=== PATIENT | female | born 1985 | race Caucasian/White ===

== ENCOUNTER 2022-09-05 11:06 | Outpatient (REF) | payer MEDICARE, MEDICAID, SELFPAY ==
--- NOTE | 2022-09-05 11:14 | ECG_ITS ---
Test Reason : R42 Blood Pressure : / mmHG Vent. Rate : 069 BPM Atrial Rate : 069 BPM P-R Int : 150 ms QRS Dur : 084 ms QT Int : 398 ms P-R-T Axes : 049 080 018 degrees QTc Int : 426 ms Normal sinus rhythm with sinus arrhythmia Normal ECG No previous ECGs available Referred By: Mayelin Carey Electronically Signed By:DENNIS TOBIAS MD
[2022-09-05 11:30] LABS: MANUAL DIFF FLAG NO
[2022-09-05 11:59] LABS: Basophils Percent Auto 0.9 % (0-2); Eosinophils Percent Auto 0.9 % (0-4); Hemoglobin 13.1 g/dl (12.0-16.0); Imm Gran Abs Auto 0.01 X10*3/uL (0.00-0.03); Imm Gran Pct Auto 0.2 % (0.0-0.4); Lymphocytes Percent Auto 43.8 % (20-40); Mean Corpuscular HGB Conc 33.6 g/dl (31.0-35.0); Mean Corpuscular Hemoglobin 29.2 pg (27.0-33.0); Mean Corpuscular Volume 87.1 fL (80.0-98.0); Mean Platelet Volume 10.3 fL (9.4-12.3); Monocytes Absolute Auto 0.4 X10*3/uL (0.1-1.2); Monocytes Percent Auto 8.2 % (2-11); Neutrophils Absolute Auto 2.1 x10*3/uL (2.0-8.3); Platelet Count 265 X10*3/uL (160-400); Red Blood Count 4.48 X10*6/uL (4.20-5.50); Red Cell Distribution Width 12.7 % (11.0-16.0); White Blood Count 4.6 X10*3/uL (4.8-10.8)
[2022-09-05 15:11] LABS: Alanine Aminotransferase 32 U/L (0-31); Albumin Level 4.4 g/dL (3.5-5.0); Alkaline Phosphatase 45 U/L (39-117); Anion Gap 14 (12-20); Aspartate Amino Transferase 26 U/L (5-31); Bilirubin Total 0.6 mg/dL (0.0-1.0); Blood Urea Nitrogen 9 mg/dL (9-16); Calcium 9.5 mg/dL (8.4-10.2); Carbon Dioxide 25 mmol/L (22-29); Chloride 106 mmol/L (96-108); Cholesterol 200 mg/dL; Estimated Glomerular Filt Rate > 60; Glucose Random 83 mg/dL (60-115); HDL Cholesterol 57 mg/dL; LDL Cholesterol Calculated 128 mg/dl; Potassium 4.9 mmol/L (3.3-5.1); Sodium 140 mmol/L (135-145); TSH reflex Free T4 1.34 uIU/mL (0.32-4.0); Total Protein 6.9 g/dL (6.5-8.0); Triglycerides 78 mg/dL; Vitamin D 25-OH Total 29.2 ng/mL (>30)
[2022-09-05 15:22] LABS: Vitamin B12 425 pg/mL (200-900)
== END 2022-09-05 11:07 | disposition home or self-care (01) ==
LOC: HO.LAB 11:06
PROVIDERS: PCP Nurse Practitioner Family; Visit Provider Nurse Practitioner Family
DX: Z13.21 Encounter for screening for nutritional disorder (principal); Z13.29 Encounter for screening for other suspected endocrine disorder; Z13.0 Encounter for screening for diseases of the blood and blood-forming organs and certain disorders involving the immune mechanism; E78.00 Pure hypercholesterolemia, unspecified
CPT/HCPCS: 36415; 80053; 80061; 82306; 82607; 84443; 85025; 93005

== ENCOUNTER 2022-10-06 09:57 | Outpatient (REF) | payer MEDICARE, MEDICAID, SELFPAY ==
[2022-10-06 11:46] LABS: Vitamin D 25-OH Total 30.4 ng/mL (>30)
== END 2022-10-06 09:58 | disposition home or self-care (01) ==
LOC: HO.LAB 09:57
PROVIDERS: PCP Nurse Practitioner Family; Visit Provider Nurse Practitioner Family
DX: E55.9 Vitamin D deficiency, unspecified (principal)
CPT/HCPCS: 36415; 82306

== ENCOUNTER 2023-05-03 08:32 | Outpatient (AMB) | payer MEDICARE, MEDICAID, SELFPAY ==
--- NOTE | 2023-05-03 08:33 | MHC.PC.OV ---
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 Accompanied by: Self / Same As Patient Allergies Latex, Natural Rubber Allergy (Mild, Verified 05/03/23 08:34) rash Tobacco use date assessed: 05/03/23 Dental Screening Dental Screen Date: 05/03/23 Did you have a dental visit in the last 12 months?: Yes Did you have a dental problem in the last 6 months where you did not have access to dental care?: No Was dental information given to patient?: Patient has dentist HPI HPI Comments History of Present Illness Details 37-year-old female history of Otero's esophagus, anxiety, bipolar and depression.Presents today for follow up appointment last seen in September. Patient states lightheaded/dizziness and palpitations daily, no syncope. Three day Holter monitor ordered to further evaluate this. Patient states she is interested in seeing a counselor will follow-up on referral that was placed in August as well as seeing a psychiatrist. Referral entered for this. Patient reports few months ago she did 1 episode of dark blood in her stool and abdominal cramping. Has not yet seen Gastroenterology for history of Otero's esophagus. Patient advised to follow-up if she has re-occurance of blood in her stool,abd pain. Patient also reports she cut her omeprazole to 10 mg daily, patient advised to continue on her omeprazole 20 mg daily and schedule appointment with gastroenterology, previously referred in August. Patient reports she took a Food sensitivity test at home which revealed a moderate allergy to oregano, patient requesting to see an cribber to further evaluate this. Referral entered. [facility]LY [facility], [facility] Medical History Intestinal polyps Surgical History H/O tubal ligation Family History Maternal Grandmother Leukemia Maternal Grandfather Emphysema lung Paternal Grandmother Alcoholism Mother No problems noted. Father Substance abuse Maternal Uncle Myocardial infarct Social History Housing: Apartment Patient Tobacco Use Status: Never used Tobacco e-Cigarette/Vaping Use: Never Used Second Hand Smoke Exposure: No service: No Current occupational status: unemployed Cognitive needs: No Hearing needs: No Vision needs: No Questionnaire Thrive Questionnaire Date Thrive assessed: 09/01/22 I am a: Patient What is your living situation today?: I have a steady place to live Within the past 12 months, did the food you bought not last and you didn't have the money to get more?: I choose not to answer this question Within the past 12 months, did you worry whether your food would run out before you got money to buy more?: Sometimes True Please select the resources that you would like help with: Education MEGAN-7 AMB Questionnaire MEGAN-7 Date MEGAN - 7 assessed: 09/01/22 Source: Developed by Drs. Steven Mason, Gabby Mahajan, Daniel German and colleagues, with an educational cecil from [employer]. Review of Systems Const Denies chills, Denies fatigue, Denies fever(s) and Denies poor appetite Eyes Denies no additional complaints ENT Reports Normal hearing present Card Denies chest pain, Denies syncope, Reports rapid heart rate, Reports lightheadedness and Denies dyspnea Resp Denies cough and Denies dyspnea GI Denies change in stool character, Denies constipation, Denies diarrhea, Denies nausea, Denies vomiting and Reports other Denies urinary frequency, Denies dysuria and Denies urinary urgency Neuro Reports Normal hearing present, Denies confusion and Denies syncope Psych Denies confusion Endo Denies fatigue Physical exam (Primary Care) Vital Signs: Last Vital Signs Pulse 86 05/03/23 08:35 BP 110/70 05/03/23 08:35 Pulse Ox 98 05/03/23 08:35 Oxygen Delivery Method Room Air 05/03/23 08:35 BMI result Body Mass Index 26.8 Tobacco/Smoking Status: Tobacco use Status Tobacco use date assessed 05/03/23 05/03/23 08:35 Patient Tobacco Use Status Never used Tobacco 05/03/23 08:35 e-Cigarette/Vaping Use Never Used 05/03/23 08:35 Thrive Assessment: Date of Thrive Assessment Date Thrive assessed 09/01/22 05/03/23 08:35 Const General: No confusion Orientation/consciousness: No confusion HENMT Head: Yes normocephalic and Yes atraumatic Eyes Conjunctivae: conjunctivae normal Chest Chest palpation & inspection: normal inspection of the chest Resp Effort & Inspection: normal respiratory effort Auscultation: clear to auscultation bilaterally, no crackles, no rhonchi and no wheezes Cardio Rate: regular rate Rhythm: regular rhythm Heart sounds: S1 normal heart sound present and S2 normal heart sound present Peripheral pulses: dorsalis pedis present GI Inspection: Yes normal to inspection General: Yes no CVA tenderness Back/Spine/Pelvis Back: no CVA tenderness Neuro General: No confusion Cranial nerves: Yes Normal hearing present Extrem General: No edema Assessment and Plan Assessment & Plan (1) Anxiety and depression: Code(s): F41.9 - Anxiety disorder, unspecified; F32.A - Depression, unspecified Plan: Referral entered to Psychiatry and will follow-up on counseling referral placed in August. (2) Vitamin D deficiency: Code(s): E55.9 - Vitamin D deficiency, unspecified Plan: Continue on vitamin-D supplements. (3) Palpitations: Code(s): R00.2 - Palpitations Plan: 3 day Holter monitor ordered to further evaluate. (4) Bipolar disorder: Code(s): F31.9 - Bipolar disorder, unspecified Plan: Referral placed to Psychiatry to establish care. (5) Otero's esophagus: Code(s): K22.70 - Otero's esophagus without dysplasia Plan: Patient previously referred to GI in August patient advised to please call central scheduling to put pace appointment. Signs and symptoms reviewed with patient when to seek emergency medical attention or follow-up with PCP. Continue on omeprazole 20 mg daily. Plan Keep scheduled physical exam in September or follow-up sooner if needed. Orders: Orders ECG 3 day holter monitor Today R00.2 - Palpitations Referrals Psychiatry Referral F31.9 - Bipolar disorder, unspecified, F32.A - Depression, unspecified, F41.9 - Anxiety disorder, unspecified Allergy & Immunology Referral T78.1XXA - Other adverse food reactions, not elsewhere classified, initial encounter Coding Level of Care Code Est Pt Level 4 (08115) Diagnoses Anxiety and depression F41.9; F32.A Vitamin D deficiency E55.9 Palpitations R00.2 Bipolar disorder F31.9 Otero's esophagus K22.70
[2023-05-03 08:35] VITALS: BP 110/70; PULSE 86; O2SAT 98; BMI 26.8
== END 2023-05-03 09:08 | disposition home or self-care (01) ==
PROVIDERS: PCP Nurse Practitioner Family; Visit Provider Nurse Practitioner Family
DX: F41.9 Anxiety disorder, unspecified (principal); E55.9 Vitamin D deficiency, unspecified; F31.9 Bipolar disorder, unspecified; K22.70 Barrett's esophagus without dysplasia; R00.2 Palpitations
CPT/HCPCS: 99214

== ENCOUNTER → 2023-05-08 11:37 | Outpatient (REF) | payer MEDICARE, MEDICAID, SELFPAY ==
--- NOTE | 2023-05-08 11:39 | HM_ITS ---
* Total monitoring time 3 days. * Underlying rhythm is sinus. Average ventricular rate 77/Min. Range 40 to 155/Min. * Very rare supraventricular and ventricular ectopy. * No sustained arrhythmias. * No significant pauses or AV blocks. * Various symptoms are described diary including fluttering, anxious, chest discomfort, panic attack, sharp pain but they all correlate with sinus rhythm and some sinus tachycardia. MTDD
== END ==
LOC: HO.CARD 11:37
PROVIDERS: PCP Nurse Practitioner Family; Visit Provider Nurse Practitioner Family
DX: R00.2 Palpitations (principal)
CPT/HCPCS: 93242

== ENCOUNTER → 2023-05-08 11:39 | Outpatient (BNV) | payer MEDICARE, MEDICAID, SELFPAY | PROVIDERS: PCP Nurse Practitioner Family; Visit Provider Internal Medicine | DX: I47.1 Supraventricular tachycardia (principal) | CPT/HCPCS: 93244 ==

== ENCOUNTER 2023-05-31 08:02 | Outpatient (AMB) | payer MEDICARE, MEDICAID, SELFPAY ==
--- NOTE | 2023-05-31 08:24 | MHC.PC.OV ---
Vital Signs 05/31/23 08:25 Height 5 ft 6 in Weight 162 lb BMI 26.1 BP 114/72 Blood Pressure Location Lt brachial Position Sitting Pulse 81 Pulse Source Pulse Oximeter Pulse Oximetry (%) 98 Oxygen Delivery Method Room Air Intake Visit Reasons: office visit Allergies Latex, Natural Rubber Allergy (Mild, Verified 05/31/23 08:25) rash Tobacco use date assessed: 05/03/23 Dental Screening Dental Screen Date: 05/31/23 Did you have a dental visit in the last 12 months?: No Did you have a dental problem in the last 6 months where you did not have access to dental care?: No Was dental information given to patient?: No HPI HPI Comments History of Present Illness Details 37-year-old female history of Otero's esophagus, anxiety, bipolar and depression.Presents today for follow up appointment last seen in September. Patient states lightheaded/dizziness and palpitations daily, no syncope.??Patient reports today for follow-up visit to review altered monitor results. Results final ran detail with patient all her questions were answered. 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 Patient also reports that she feels history of anxiety disorder bipolar could be contributing to her palpitations patient reports that she is going to psychiatric walk-in hours today to discussed starting on medications. Patient reports started speaking with a counselor Radha and is on a wait list for psychiatry. Holter Monitor: Total monitoring time 3 days. Underlying rhythm is sinus.? Average ventricular rate 77/Min.? Range 40 to 155/Min. Very rare supraventricular and ventricular ectopy. No sustained arrhythmias. No significant pauses or AV blocks. Various symptoms are described diary including fluttering, anxious, chest discomfort, panic attack, sharp pain but they all correlate with sinus rhythm and some sinus tachycardia. [facility]LY [facility], [facility] Medical History Intestinal polyps Surgical History H/O tubal ligation Family History Maternal Grandmother Leukemia Maternal Grandfather Emphysema lung Paternal Grandmother Alcoholism Mother No problems noted. Father Substance abuse Maternal Uncle Myocardial infarct Social History Housing: Apartment Patient Tobacco Use Status: Former Tobacco user Tobacco use type: Cigarette e-Cigarette/Vaping Use: Never Used Second Hand Smoke Exposure: No service: No Current occupational status: unemployed Cognitive needs: No Hearing needs: No Vision needs: Yes Questionnaire PHQ-9 Over the last 2 weeks, how often have you been bothered by any of the following problems? 1. Little interest or pleasure in doing things: more than half the days 2. Feeling down, depressed, or hopeless: more than half the days 3. Trouble falling or staying asleep, or sleeping too much: nearly every day 4. Feeling tired or having little energy: more than half the days 5. Poor appetite or overeating: nearly every day (pt states poor apeptite) 6. Feeling bad about yourself - or that you are a failure or have let yourself or your family down: nearly every day 7. Trouble concentrating on things, such as reading the newspaper or watching television: nearly every day 8. Moving or speaking so slowly that other people could have noticed. Or the opposite - being so fidgety or restless that you have been moving around a lot more than usual: nearly every day 9. Thoughts that you would be better off or of hurting yourself in some way: not at all Total score: 21 Depression Screening Interpretation: Positive Source: Developed by Drs. Steven Mason, Gabby Mahajan, Daniel German and colleagues, with an educational cecil from [employer]. Thrive Questionnaire Date Thrive assessed: 05/31/23 I am a: Patient What is your living situation today?: I have a steady place to live Within the past 12 months, did the food you bought not last and you didn't have the money to get more?: Never true Within the past 12 months, did you worry whether your food would run out before you got money to buy more?: Never true Do you have trouble paying for medicines?: No Do you have trouble getting transportation to medical appointments?: No Do you have trouble paying your heating and electricity bill?: No Do you have trouble taking care of your child, family member or friend?: No Do you have trouble with day-to-day activities such as bathing, preparing meals, shopping, managing finances, etc.?: No Are you currently unemployed and looking for a job?: No Are you interested in more education?: No Currently or been in a relationship where the following occur: no concerns reported AUDIT C Alcohol Use Questionnaire (AUDIT-C) 1. How often do you have a drink containing alcohol?: Never (quit 10/22/21) 2. How many drinks containing alcohol do you have on a typical day when you are drinking?: 1 or 2 3. How often do you have six or more drinks on one occasion?: Never Total Score: 0 Score Reviewed/Action Taken: No MEGAN-7 AMB Questionnaire MEGAN-7 Date MEGAN - 7 assessed: 05/31/23 Feeling nervous, anxious, or on edge: 3 = Nearly every day Not being able to stop or control worryin = Nearly every day Worrying too much about different things: 3 = Nearly every day Trouble relaxin = Nearly every day Being so restless that it is hard to sit still: 3 = Nearly every day Becoming easily annoyed or irritable: 3 = Nearly every day Feeling afraid as if something awful might happen: 3 = Nearly every day Total MEGAN-7 score (0-4 normal; 5-9 mild; 10-14 moderate; 15-21 severe): 21 Source: Developed by Drs. Steven Mason, Gabby Mahajan, Daniel German and colleagues, with an educational cecil from [employer]. Review of Systems Const Denies chills, Denies fatigue, Denies fever(s) and Denies poor appetite Eyes Denies no additional complaints ENT Reports Normal hearing present Card Denies chest pain, Denies syncope, Denies rapid heart rate and Denies dyspnea Resp Denies cough and Denies dyspnea GI Denies change in stool character, Denies constipation, Denies diarrhea, Denies nausea and Denies vomiting Denies urinary frequency, Denies dysuria and Denies urinary urgency Neuro Reports Normal hearing present, Denies confusion and Denies syncope Psych Denies confusion Endo Denies fatigue Physical exam (Primary Care) Vital Signs: Last Vital Signs Pulse 81 05/31/23 08:25 BP 114/72 05/31/23 08:25 Pulse Ox 98 05/31/23 08:25 Oxygen Delivery Method Room Air 05/31/23 08:25 BMI result Body Mass Index 26.1 Tobacco/Smoking Status: Tobacco use Status Tobacco use date assessed 05/03/23 05/31/23 08:27 Patient Tobacco Use Status Former Tobacco user 05/31/23 08:30 Tobacco use type Cigarette 05/31/23 08:29 e-Cigarette/Vaping Use Never Used 05/31/23 08:27 PHQ-9: PHQ-9 Score PHQ-9: Total score 21 05/31/23 08:27 Depression Screening Interpretation: Positive Thrive Assessment: Date of Thrive Assessment Date Thrive assessed 05/31/23 05/31/23 08:27 Currently or been in a relationship where the following occur: no concerns reported Const General: No confusion Orientation/consciousness: No confusion HENMT Head: Yes normocephalic and Yes atraumatic Eyes Conjunctivae: conjunctivae normal Chest Chest palpation & inspection: normal inspection of the chest Resp Effort & Inspection: normal respiratory effort Auscultation: clear to auscultation bilaterally, no crackles, no rhonchi and no wheezes Cardio Rate: regular rate Rhythm: regular rhythm Heart sounds: S1 normal heart sound present and S2 normal heart sound present GI Inspection: Yes normal to inspection Neuro General: No confusion Cranial nerves: Yes Normal hearing present Extrem General: No edema Assessment and Plan Assessment & Plan (1) Otero's esophagus: Code(s): K22.70 - Otero's esophagus without dysplasia Plan: Continue to establish care with gastroenterology. (2) Palpitations: Code(s): R00.2 - Palpitations Plan: Keep scheduled appointment with Cardiology. (3) Anxiety and depression: Code(s): F41.9 - Anxiety disorder, unspecified; F32.A - Depression, unspecified Plan: Continue to follow with counseling. Patient reports going to psychiatry walk in hours today to dicuss starting on medications. Currently on wait list for psychiatry. (4) Bipolar disorder: Code(s): F31.9 - Bipolar disorder, unspecified Plan: Continue to follow with counseling. Patient reports going to psychiatry walk in hours today to dicuss starting on medications. Currently on wait list for psychiatry. Plan Keep scheduled appointment in September or follow up sooner if needed. Coding Level of Care Code Est Pt Level 3 (59735) Diagnoses Otero's esophagus K22.70 Palpitations R00.2 Anxiety and depression F41.9; F32.A Bipolar disorder F31.9 Additional Codes PHQ-9 - 66178 - PHQ-9 Billing: Y ([id number])
[2023-05-31 08:25] VITALS: BP 114/72; PULSE 81; O2SAT 98; BMI 26.1
== END 2023-05-31 08:47 | disposition home or self-care (01) ==
PROVIDERS: PCP Nurse Practitioner Family; Visit Provider Nurse Practitioner Family
DX: K22.70 Barrett's esophagus without dysplasia (principal); R00.2 Palpitations; F41.9 Anxiety disorder, unspecified; F31.9 Bipolar disorder, unspecified; F32.A Depression, unspecified
CPT/HCPCS: 99213

== ENCOUNTER 2023-06-20 14:09 | Outpatient (REF) | payer MEDICARE, MEDICAID, SELFPAY ==
[2023-06-20 15:43] LABS: Hematocrit 36.7 % (37.0-47.0); Mean Corpuscular HGB Conc 35.4 g/dl (31.0-35.0); Mean Corpuscular Hemoglobin 30.2 pg (27.0-33.0); Mean Corpuscular Volume 85.2 fL (80.0-98.0); Mean Platelet Volume 10.2 fL (9.4-12.3); Platelet Count 263 X10*3/uL (160-400); Red Blood Count 4.31 X10*6/uL (4.20-5.50); Red Cell Distribution Width 12.9 % (11.0-16.0); White Blood Count 5.8 X10*3/uL (4.8-10.8)
[2023-06-20 16:58] LABS: Alanine Aminotransferase 20 U/L (0-31); Albumin Level 4.4 g/dL (3.5-5.0); Alkaline Phosphatase 38 U/L (39-117); Anion Gap 12 (12-20); Aspartate Amino Transferase 21 U/L (5-31); Bilirubin Total 0.4 mg/dL (0.0-1.0); Blood Urea Nitrogen 6 mg/dL (9-16); C Reactive Protein < 0.04 mg/dL (< or = 0.50); Calcium 9.7 mg/dL (8.4-10.2); Carbon Dioxide 25 mmol/L (22-29); Chloride 108 mmol/L (96-108); Estimated Glomerular Filt Rate > 60; Glucose Random 86 mg/dL (60-115); Potassium 3.6 mmol/L (3.3-5.1); Sodium 141 mmol/L (135-145); Total Protein 7.1 g/dL (6.5-8.0)
[2023-06-20 17:04] LABS: TSH reflex Free T4 1.81 uIU/mL (0.32-4.0)
[2023-06-20 17:14] LABS: Folate 16.1 ng/mL (> or = 4.0); Vitamin B12 560 pg/mL (200-900)
[2023-06-24 15:03] LABS: Vitamin D 25-OH, D2 <4 ng/mL; Vitamin D 25-OH, D3 34 ng/mL; Vitamin D 25-OH, Total 34 ng/mL (30-100)
[2023-06-24 19:33] LABS: Transglutaminase Ab IgG <1.0 U/mL; Transglutaminase IgA <1.0 U/mL
== END 2023-06-20 14:10 | disposition home or self-care (01) ==
LOC: HO.LAB 14:09
PROVIDERS: PCP Nurse Practitioner Family; Visit Provider Nurse Practitioner Family
DX: K21.9 Gastro-esophageal reflux disease without esophagitis (principal); K22.70 Barrett's esophagus without dysplasia; K58.1 Irritable bowel syndrome with constipation; K59.01 Slow transit constipation; K58.0 Irritable bowel syndrome with diarrhea; R14.0 Abdominal distension (gaseous); E55.9 Vitamin D deficiency, unspecified; R10.9 Unspecified abdominal pain; Z87.19 Personal history of other diseases of the digestive system
CPT/HCPCS: 36415; 80053; 82306; 82607; 82746; 84443; 85027; 86140; 86364; 99202

== ENCOUNTER 2023-06-20 14:09 | Outpatient (AMB) | payer MEDICARE, MEDICAID, SELFPAY ==
--- NOTE | 2023-06-20 14:27 | MHC.OFFVIS ---
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 Patient was sent home with omeprazole which she just recently wean herself off. Patient also started eating better. She is avoiding certain dietary triggers that she noticed that are causing her symptoms. Patient stopped drinking 2 years ago. Patient also did allergen test [id number] and found out that she is allergic to multiple things that she was used to eating every single day like peppers, tomatoes, eggs, wheat. Patient however is trying to avoid dietary triggers. Reports postprandial loose stools and abdominal bloating. Patient is also burping, not passing much gas. Patient admits to being constipated. Tried smooth move tea in the past. Patient denies melena, hematochezia, unintentional weight loss or ribbon like stools. Patient denies dyspepsia, dysphagia or odynophagia. [facility] Medical History (Updated 06/20/23 @ 15:11 by Vilma Kilpatrick [facility]) Intestinal polyps Otero's esophagus Surgical History H/O tubal ligation Family History Maternal Grandmother Leukemia Maternal Grandfather Emphysema lung Paternal Grandmother Alcoholism Mother No problems noted. Father Substance abuse Maternal Uncle Myocardial infarct Social History Housing: Apartment Patient Tobacco Use Status: Former Tobacco user Tobacco use type: Cigarette e-Cigarette/Vaping Use: Never Used Second Hand Smoke Exposure: No service: No Current occupational status: unemployed Cognitive needs: No Hearing needs: No Vision needs: Yes Review of Systems Const Denies weight gain and Denies weight loss ENT Reports no additional complaints, Denies dysphagia and Denies odynophagia Card Reports no additional complaints Resp Reports no additional complaints GI Denies abdominal pain, Denies belching, Denies melena, Reports bloating, Reports hematochezia (Occasional), Reports constipation, Denies dysphagia, Denies excessive flatus, Denies dyspepsia, Denies heartburn, Denies diarrhea, Reports loose stools, Denies nausea, Denies odynophagia and Denies vomiting Reports no additional complaints Musc Reports no additional complaints Neuro Reports no additional complaints Psych Reports no additional complaints Endo Reports no additional complaints Physical Exam Vital Signs: Last Vital Signs Pulse 60 06/20/23 14:32 BP 105/60 06/20/23 14:32 BMI result Body Mass Index 27.0 Const General: healthy appearing, no acute distress and well developed Nutritional Appearance: well nourished Orientation/consciousness: patient oriented x3 HEENT Head: Yes normal to inspection, Yes normocephalic and Yes atraumatic Face and sinus: Yes normal facial exam Mouth: Normal oral and palatal mucosa present Throat: Yes posterior oropharynx normal, Yes tonsils normal and Yes uvula midline Eyes General: appearance normal, both eyes and all related structures Neck Neck: Yes normal visual inspection, Yes full ROM and Yes trachea midline Thyroid: Thyroid normal Resp Effort & Inspection: normal respiratory effort, able to speak in complete sentences, no tracheal deviation and symmetric chest movement Auscultation: clear to auscultation bilaterally Cardio Rate: regular rate Heart sounds: S1 normal heart sound present and S2 normal heart sound present GI Inspection: Yes normal to inspection and No distended Palpation (GI): Soft to palpation, not firm, nontender and No hepatosplenomegaly present Auscultation: normal bowel sounds General: Yes no CVA tenderness Back/Spine/Pelvis Back: no CVA tenderness Skin General skin exam: elasticity normal, turgor normal and dry skin Neuro General: patient oriented x3 Psych Appearance: grossly normal Mental Status: mental status grossly normal Speech and movement: Normal speech and movement present Affect: normal affect Assessment & Plan Assessment & Plan (1) History of Otero's esophagus: Code(s): Z87.19 - Personal history of other diseases of the digestive system Plan: History of Otero's esophagus. Patient will be sent for upper endoscopy to out Otero's, esophagitis, gastritis, duodenitis. Currently patient is not on any treatment. Previously treated with PPI (2) IBS (irritable bowel syndrome): Code(s): K58.9 - Irritable bowel syndrome without diarrhea Qualifiers: Irritable bowel syndrome type: with constipation Qualified Code(s): K58.1 - Irritable bowel syndrome with constipation Plan: Patient reports postprandial abdominal bloating occasional crampy. Patient states that she is constipated even though she occasionally will have loose stools. Will check for pancreatic insufficiency. Patient denies having history of pancreatitis in the past. C-reactive protein, transglutaminase, CBC, CMP, thyroid study, vitamin B12 and D levels. Discussed with patient avoiding dietary triggers. Discussed low FODMAP diet. List of food recommended as well as list of food to avoid given to patient. (3) Postprandial abdominal bloating: Code(s): R14.0 - Abdominal distension (gaseous) Plan: Occasional postprandial abdominal bloating most likely related to diet. Avoid lactose and gluten. Patient reports that when she tries to avoid gluten or lactose she feels better. Patient also reports to be constipated even though has occasional loose stools. (4) Constipation: Code(s): K59.00 - Constipation, unspecified Qualifiers: Constipation type: slow transit constipation Qualified Code(s): K59.01 - Slow transit constipation Plan: Patient can take Citrucel. Increased fluid intake and activity to promote better bowel motility. I will see her after upper endoscopy, sooner as needed basis. Patient is agreeable to this plan and verbalizes understanding of instructions. She was given the opportunity to ask questions and all questions answered. Thank you for allowing me participate in her care Orders: Orders Pancreatic Elastase-1 06/27/23 R10.9 - Unspecified abdominal pain C Reactive Protein 06/20/23 K58.9 - Irritable bowel syndrome without diarrhea Transglutaminase Ab IgG 06/20/23 R10.9 - Unspecified abdominal pain Transglutaminase IgA 06/20/23 R10.9 - Unspecified abdominal pain Complete Blood Count no Diff 06/20/23 K21.9 - Gastro-esophageal reflux disease without esophagitis Comprehensive Met. Panel 06/20/23 K21.9 - Gastro-esophageal reflux disease without esophagitis TSH reflex Free T4 06/20/23 K59.00 - Constipation, unspecified Vitamin B12 and Folate 06/20/23 R19.7 - Diarrhea, unspecified Vitamin D 25-OH (D2 and D3) 06/20/23 E55.9 - Vitamin D deficiency, unspecified Medications: New methylcellulose (laxative) (Citrucel) take it with full glass of water 500 mg PO DAILY 30 tabs 2RF K59.00 - Constipation, unspecified methylcellulose (laxative) (Citrucel) take it with full glass of water 500 mg PO DAILY 30 tabs 2RF K59.00 - Constipation, unspecified Coding Level of Care Code New Pt Level 4 (33126) Diagnoses History of Otero's esophagus Z87.19 Irritable bowel syndrome with constipation K58.1 Irritable bowel syndrome type: with constipation Postprandial abdominal bloating R14.0 Slow transit constipation K59.01 Constipation type: slow transit constipation Time Spent (min) 45 Comment 30 minutes spent with patient and additional 15 minutes spent reviewing her records
[2023-06-20 14:32] VITALS: BP 105/60; PULSE 60; BMI 27.0
== END 2023-06-20 15:12 | disposition home or self-care (01) ==
PROVIDERS: PCP Nurse Practitioner Family; Visit Provider Nurse Practitioner Family
DX: Z87.19 Personal history of other diseases of the digestive system (principal); K58.1 Irritable bowel syndrome with constipation; R14.0 Abdominal distension (gaseous); K59.01 Slow transit constipation
CPT/HCPCS: 99204

== ENCOUNTER 2023-06-27 10:36 | Outpatient (REF) | payer MEDICARE, MEDICAID, SELFPAY ==
[2023-07-04 23:24] LABS: Pancreatic Elastase-1 >500 mcg/g
== END 2023-06-27 10:37 | disposition home or self-care (01) ==
LOC: HO.LNP 10:36
PROVIDERS: Visit Provider Nurse Practitioner Family
DX: R10.9 Unspecified abdominal pain (principal)
CPT/HCPCS: 82656

== ENCOUNTER 2023-07-25 10:58 | Outpatient (AMB) | payer MEDICARE, MEDICAID, SELFPAY ==
--- NOTE | 2023-07-25 11:02 | A.OFFVIS_ITS ---
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 She is a 38-year-old woman with longstanding history of symptoms, multiple different kinds of symptoms. She initially attributed to as growing up and then alcohol use. However she says she has been sober for about 2 years and continues to experience disease symptoms. She does have underlying history of anxiety and bipolar disorder although she thinks the symptoms are probably on related to the same. She has multiple different times of palpitation including gassy feeling in the chest with bubble as well as occasional fluttering in her chest. She recently had a Holter monitor which did not show any significant arrhythmias and her symptoms correlated with mostly sinus rhythm was sinus tachycardia. She also intermittently feels sudden at renal in [place] where she feels heart is rapidly beating along with diffuse muscle weakness and discomfort followed by weakness. This symptoms happen about twice a week and are not related to any clear triggers. She denies excessive caffeine use or any use of frtp-qxm-klhgfya medications or herbal extracts. She says recently she has not been exercising much because of the symptoms and she is concerned. She also complains of constant dizziness. She has not had any syncopal episodes. However as a teenager she would get tunnel vision and she is started to modify her life when she gets these symptoms. She denies any other cardiac symptoms exertional chest pain, shortness of breath. She drinks plenty of water, says about a gal a day. She has recently has incorporated salt intake in her diet. [facility] Medical History Intestinal polyps Otero's esophagus Surgical History H/O tubal ligation Family History Maternal Grandmother Leukemia Maternal Grandfather Emphysema lung Paternal Grandmother Alcoholism Mother No problems noted. Father Substance abuse Maternal Uncle Myocardial infarct Social History Housing: Apartment Patient Tobacco Use Status: Former Tobacco user Tobacco use type: Cigarette e-Cigarette/Vaping Use: Never Used Second Hand Smoke Exposure: No service: No Current occupational status: unemployed Cognitive needs: No Hearing needs: No Vision needs: Yes Review of Systems Const Denies chills, Denies daytime sleepiness, Denies fatigue, Denies fever(s), Denies frequent falls, Denies poor appetite, Denies snoring, Denies stops breathing during sleep, Denies weakness, Denies weight gain and Denies weight loss Eyes Denies loss of vision ENT Denies dizziness and Denies hearing loss Card Denies chest pain, Denies claudication, Denies leg edema, Denies lightheadedness, Denies palpitations, Denies dyspnea, Denies dyspnea on exertion and Denies orthopnea Resp Denies cough, Denies excessive phlegm production, Denies dyspnea, Denies dyspnea on exertion, Denies snoring and Denies wheezing GI Denies abdominal pain, Denies hematochezia, Denies change in bowel habits, Denies nausea and Denies vomiting Denies urinary frequency and Denies dysuria Musc Denies arthralgias, Denies muscle weakness, Denies numbness and Denies other (frequent falls) Skin/Breast Denies nail changes and Denies rash Neuro Denies Abnormal speech present, Denies dizziness, Denies frequent falls, Denies loss of vision, Denies memory loss, Denies numbness and Denies weakness Psych Denies depression and Denies memory loss Endo Denies fatigue and Denies palpitations Ankit/Lymph Reports easy bruising and Reports other (anemia) Aller/Immun Denies wheezing Physical Exam Vital Signs: Last Vital Signs Pulse 77 07/25/23 11:21 BP 113/75 07/25/23 11:21 BMI result Body Mass Index 26.3 Const General: cooperative, healthy appearing, comfortable, no acute distress, well developed, alert, awake, Physically active and anxious Nutritional Appearance: average body habitus and well nourished Orientation/consciousness: patient oriented x3 Limitations: no limitations HEENT Head: Yes normocephalic and Yes atraumatic Neck Neck: Yes trachea midline, Yes supple and Yes no JVD Resp Effort & Inspection: normal respiratory effort Auscultation: clear to auscultation bilaterally Cardio Jugular venous distension: no JVD Palpation: normal PMI Rate: regular rate Rhythm: regular rhythm Heart sounds: S1 normal heart sound present, S2 normal heart sound present, no click, no gallops, no murmurs and no rubs GI Auscultation: normal bowel sounds Skin General skin exam: no rashes or lesions noted Neuro General: patient oriented x3 and no focal motor deficits Speech: No Abnormal speech present Extrem General: Yes no clubbing, cyanosis or edema Office Procedures EKG Details: EKG shows normal sinus rhythm with rightward axis otherwise normal EKG [id number], Complete Assessment & Plan Assessment & Plan (1) Dizziness: Code(s): R42 - Dizziness and giddiness Plan: Patient with multiple different kind of symptoms associated with constant dizziness and occasionally tunnel vision along with rapid heart rate and symptoms suggestive of catecholamine [place]. Will suggest plasma metanephrine levels, less likelihood of pheochromocytoma or need to rule out. Symptoms could represent underlying dysautonomia. Will suggest head-up tilt-table test to further assess hemodynamic response to the same. Also suggest an echocardiogram to evaluate for any structural abnormalities of the heart. Holter monitor with the symptoms was benign and had no significant arrhythmias. There is no target for treatment at this point time. Symptoms could be related to anxiety/panic disorder. I have advised to participate in stress mitigation strategies to avoid stimulants such as caffeine and alcohol and avoid any josc-ogn-ygoecjo herbal medications that may contain stimulants. Advised to maintain adequate hydration as well as salt intake. Will follow up in the clinic in 6 weeks time after above-mentioned test. Thank you for allowing me to partake in her care Orders: Orders ECG Tilt Table Test Today R42 - Dizziness and giddiness CA echo transthoracic complete Today R42 - Dizziness and giddiness Metanephrines, Plasma Today R00.2 - Palpitations Coding Level of Care Code New Pt Level 3 (84239) Diagnoses Dizziness R42 CPT Codes EKG - CPT: 72329-[id number], Complete ([id number])
[2023-07-25 11:03] VITALS: BP 112/65; PULSE 80; BMI 26.3
[2023-07-25 11:18] VITALS: BP 117/75; PULSE 77
[2023-07-25 11:21] VITALS: BP 113/75; PULSE 77
== END 2023-07-25 11:54 | disposition home or self-care (01) ==
PROVIDERS: PCP Nurse Practitioner Family; Visit Provider Internal Medicine Cardiovascular Disease
DX: R42 Dizziness and giddiness (principal)
CPT/HCPCS: 93010; 99203

== ENCOUNTER 2023-07-25 10:58 | Outpatient (REF) | payer MEDICARE, MEDICAID, SELFPAY ==
[2023-07-29 16:22] LABS: Metanephrine, Free 71 pg/mL (<=57); Normetanephrines, Free 110 pg/mL (<=148); Total Metanephrine, Free 181 pg/mL (<=205)
== END 2023-07-25 10:59 | disposition home or self-care (01) ==
LOC: HO.LAB 10:58
PROVIDERS: PCP Nurse Practitioner Family; Visit Provider Internal Medicine Cardiovascular Disease
DX: R00.2 Palpitations (principal); R42 Dizziness and giddiness
CPT/HCPCS: 36415; 83835; 93005; 99202

== ENCOUNTER → 2023-08-21 15:01 | Outpatient (REF) | payer MEDICARE, MEDICAID, SELFPAY ==
--- NOTE | 2023-08-21 15:04 | CA_ITS ---
Transthoracic Echocardiogram Patient (Last, First, Middle): Shy Saeed, Gender: Female Date of : 1985 Age: 38 Procedure Date: 08/21/2023 Procedure Type: Transthoracic Echocardiogram Location: OP Height: 167.64 cm Weight: 70.31 kg BSA: 1.79 m2 Heart Rate: bpm BP: 120 / 80 mmHg Contractor Broomcorn Threshing: CHAPARRO/PATRICIA Referring MD: Isidro Hunt MD Symptoms: R42 - Dizziness and giddiness Study Quality: Adequate ECG Rhythm: Sinus Conclusions: - The left ventricular systolic function is normal. The calculated ejection fraction is 60% by biplane method. - No obvious valvular pathology seen on this study. Findings Left Ventricle Normal left ventricular cavity size. There is normal left ventricular wall thickness. The left ventricular systolic function is normal. The calculated ejection fraction is 60% by biplane method. There is no evidence of regional wall motion abnormalities. Diastolic function is normal for age. LV peak GLS -19.2%. Right Ventricle Normal right ventricular cavity size and systolic function. Aortic Valve There is a normal trileaflet aortic valve. There is no aortic valve stenosis. There is no aortic valve regurgitation. Mitral Valve The mitral valve appears normal. There is no mitral valve regurgitation. There is no mitral valve stenosis. Pulmonic Valve The pulmonic valve is likely normal. Tricuspid Valve There is trace tricuspid valve regurgitation. There is no evidence of pulmonary hypertension. Great Vessels The asc aorta is normal in size. Venous The inferior vena cava is normal in size and collapses greater than 50% with inspiration. Pericardium/Pleural There is no evidence of pericardial effusion. Prior Study Comparison No prior study available for comparison. Recommendations, Care & Conclusions No obvious valvular pathology seen on this study. Measurements 2D Linear Measurements IVSd: 0.75 0.6-0.9/0.6-1.0 cm LVIDd: 4.54 3.9-5.3/4.2-5.9 cm LVIDd Index: 2.54 2.4-3.2/2.2-3.1 cm/m2 LVIDs: 3.30 2.0-3.6 cm LVPWd: 0.90 0.7-1.1 cm LA Diam: 2.80 2.7-3.8/3.0-4.0 cm LAIDs Index: 1.56 1.5-2.3 cm/m2 LV Mass: 148.63 67-162/88-224 g LV Mass Index: 83.03 43-95/49-115 g/m2 LVOT Diam: 1.90 3.0+(-)1.3 cm 2D Systolic Function EF 4C: 57.00 >55% EF 2C: 63.90 >55% EF BiP: 60.20 >55% Mitral Valve MV Pk E: 0.97 MV PK A: 0.66 MV Decel Time: 153.00 E/A: 1.50 E'Lateral: 14.70 E'Medial: 11.00 E/E' Med: 8.80 E/E' Lat: 6.60 PHT: 45.00 MVA PHT: 4.89 Decel [place]: 6.32 Aortic Valve AoV Pk Jona: 1.25 AoV Mn Jona: 0.95 AoV VTI: 0.31 AoV Pk Grad: 6.00 Aov Mn Grad: 4.00 CORINE Cont.VTI: 1.90 LVOT LVOT Pk Jona: 0.95 LVOT Mn Jona: 0.66 LVOT VTI: 0.20 LVOT Pk Grad: 4.00 LVOT Mn Grad: 2.00 LVOT Diam: 1.90 LVOT Area: 2.84 Diastolic Function MV Pk E: 0.97 MV Pk A: 0.66 E/A: 1.50 E'Medial: 11.00 E/E' Med: 8.80 E' Laterial: 14.70 E/E' Lat: 6.60 Right Ventricle TAPSE (mm): 23.00 TVS' Jona: 12.40 Tricuspid Valve RA Press: 3.00 Great Vessels Aorta Sinus of Valsalva: 2.57 2.0-3.5 cm Ao Asc: 2.70 2.1-3.4 cm Updated in Other Vendor System with Status of Final Jose Cool MD electronically signed on 08/22/2023 10:47:22 AM with status of Final
== END ==
LOC: HO.CARD 15:01
PROVIDERS: PCP Nurse Practitioner Family; Visit Provider Internal Medicine Cardiovascular Disease
DX: R42 Dizziness and giddiness (principal)
CPT/HCPCS: 93306; 93356

== ENCOUNTER → 2023-08-21 15:04 | Outpatient (BNV) | payer MEDICARE, MEDICAID, SELFPAY | PROVIDERS: PCP Nurse Practitioner Family; Visit Provider Internal Medicine | DX: R42 Dizziness and giddiness (principal) | CPT/HCPCS: 93306 ==

== ENCOUNTER → 2023-09-20 15:41 | Outpatient (BNVA) | payer MEDICARE, MEDICAID, SELFPAY | PROVIDERS: PCP Nurse Practitioner Family; Visit Provider Nurse Practitioner Family ==

== ENCOUNTER 2023-09-27 18:10 | Emergency (ER) | payer MEDICARE, MEDICAID, SELFPAY ==
[2023-09-27 18:24] VITALS: BP 144/76; PULSE 74; RESP 14; TEMP 37; O2SAT 98; BMI 25.9
--- NOTE | 2023-09-27 18:25 | ED_ITS ---
HPI - General Adult General Chief complaint: General Medical Stated complaint: Rectum prolapse/pain Time Seen by Provider: 09/28/23 00:27 Source: patient Mode of arrival: ambulatory History of Present Illness HPI narrative: 38-year-old female presents with concerns regarding possible rectal prolapse, she states she has been using Citrucel and not bearing down felt some pressure while having a bowel movement. Related Data Home Medications Medication Instructions Recorded Confirmed cholecalciferol (vitamin D3) 25 25 mcg PO DAILY 10/06/22 07/25/23 mcg (1,000 unit) capsule Previous Rx's Medication Instructions Recorded methylcellulose (laxative) 500 mg 500 mg PO DAILY #30 tabs 06/20/23 tablet (Citrucel) bisacodyl 5 mg tablet,delayed 10 mg (2 x 5 mg) PO ONCE 1 day #2 08/02/23 release (Dulcolax (bisacodyl)) tabs polyethylene glycol 3350 17 238 g PO ONCE #238 grams 08/02/23 gram/dose oral powder (Miralax) Allergies Allergy/AdvReac Type Severity Reaction Status Date / Time Latex, Natural Rubber Allergy Mild rash Verified 09/20/23 15:56 Review of Systems Review of Systems: Pertinent positives and negatives as stated in HPI [facility] Past Medical History Source: nursing notes reviewed Medical History Intestinal polyps Otero's esophagus Surgical History H/O tubal ligation Family History Family History Maternal Grandmother Leukemia Maternal Grandfather Emphysema lung Paternal Grandmother Alcoholism Mother No problems noted. Father Substance abuse Maternal Uncle Myocardial infarct Social History Social History Housing: Apartment Patient Tobacco Use Status: Former Tobacco user Tobacco use type: Cigarette e-Cigarette/Vaping Use: Never Used Second Hand Smoke Exposure: No Advance Directives: No Advance Directives Information Provided: No service: No Current occupational status: unemployed Cognitive needs: No Hearing needs: No Vision needs: Yes Physical Exam ED Vital Signs: Vital Signs - 24 hr 09/27/23 18:24 09/27/23 23:27 Temperature 98.6 F 97.9 F Pulse Rate 74 68 Respiratory Rate 14 20 Blood Pressure 144/76 H 135/79 Pulse Oximetry 98 100 Oxygen Delivery Method Room Air Room Air BMI result Body Mass Index 25.9 VITAL SIGNS: Reviewed. GENERAL: Well developed, well nourished, in no acute distress. HEAD: Normocephalic/atraumatic EYES: PERRLA, EOMI LUNGS: Normal breath sounds. No adventitious sounds or accessory muscle use. SpO2<100> CARDIOVASCULAR: Regular rate and rhythm without noted murmurs ABDOMEN: Soft, non-tender, non-distended with bowel sounds. YEIMI: [Securities Sales Associate-Janeth] there are no fissures/tags, and no prolapsed internal hemorrhoids at the time of my examination. MUSCULOSKELETAL: No tenderness, deformities, or effusions noted on gross inspection. EXTREMITIES: No cyanosis, clubbing or edema. SKIN: Inspection of the skin reveals no rashes NEUROLOGIC: Alert and oriented x 4. Strength and sensation to light touch were grossly intact x 4. Course Course Course Narrative: This is an RME: Additional HPI, ROS, PE not included below will be deferred to primary provider. This is a 60-gfan-lup-female, with a hx of fissures, hemorrhoids, presenting to the emergency department with ?rectal prolapse. She states that she has been taking citrucel over the last several months but stopped over the last several days and has noticed protrusion from her rectum with constipation. Plan: further ER evaluation needed. Medical Decision Making Medical Decision Making MDM Narrative: 38-year-old female with history and clinical presentation most consistent with grade 2 internal hemorrhoid prolapse. They have completely reduced at this time and patient was cautioned that this could happen again. 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 He was reassured and discharged P Differential Diagnosis Differential Diagnoses: The differential diagnosis associated with the presentation includes Please see the discussion above Admission/Observation Consideration of admission/observation: Escalation of care including admission/observation considered Please see the discussion above External Record Review External record reviewed: Outpatient record and Prior outpatient labs Discharge Plan Discharge Clinical Impression: Prolapsed internal hemorrhoids, grade 2 Patient Disposition: Home, Self-Care Instructions: Hemorrhoids (ED) Additional Instructions: 1. Please continue your workup that is arranged for by your primary care doctor and includes Gastroenterology. 2. The prolapsing may occur again but will reduce on its own. If it does not please feel free to return to the emergency room. Return to the ER for any worsening of your symptoms as mentioned above. Prescriptions: No Action bisacodyl [Dulcolax (bisacodyl)] 5 mg tablet,delayed release (DR/EC) 10 mg PO ONCE 1 Days Qty: 2 0RF Rx Instructions: take 2 tabs at noon the day before your colonoscopy polyethylene glycol 3350 [Miralax] 17 gram/dose powder 238 g PO ONCE Qty: 238 0RF Rx Instructions: As directed by gastroenterology department at [facility] cholecalciferol (vitamin D3) 25 mcg (1,000 unit) capsule 25 mcg PO DAILY Citrucel 500 mg tablet 500 mg PO DAILY Qty: 30 2RF Rx Instructions: take it with full glass of water Referrals: Mayelin Carey FNP [Primary Care Provider] -
[2023-09-27 23:27] VITALS: BP 135/79; PULSE 68; RESP 20; TEMP 36.6; O2SAT 100
[2023-09-28 01:28] VITALS: BP 136/82; PULSE 76; RESP 18; O2SAT 99
== END 2023-09-28 01:40 | disposition home or self-care (01) ==
PROVIDERS: Emergency Provider Student in an Organized Health Care Education/Training Program; PCP Nurse Practitioner Family
DX: K64.1 Second degree hemorrhoids (principal); Z87.891 Personal history of nicotine dependence
CPT/HCPCS: 99283; 99284

== ENCOUNTER 2024-01-29 09:56 | Day surgery (SDC) | payer MEDICARE, MEDICAID, SELFPAY ==
[2023-08-03 15:11] VITALS: BMI 26.3
--- NOTE | 2024-01-28 12:57 | HO.ANESPROP2 ---
Documented by User: Akiko Randhawa NP 01/28/24 13:13 HPI - Anesthesia Eval Consult details Narrative: 38yo F for Upper Endoscopy and Colonoscopy Palps, dizzy. W/U with [facility] [place] cardiology - nml echo, holter, tilt table. [facility] Active Problems Active Problems: All Active Problems Dizziness (Acute) Bipolar disorder (Acute) Vitamin D deficiency (Acute) Dizziness (Acute) Palpitations (Acute) Anxiety and depression (Acute) Past Medical History Medical History Intestinal polyps Otero's esophagus Family History Family History Maternal Grandmother Leukemia Maternal Grandfather Emphysema lung Paternal Grandmother Alcoholism Mother No problems noted. Father Substance abuse Maternal Uncle Myocardial infarct Surgical History Surgical History H/O tubal ligation Social History Social History Housing: Apartment Patient Tobacco Use Status: Former Tobacco user Tobacco use type: Cigarette e-Cigarette/Vaping Use: Never Used Second Hand Smoke Exposure: No Use of substances other than those prescribed or required for medical reasons: Yes Substance Use Type Other:: 1 hit today Are you DNR?: No Advance Directives: No Advance Directives Information Provided: Yes service: No Current occupational status: unemployed Cognitive needs: No Hearing needs: No Vision needs: Yes Meds Allergies Allergy/AdvReac Type Severity Reaction Status Date / Time Latex, Natural Rubber Allergy Mild rash Verified 09/20/23 15:56 Home Medications ?Medication ?Instructions ?Recorded ?Confirmed ?Last Taken ?Type cholecalciferol (vitamin D3) 25 25 mcg PO DAILY 10/06/22 07/25/23 Unknown History mcg (1,000 unit) capsule Exam Height,Weight and Vital Signs: Height 5 ft 6 in Weight 73.936 kg Narrative Narrative: ECHO 2022 Conclusions: - The left ventricular systolic function is normal. The calculated ejection fraction is 60% by biplane method. - No obvious valvular pathology seen on this study. Holter 2022 Total monitoring time 3 days. Underlying rhythm is sinus. Average ventricular rate 77/Min. Range 40 to 155/Min. Very rare supraventricular and ventricular ectopy. No sustained arrhythmias. No significant pauses or AV blocks. Various symptoms are described diary including fluttering, anxious, chest discomfort, panic attack, sharp pain but they all correlate with sinus rhythm and some sinus tachycardia. Tilt table report from [place] scanned into chart. No abnormalities in BP/HR with 70 degree tilt. Assessment and Plan Assessment Anesthesia Assessment: Chart Reviewed Documented by User: Prashanth Zafar MD 01/29/24 10:38 [facility] Past Medical History Medical History Intestinal polyps Otero's esophagus Family History Family History Maternal Grandmother Leukemia Maternal Grandfather Emphysema lung Paternal Grandmother Alcoholism Mother No problems noted. Father Substance abuse Maternal Uncle Myocardial infarct Family history of problems with anesthesia: No Surgical History Surgical History H/O tubal ligation History of Problems with Anesthesia: No Social History Social History Housing: Apartment Patient Tobacco Use Status: Former Tobacco user Tobacco use type: Cigarette e-Cigarette/Vaping Use: Never Used Second Hand Smoke Exposure: No Use of substances other than those prescribed or required for medical reasons: Yes Substance Use Type Other:: 1 hit today Are you DNR?: No Advance Directives: No Advance Directives Information Provided: Yes service: No Current occupational status: unemployed Cognitive needs: No Hearing needs: No Vision needs: Yes Meds Allergies Allergy/AdvReac Type Severity Reaction Status Date / Time Latex, Natural Rubber Allergy Mild rash Verified 09/20/23 15:56 Home Medications ?Medication ?Instructions ?Recorded ?Confirmed ?Last Taken ?Type cholecalciferol (vitamin D3) 25 25 mcg PO DAILY 10/06/22 07/25/23 Unknown History mcg (1,000 unit) capsule Exam Airway Mallampati Class: I TM Dist: >3cm Neck ROM: Full Loose/Missing/Broken Teeth: No Heart: rrr Lungs: cta b/l Assessment and Plan Assessment Anesthesia Assessment: Anesthesia Plan Discussed and Smoking Cess. Discussed Final Anesthetic Review Family History of Problems with Anesthesia: No History of Problems with Anesthesia: No NPO: Yes ASA Class: II Final Preanesthetic Review: No Changes in Pt Med Stat, Meds/Allgs Chart Reviewed, Consent Obtained/Reviewed and Anes Risks/Benef Reviewed Patient Risk: Intermediate Procedure Risk: Intermediate Anesthetic Plan Anesthetic Plan: MAC: Disposition: Standard PACU
[2024-01-29 10:13] VITALS: BP 120/71; PULSE 90; RESP 18; TEMP 36.9; O2SAT 97; BMI 25.0
--- NOTE | 2024-01-29 10:17 | MHC.SHP ---
Pre-Procedural Eval Section A - 24 Hr Update-Section A only Date of Service: 01/29/24 Section B - Complete if H&P > 30 days Chief Complaint: hx of barretts and colon polyps Details of Present Illness: hx of colon poylps Relevant Family History (Specify if Yes): No Relevant Social History: None Present Medications: see Short Stay Collaborative assessment Medical History: Significant History (Intestinal polyps Otero's esophagus) History of Previous Operations: Relevant previous surgery/procedure and date(s) (tubal ligation, colonoscopy, EGD ) Allergies: Allergies Allergy/AdvReac Type Severity Reaction Status Date / Time Latex, Natural Rubber Allergy Mild rash Verified 09/20/23 15:56 Review of Systems Sugical H&P ROS: Negative: Constitution, Cardiovascular, Respiratory, Neurological, Psychiatric, Hem-Onc, Allergic/Immunologic, Gastrointestinal, Genitourinary, Musculoskeletal, Integumentary, Endocrine and Eyes/Ears/Nose/Throat Exam Surgical H&P Exam: Normal: HEENT, Normal: Heart, Normal: Lungs, Normal: Extremities, Normal: Abdomen, Normal: Skin and Normal: Neurological Plan Diagnosis/Plan: Unchanged I have reviewed the history and physical and performed a pertinent physical examination on my patient. No changes have occurred unless specified. EGD and colonoscopy due to hx of barretts and colon polyps Time Spent With Patient Time: Total time managing care of this patient today ____ minutes.
[2024-01-29 10:25] VITALS: BMI 25.0
[2024-01-29] MEDS: Lactated Ringers 1,000 ML 100 ML IVCONT (10:32)
--- NOTE | 2024-01-29 11:16 | P.OP_ITS ---
Operative Note Operative Note Date of Service: 01/29/24 Narrative: Operative Information Procedure Description: EGD, Colonoscopy Indication: hx of barretts and colon polyps, chronic diarrhea Anesthesia: MAC FLEXIBLE TRANSORAL UPPER GASTROINTESTINAL ENDOSCOPY AND COLONOSCOPY PROCEDURE NOTE UPPER ENDOSCOPY Consent: Indications for the procedure and potential complications of bleeding, perforation, reaction to medications and missed diagnosis were discussed with the patient and informed consent was obtained. Instrument: Olympus GIF H 190 J mid size upper endoscope Monitoring: Vital signs and clinical assessment, continuous EKG monitoring, Pulse oximetry, Carbon Dioxide monitoring and blood pressure monitoring were done throughout the procedure. Procedure: The patient was placed in the left lateral decubitis position and pre-procedure medications were administered and a bite block was placed. The endoscope was inserted into the mouth and advanced under direct vision to the third part of duodenum. A careful inspection was made as the upper endoscope was withdrawn including a retroflexed examination of the proximal stomach; Findings and interventions are described below. Findings: Larynx:normal Esophagus: GE junction at 40 cm, diaphragm hiatus at 40 cm, bogginess and erythema GEJ with possible short segment Barretts, bx taken from GEJ, distal and proximal esophagus Stomach: Normal mucosa. Biopsies were obtained. Grade 2 flap valve on retroflexed examination of the cardia. Duodenum: Normal bulb and descending duodenum, bx taken Intervention: Biopsies as noted above, COLONOSCOPY Instrument: Olympus variable stiffness pediatric scope 190L Colonoscopy Monitoring: Vital signs and clinical assessment, continuous EKG monitoring, Pulse oximetry, Carbon Dioxide monitoring and blood pressure monitoring were done throughout the procedure. Colon withdrawal time was 11 minutes. Procedure: The patient was placed in the left lateral decubitis position and pre-procedure medications were administered. After a digital rectal examination of the ano-rectum, the video colonoscope was inserted into the rectum and advanced through the colon to the cecum/TI. The colonoscope was slowly withdrawn in a retrograde panoramic fashion and the colon mucosa was carefully examined including a retroflexed view of the rectum. Findings and interventions are described below. Procedure Difficulty:moderate Findings: Terminal Ileum-normal, bx taken Random colon bx taken Cecum:2-3 mm sessile polyp removed with cold forceps Ascending Colon: normal Transverse Colon -normal Descending Colon:normal Sigmoid Colon: normal Rectum: Retroflexion with small internal hemorrhoids, grade I Anorectum - normal Colon preparation: Freeman Bowel Preparation Scale Right colon; 2 Transverse colon: 2 Left colon; 2 (0 = Unprepared colon segment with mucosa not seen due to solid stool that cannot be cleared. 1 = Portion of mucosa of the colon segment seen, but other areas of the colon segment not well seen due to staining, residual stool and/or opaque liquid. 2 = Minor amount of residual staining, small fragments of stool and/or opaque liquid, but mucosa of colon segment seen well. 3 = Entire mucosa of colon segment seen well with no residual staining, small fragments of stool or opaque liquid) Impression and Post Procedure Diagnosis: Endoscopy Findings: mild esophagitis possible barretts Colonoscopy Findings: colon polyp internal hemorrhoids Plan: Await Pathology results Repeat Colonoscopy in 5-7 years due to prior hx of colon polyps or earlier if clinically indicated High fiber diet leaflet avoid straining at stool, epsom salts and sitz bath, anusol supps or cream if Barretts pos then repeat EGD 3-5 yrs, consider resuming PPI Above findings were reviewed with the patient and relevant handouts were provided if indicated.
[2024-01-29 12:17] VITALS: BP 115/67; PULSE 98; RESP 16; TEMP 36.6; O2SAT 100
[2024-01-29 12:32] VITALS: BP 111/68; PULSE 80; RESP 20; TEMP 36.7; O2SAT 100
== END 2024-01-29 13:10 | disposition home or self-care (01) ==
PROVIDERS: PCP Nurse Practitioner Family; Visit Provider Internal Medicine Gastroenterology
PROC: (CPT 45380; principal; 2024-01-29 12:40)
DX: K52.9 Noninfective gastroenteritis and colitis, unspecified (principal); Z86.010 Personal history of colon polyps; K63.5 Polyp of colon; K64.0 First degree hemorrhoids; Z87.19 Personal history of other diseases of the digestive system; K20.80 Other esophagitis without bleeding; Q39.8 Other congenital malformations of esophagus; K44.9 Diaphragmatic hernia without obstruction or gangrene; Z91.040 Latex allergy status; Z98.51 Tubal ligation status
CPT/HCPCS: 45380; 43239; 88305; 88313; 88342; J1596; J2704

== ENCOUNTER → 2024-01-29 09:56 | Outpatient (BNV) | payer MEDICARE, MEDICAID, SELFPAY | PROVIDERS: PCP Nurse Practitioner Family; Visit Provider Internal Medicine Gastroenterology | DX: K20.90 Esophagitis, unspecified without bleeding (principal); K63.5 Polyp of colon; K64.8 Other hemorrhoids | CPT/HCPCS: 43239; 45380 ==

== ENCOUNTER 2024-01-30 07:41 | Outpatient (REF) | payer MEDICARE, MEDICAID, SELFPAY ==
--- NOTE | ~2024-01-30 | US_ITS ---
EXAMINATION: US ABDOMEN COMPLETE CLINICAL INFORMATION: Unspecified abdominal pain. Flank pain. Rule out kidney stones or other lesions. COMPARISON: None available. TECHNIQUE: Real-time imaging of the abdominal viscera. FINDINGS: PANCREAS: Normal. ABDOMINAL AORTA: The proximal, mid, and distal segments are normal in caliber. INFERIOR VENA CAVA: Visualized portions are normal. LIVER: The liver is normal in size. The liver contour is normal. Liver echotexture is normal. No focal hepatic lesion. There is no intrahepatic biliary duct dilatation seen. GALLBLADDER: Normal. The gallbladder is physiologically distended without evidence of stones, sludge, polyps, wall thickening or pericholecystic fluid. COMMON BILE DUCT: Normal in caliber measuring 0.33 cm in diameter. RIGHT KIDNEY: Normal. No hydronephrosis. No renal calculi or focal parenchymal lesions. The kidney measures 11.7 cm in maximum dimension. LEFT KIDNEY: Normal. No hydronephrosis. No renal calculi or focal parenchymal lesions. The kidney measures 10.8 cm in maximum dimension. SPLEEN: Normal. The spleen measures 9.6 cm in maximum dimension. FREE FLUID: None. US/US abdomen complete IMPRESSION: Unremarkable exam.
[2024-01-30 09:43] LABS: Appearance Urine Turbid; Color Urine Dark Yellow; Glucose Urine UA Negative (Negative); Leukocyte Esterase Urine Trace (Negative); Nitrite Urine Negative (Negative); PH 5.5 (5.0-9.0); Specific Gravity - Urine 1.025 (1.005-1.025); UMIC TRIGGER UACC YES; Urine Blood Negative (Negative); Urine Ketones Negative (Negative); Urine Protein Negative (Neg-Trace)
[2024-01-30 10:02] LABS: Bacteria Urine 4+ (None Seen); Hyaline Casts Urine 0-2 /LPF (0-2); RBC Urine 0-2 /HPF (0-2); Squamous Epithelial Cell Urine >20 /HPF (0-2); WBC Urine 0-5 /HPF (0-5)
== END 2024-01-30 07:42 | disposition home or self-care (01) ==
LOC: HO.US 07:41
PROVIDERS: PCP Internal Medicine; Visit Provider Internal Medicine Gastroenterology
DX: R10.9 Unspecified abdominal pain (principal)
CPT/HCPCS: 76700; 81001

== ENCOUNTER 2024-02-12 07:44 | Outpatient (AMB) | payer MEDICARE, MEDICAID, SELFPAY ==
--- NOTE | 2024-02-12 07:59 | MHC.OFFVIS ---
Vital Signs 02/12/24 08:01 Height 5 ft 6 in Weight 158 lb BMI 25.5 BP 93/57 L Blood Pressure Location Lt brachial Position Sitting Pulse 85 Intake Visit Reasons: s/p double; Dr. Garcia Intake Note: Patient follow up for EGD/Colonoscopy and Kidney US results Patient cc: RLQ pain, acid reflex, between diarrhea and constipation. Denies any othr GI issues for today. 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 Garcia: Details: LAST VISIT History of Otero's esophagus History of Otero's esophagus. Patient will be sent for upper endoscopy to out Otero's, esophagitis, gastritis, duodenitis. Currently patient is not on any treatment. Previously treated with PPI IBS (irritable bowel syndrome) Patient reports postprandial abdominal bloating occasional crampy. Patient states that she is constipated even though she occasionally will have loose stools. Will check for pancreatic insufficiency. Patient denies having history of pancreatitis in the past. C-reactive protein, transglutaminase, CBC, CMP, thyroid study, vitamin B12 and D levels. Discussed with patient avoiding dietary triggers. Discussed low FODMAP diet. List of food recommended as well as list of food to avoid given to patient. Postprandial abdominal bloating Occasional postprandial abdominal bloating most likely related to diet. Avoid lactose and gluten. Patient reports that when she tries to avoid gluten or lactose she feels better. Patient also reports to be constipated even though has occasional loose stools. Constipation Patient can take Citrucel. Increased fluid intake and activity to promote better bowel motility. I will see her after upper endoscopy, sooner as needed basis. Patient is agreeable to this plan and verbalizes understanding of instructions. She was given the opportunity to ask questions and all questions answered. ? Thank you for allowing me participate in her care Plan Orders Orders Pancreatic Elastase-1 06/27/23 R10.9 C Reactive Protein 06/20/23 K58.9 Transglutaminase Ab IgG 06/20/23 R10.9 Transglutaminase IgA 06/20/23 R10.9 Complete Blood Count no Diff 06/20/23 K21.9 Comprehensive Met. Panel 06/20/23 K21.9 TSH reflex Free T4 06/20/23 K59.00 Vitamin B12 and Folate 06/20/23 R19.7 Vitamin D 25-OH (D2 and D3) 06/20/23 E55.9 Medications New methylcellulose (laxative) (Citrucel) take it with full glass of water 500 mg PO DAILY 30 tabs 2RF K59.00 methylcellulose (laxative) (Citrucel) take it with full glass of water 500 mg PO DAILY 30 tabs 2RF K59.00 UPPER ENDOSCOPY AND COLONOSCOPY Findings: Larynx:normal Esophagus: GE junction at 40 cm, diaphragm hiatus at 40 cm, bogginess and erythema GEJ with possible short segment Barretts, bx taken from GEJ, distal and proximal esophagus Stomach: Normal mucosa. Biopsies were obtained. Grade 2 flap valve on retroflexed examination of the cardia. Duodenum: Normal bulb and descending duodenum, bx taken Intervention: Biopsies as noted above, Findings: Terminal Ileum-normal, bx taken Random colon bx taken Cecum:2-3 mm sessile polyp removed with cold forceps Ascending Colon: normal Transverse Colon -normal Descending Colon:normal Sigmoid Colon: normal Rectum: Retroflexion with small internal hemorrhoids, grade I Anorectum - normal Colon preparation: [place] Bowel Preparation Scale Right colon; 2 Transverse colon: 2 Left colon; 2 (0 = Unprepared colon segment with mucosa not seen due to solid stool that cannot be cleared. 1 = Portion of mucosa of the colon segment seen, but other areas of the colon segment not well seen due to staining, residual stool and/or opaque liquid. 2 = Minor amount of residual staining, small fragments of stool and/or opaque liquid, but mucosa of colon segment seen well. 3 = Entire mucosa of colon segment seen well with no residual staining, small fragments of stool or opaque liquid) Impression and Post Procedure Diagnosis: Endoscopy Findings: mild esophagitis possible barretts Colonoscopy Findings: colon polyp internal hemorrhoids Plan: Await Pathology results Repeat Colonoscopy in 5-7 years due to prior hx of colon polyps or earlier if clinically indicated High fiber diet leaflet avoid straining at stool, epsom salts and sitz bath, anusol supps or cream if Barretts pos then repeat EGD 3-5 yrs, consider resuming PPI PATHOLOGY RESULTS Diagnosis A. Cecum, polypectomy: Colonic mucosa with mild surface hyperplastic changes; multiple additional levels examined. B. Terminal ileum, biopsy: Terminal ileal mucosa within normal limits. C. Colon, random, biopsy: Colonic mucosa within normal limits. D. Duodenum, biopsy: Small intestinal mucosa within normal limits. E. Stomach, biopsy: Oxyntic mucosa with mild chronic inactive inflammation; no Helicobacter organisms seen. F. EG junction, biopsy: - Cardiofundic-type mucosa with moderate chronic inactive inflammation; no intestinal metaplasia seen. - Squamous mucosa within normal limits. G. Esophagus, distal, biopsy: Squamous epithelium within normal limits; no inflammation seen. H. Esophagus, proximal, biopsy: Squamous epithelium within normal limits; no inflammation seen TODAY'S VISIT Patient is here today for follow-up and to discuss upper endoscopy colonoscopy results. Patient also had blood work done. Show moderate chronic inactive inflammation at the EG junction. Cecal polyps was hyperplastic. Random biopsies from colon showed colonic mucosa within normal limits. Duodenal biopsy showed small intestinal mucosa within normal limits. Patient denies any ill effects from the prep, anesthesia or procedure itself. Patient reports to be feeling well except for right lower quadrant pain that radiates to her flank. Patient has scheduled CT scan to rule out kidney stone. Patient reports occasional acid reflux depending on what she eats. Patient is trying low FODMAP diet as much as she can. Reports occasional postprandial abdominal bloating. Reports occasional dyspepsia without dysphagia or odynophagia. Denies melena, hematochezia, unintentional weight loss or ribbon like stools. Patient does admit that she gets anxious and she is very stressed out. Recently was just placed on escitalopram and hopefully she will start feeling better. She realizes that lot of her stress and anxiety could be causing her GI symptoms. [facility] Medical History Intestinal polyps Otero's esophagus Surgical History H/O tubal ligation Family History Maternal Grandmother Leukemia Maternal Grandfather Emphysema lung Paternal Grandmother Alcoholism Mother No problems noted. Father Substance abuse Maternal Uncle Myocardial infarct Social History Housing: Apartment Patient Tobacco Use Status: Former Tobacco user Tobacco use type: Cigarette e-Cigarette/Vaping Use: Never Used Second Hand Smoke Exposure: No service: No Current occupational status: unemployed Cognitive needs: No Hearing needs: No Vision needs: Yes Review of Systems Const Denies weight gain and Denies weight loss ENT Reports no additional complaints, Denies dysphagia and Denies odynophagia Card Reports no additional complaints Resp Reports no additional complaints GI Reports abdominal pain (RLQ), Denies belching, Denies melena, Reports bloating, Reports constipation, Denies dysphagia, Denies excessive flatus, Denies dyspepsia, Denies heartburn, Denies diarrhea, Reports loose stools, Denies nausea, Denies odynophagia and Denies vomiting Reports no additional complaints Musc Reports no additional complaints Neuro Reports no additional complaints Psych Reports no additional complaints Endo Reports no additional complaints Physical Exam Vital Signs: Last Vital Signs Pulse 85 02/12/24 08:01 BP 93/57 L 02/12/24 08:01 BMI result Body Mass Index 25.5 Const General: healthy appearing, no acute distress and well developed Nutritional Appearance: well nourished Orientation/consciousness: patient oriented x3 Resp Effort & Inspection: normal respiratory effort, able to speak in complete sentences, no tracheal deviation and symmetric chest movement Auscultation: clear to auscultation bilaterally Cardio Rate: regular rate GI Inspection: Yes normal to inspection and No distended Palpation (GI): Soft to palpation, not firm, nontender and No hepatosplenomegaly present Auscultation: normal bowel sounds General: Yes no CVA tenderness Back/Spine/Pelvis Back: no CVA tenderness Skin General skin exam: elasticity normal, turgor normal and dry skin Neuro General: patient oriented x3 Psych Appearance: grossly normal Mental Status: mental status grossly normal Assessment & Plan Assessment & Plan (1) History of Otero's esophagus: Code(s): Z87.19 - Personal history of other diseases of the digestive system (2) IBS (irritable bowel syndrome): Code(s): K58.9 - Irritable bowel syndrome without diarrhea Qualifiers: Irritable bowel syndrome type: with both diarrhea and constipation Qualified Code(s): K58.2 - Mixed irritable bowel syndrome (3) Postprandial abdominal bloating: Code(s): R14.0 - Abdominal distension (gaseous) (4) Constipation: Code(s): K59.00 - Constipation, unspecified Qualifiers: Constipation type: slow transit constipation Qualified Code(s): K59.01 - Slow transit constipation (5) RLQ abdominal pain: Code(s): R10.31 - Right lower quadrant pain Plan Continue low FODMAP diet. Patient will be started on PPI for her reflux. Moderate chronic inflammation seen at the GE junction. Barretts not identified on biopsy. Discussed with patient avoiding dietary triggers and late night snacking. Staying upright for minimum 3 hours after meals discussed with patient. High-fiber diet. Patient can also use fiber supplement to help her with her bowels. I will see patient in 3 months, sooner on as needed basis. Patient is agreeable to this plan and verbalizes understanding of instructions. She was given the opportunity to ask questions and all questions answered. Thank you for allowing me to participate in her care Medications: New pantoprazole 20 mg PO DAILY 90 tabs 1RF Coding Level of Care Code Est Pt Level 4 (63763) Diagnoses History of Otero's esophagus Z87.19 Irritable bowel syndrome with both constipation and diarrhea K58.2 Irritable bowel syndrome type: with both diarrhea and constipation Postprandial abdominal bloating R14.0 Slow transit constipation K59.01 Constipation type: slow transit constipation RLQ abdominal pain R10.31 Time Spent (min) 35 Comment 20 minutes spent with patient and additional 15 minutes spent reviewing her records
[2024-02-12 08:01] VITALS: BP 93/57; PULSE 85; BMI 25.5
== END 2024-02-12 08:24 | disposition home or self-care (01) ==
PROVIDERS: PCP Nurse Practitioner Family; Visit Provider Nurse Practitioner Family
DX: Z87.19 Personal history of other diseases of the digestive system (principal); K58.2 Mixed irritable bowel syndrome; R14.0 Abdominal distension (gaseous); K59.01 Slow transit constipation; R10.31 Right lower quadrant pain
CPT/HCPCS: 99214

== ENCOUNTER → 2024-02-12 07:44 | Outpatient (BNVA) | payer MEDICARE, MEDICAID, SELFPAY | PROVIDERS: PCP Nurse Practitioner Family; Visit Provider Nurse Practitioner Family | DX: K58.2 Mixed irritable bowel syndrome (principal); K59.01 Slow transit constipation; R14.0 Abdominal distension (gaseous); R10.31 Right lower quadrant pain; Z87.19 Personal history of other diseases of the digestive system | CPT/HCPCS: 99212 ==

== ENCOUNTER 2024-04-15 10:27 | Outpatient (REF) | payer MEDICARE, MEDICAID, SELFPAY ==
[2024-04-17 16:48] LABS: Immunoglobulin E 16 kU/L (<OR=114)
[2024-04-21 00:04] LABS: C1 Esterase Inhibitor 88 % (>=68)
== END 2024-04-15 10:28 | disposition home or self-care (01) ==
LOC: HO.LAB 10:27
PROVIDERS: PCP Internal Medicine; Visit Provider Nurse Practitioner Family
DX: R14.0 Abdominal distension (gaseous) (principal); Z91.018 Allergy to other foods
CPT/HCPCS: 36415; 82785; 83520; 86003; 86160; 86161

== ENCOUNTER 2024-06-20 22:37 | Emergency (ER) | payer MEDICARE, MEDICAID, SELFPAY ==
--- NOTE | ~2024-06-20 | CT_ITS ---
EXAMINATION: CT ABDOMEN AND PELVIS WITHOUT CONTRAST CLINICAL INFORMATION: Flank pain. COMPARISON: None available. TECHNIQUE: Multidetector volumetric imaging was performed from the superior aspect of the liver through the pubic symphysis. Sagittal and coronal reformatted images were obtained on the technologist's workstation. This CT examination was performed using dose optimization techniques as appropriate, variously including the following: *Automated exposure control *Adjustment of mA and/or kV according to patient size (this includes techniques or standardized protocols for targeted exams where dose is matched to indication/reason for exam; i.e. extremities or head) *Use of iterative reconstruction technique DLP: 489 mGy-cm FINDINGS: LUNG BASES: The visualized lung bases are unremarkable. LIVER, GALLBLADDER, AND BILIARY TREE: The liver is normal in size, shape, and attenuation. No focal hepatic lesion or biliary ductal dilatation is present. The gallbladder is unremarkable with no evidence of radiopaque gallstones, gallbladder wall thickening, or obvious pericholecystic inflammatory changes. PANCREAS: Unremarkable. SPLEEN: Unremarkable. ADRENAL GLANDS: Unremarkable. KIDNEYS AND URETERS: The kidneys are normal in size, shape, and attenuation. No hydronephrosis, hydroureter, or calculi seen. No perinephric stranding. BLADDER: Unremarkable. GASTROINTESTINAL TRACT: The small and large bowel are unremarkable. The appendix is unremarkable. ABDOMINAL WALL: No significant hernia is appreciated. LYMPH NODES: Normal. VASCULAR: Unremarkable. PELVIC VISCERA: The pelvic viscera are unremarkable for a noncontrast exam. There is minimal free fluid within the pelvis. OSSEOUS STRUCTURES: Unremarkable. CT/CT abdomen pelvis wo IV con IMPRESSION: No significant abnormality. Fleischner guidelines were followed. Electronically signed by: Harvey Camarillo MD 06/21/2024 01:35 AM EDT
[2024-06-20 22:40] VITALS: BP 129/85; PULSE 100; RESP 16; TEMP 36.3; O2SAT 100; BMI 25.4
[2024-06-20 23:02] LABS: MANUAL DIFF FLAG NO
[2024-06-20 23:04] LABS: Basophils Percent Auto 0.5 % (0-2); Eosinophils Absolute Auto 0.1 X10*3/uL (0.0-0.4); Eosinophils Percent Auto 1.5 % (0-4); Hematocrit 35.3 % (37.0-47.0); Imm Gran Abs Auto 0.01 X10*3/uL (0.00-0.03); Imm Gran Pct Auto 0.1 % (0.0-0.4); Lymphocytes Absolute Auto 3.1 X10*3/uL (1.2-4.9); Lymphocytes Percent Auto 40.9 % (20-40); Mean Corpuscular Hemoglobin 29.7 pg (27.0-33.0); Mean Corpuscular Volume 87.4 fL (80.0-98.0); Mean Platelet Volume 10.1 fL (9.4-12.3); Monocytes Absolute Auto 0.6 X10*3/uL (0.1-1.2); Monocytes Percent Auto 8.3 % (2-11); Neutrophils Absolute Auto 3.6 x10*3/uL (2.0-8.3); Neutrophils Percent Auto 48.7 % (45-73); Platelet Count 246 X10*3/uL (160-400); Red Blood Count 4.04 X10*6/uL (4.20-5.50); Red Cell Distribution Width 13.5 % (11.0-16.0); White Blood Count 7.5 X10*3/uL (4.8-10.8)
[2024-06-20 23:17] LABS: Alanine Aminotransferase 28 U/L (0-31); Albumin Level 4.4 g/dL (3.5-5.0); Alkaline Phosphatase 34 U/L (39-117); Anion Gap 13 (12-20); Aspartate Amino Transferase 27 U/L (5-31); Bilirubin Total 0.3 mg/dL (0.0-1.0); Blood Urea Nitrogen 13 mg/dL (9-16); Calcium 9.6 mg/dL (8.4-10.2); Carbon Dioxide 26 mmol/L (22-29); Chloride 105 mmol/L (96-108); Creatinine Clr Calc Pharmacy 85.9; Estimated Glomerular Filt Rate > 60; Glucose Random 106 mg/dL (60-115); Lipase 26 U/L (8-78); Sodium 140 mmol/L (135-145)
[2024-06-20 23:26] VITALS: BP 117/73; PULSE 101; RESP 17; TEMP 37.2; O2SAT 99
--- NOTE | 2024-06-20 23:41 | ED_ITS ---
HPI - General Adult General Chief complaint: Abdominal Pain Stated complaint: ?appendicitis Time Seen by Provider: 06/20/24 23:34 Source: patient Mode of arrival: ambulatory Limitations: no limitations History of Present Illness ED Provider: Dr. Gisele Phillips HPI narrative: Patient comes to the emergency room complaining of right-sided flank pain that has been present for several weeks. However, over the last 2 weeks, the pain has been more frequent, intermittent, radiating from the back on the right side to the right flank down to the groin. Patient states that she does not have hematuria or dysuria, no fever or chills, denies history of kidney stones Related Data Home Medications ?Medication ?Instructions ?Recorded ?Confirmed cholecalciferol (vitamin D3) 25 25 mcg PO DAILY 10/06/22 07/25/23 mcg (1,000 unit) capsule escitalopram oxalate 5 mg tablet 5 mg PO DAILY 02/12/24 Previous Rx's ?Medication ?Instructions ?Recorded methylcellulose (laxative) 500 mg 500 mg PO DAILY #30 tabs 06/20/23 tablet (Citrucel) bisacodyl 5 mg tablet,delayed 10 mg (2 x 5 mg) PO ONCE 1 day #2 08/02/23 release (Dulcolax (bisacodyl)) tabs polyethylene glycol 3350 17 238 g PO ONCE #238 grams 08/02/23 gram/dose oral powder (Miralax) hydrocortisone 2.5 % topical cream 1 appl DE BID-QID PRN hemorrhoids 09/28/23 with perineal applicator #30 grams (Proctosol HC) bisacodyl 5 mg tablet,delayed 20 mg (4 x 5 mg) PO ONCE 1 day #4 01/21/24 release (Dulcolax (bisacodyl)) tabs pantoprazole 20 mg tablet,delayed 20 mg PO DAILY #90 tabs 02/12/24 release Allergies Allergy/AdvReac Type Severity Reaction Status Date / Time Latex, Natural Rubber Allergy Mild rash Verified 06/20/24 22:41 Review of Systems 2 Review of Systems: Constitutional : No Weight loss, No Fever, No Chills, No Night Sweats, No Fatigue, No Malaise ENT/Mouth : No Hearing loss, No Ear Pain, No Nasal Congestion, No Sinus Pain, No Hoarseness, No sore throat, No Rhinorrhea, No Swallowing Difficulty Eyes: No Eye Pain, No Swelling, No Redness, No Foreign Body, No Discharge, No Vision Changes Cardiovascular : No Chest Pain, No SOB, No Dyspnea on Exertion, No Orthopnea, No Edema, No Palpitations Respiratory : No Cough, No Sputum, No Wheezing, No Smoke Exposure, No Dyspnea Gastrointestinal : No Nausea, No Vomiting, No Diarrhea, No Constipation, No abdominal Pain, No Hematochezia, No Melena Genitourinary : no irregular bleeding, No Dysuria, No Urinary Frequency, No Hematuria, No Urinary Incontinence, No Urgency, complaining of right-sided Flank Pain, No Urinary Flow Changes, No Hesitancy Musculoskeletal : No joint pain, No Myalgias, No Joint Swelling Skin : No Skin Lesions, No rash Neuro : No Weakness, No Numbness, No Paresthesias, No Loss of Consciousness, No Dizziness, No Headache Psych : No Anxiety/Panic, No Depression, No SI/HI/AH/VH, No Social Issues, Heme/Lymph: No Bruising, No Bleeding,No Lymphadenopathy Endocrine : No Polyuria, No Polydipsia, No Temperature Intolerance [facility] Past Medical History Medical History Bipolar disorder Anxiety and depression Intestinal polyps Otero's esophagus Surgical History H/O tubal ligation Family History Family History Maternal Grandmother Leukemia Maternal Grandfather Emphysema lung Paternal Grandmother Alcoholism Mother No problems noted. Father Substance abuse Maternal Uncle Myocardial infarct Social History Social History Housing: Apartment Patient Tobacco Use Status: Former Tobacco user Tobacco use type: Cigarette Smoked in Last 30 Days: No e-Cigarette/Vaping Use: Never Used Second Hand Smoke Exposure: No Substance Use Type: Marijuana Advance Directives: No Advance Directives Information Provided: No Do you have a plan to hurt others: No Plan Patient : No service: No Current occupational status: unemployed Cognitive needs: No Hearing needs: No Vision needs: Yes Physical Exam ED Vital Signs: Vital Signs - 24 hr 06/20/24 22:40 06/20/24 23:26 Temperature 97.3 F 99.0 F Pulse Rate 100 101 H Respiratory Rate 16 17 Blood Pressure 129/85 117/73 Pulse Oximetry 100 99 Oxygen Delivery Method Room Air Room Air BMI result Body Mass Index 25.4 Const Other: Appearance: Alert. Oriented X3. No acute distress. Eyes: Pupils equal, round and reactive to light. ENT: Pharynx normal. Neck: Normal inspection. Neck supple. No lymph nodes noted. No crepitus CVS: Normal heart rate and rhythm. Pulses normal. Normal S1 and S2 Respiratory: No respiratory distress. Breath sounds normal. No Wheezing. No rales Abdomen: Soft and nontender. No rigidity. No distention. No CVA tenderness Skin: Skin warm and dry. Normal skin color. Normal skin turgor. Extremities: No lower extremity edema. No Lacerations. No Rash Neuro: Oriented X 3. No motor deficit. No sensory deficit. Moving all extremities. No slurred speech. CN 2 through 12 grossly intact Psych: calm, cooperative, normal affect Medical Decision Making Medical Decision Making [facility] Narrative: My interpretation of labs, normal hematology, normal chemistry, normal LFTs -my interpretation of CT scan, no obvious abnormality. Differential Diagnosis Differential Diagnoses: The differential diagnosis associated with the presentation includes (Kidney stones, renal colic, pyelonephritis, musculoskeletal pain) Admission/Observation Consideration of admission/observation: Escalation of care including admission/observation considered (Given patient's length of symptoms, observation was considered) Lab Data [facility] Lab Attestation statement: I reviewed the patient's lab results. 06/20/24 22:57 06/20/24 22:57 Labs: Lab Results 06/20/24 06/21/24 Range/Units 22:57 00:17 WBC 7.5 (4.8-10.8) X10*3/uL RBC 4.04 L (4.20-5.50) X10*6/uL Hgb 12.0 (12.0-16.0) g/dl Hct 35.3 L (37.0-47.0) % MCV 87.4 (80.0-98.0) fL MCH 29.7 (27.0-33.0) pg MCHC 34.0 (31.0-35.0) g/dl RDW 13.5 (11.0-16.0) % Plt Count 246 (160-400) X10*3/uL MPV 10.1 (9.4-12.3) fL Immature Gran % (Auto) 0.1 (0.0-0.4) % Neut % (Auto) 48.7 (45-73) % Lymph % (Auto) 40.9 H (20-40) % [place] % (Auto) 8.3 (2-11) % Eos % (Auto) 1.5 (0-4) % Baso % (Auto) 0.5 (0-2) % Lymph # (Auto) 3.1 (1.2-4.9) X10*3/uL [place] # (Auto) 0.6 (0.1-1.2) X10*3/uL Eos # (Auto) 0.1 (0.0-0.4) X10*3/uL Baso # (Auto) 0.0 (0.0-0.2) X10*3/uL Abs Immat Gran (auto) 0.01 (0.00-0.03) X10*3/uL Absolute Neuts (auto) 3.6 (2.0-8.3) x10*3/uL Absolute Nucleated RBC 0.000 (0.0-0.012) X10*3/uL Nucleated RBC % (auto) 0.0 (0.0-0.2) /100WBC Sodium 140 (135-145) mmol/L Potassium 4.0 (3.3-5.1) mmol/L Chloride 105 (96-108) mmol/L Carbon Dioxide 26 (22-29) mmol/L Anion Gap 13 (12-20) BUN 13 (9-16) mg/dL Creatinine 0.88 (0.5-1.4) mg/dL Estim Creat Clear Calc 85.9 Estimated GFR > 60 Random Glucose 106 (60-115) mg/dL Calcium 9.6 (8.4-10.2) mg/dL Total Bilirubin 0.3 (0.0-1.0) mg/dL AST 27 (5-31) U/L ALT 28 (0-31) U/L Alkaline Phosphatase 34 L (39-117) U/L Total Protein 7.0 (6.5-8.0) g/dL Albumin 4.4 (3.5-5.0) g/dL Lipase 26 (8-78) U/L Beta HCG, Quant < 2 mIU/mL Urine Color Yellow Urine Appearance Clear Urine pH 6.5 (5.0-9.0) Ur Specific [place] <= 1.005 (1.005-1.025) Urine Protein Negative (Neg-Trace) mg/dL Urine Glucose (UA) Negative (Negative) mg/dL Urine Ketones Negative (Negative) mg/dL Urine Blood Negative (Negative) Urine Nitrite Negative (Negative) Ur Leukocyte Esterase Negative (Negative) Urine Opiates Screen Not Detected (Not Detect) Ur Buprenorphine Scrn Not Detected (Not Detect) ng/mL Ur Oxycodone Screen Not Detected (Not Detect) ng/mL Urine Methadone Screen Not Detected (Not Detect) ng/mL Urine Fentanyl Screen Not Detected (Not Detect) Ur Barbiturates Screen Not Detected (Not Detect) Ur Phencyclidine Scrn Not Detected (Not Detect) Ur Amphetamines Screen Not Detected (Not Detect) U Benzodiazepines Scrn Not Detected (Not Detect) Urine Cocaine Screen Not Detected (Not Detect) U Marijuana (THC) Screen POSITIVE H (Not Detect) Independent Interpretation I performed an independent interpretation of an: CT Scan Interpretation: FINDINGS: LUNG BASES: The visualized lung bases are unremarkable. LIVER, GALLBLADDER, AND BILIARY TREE: The liver is normal in size, shape, and attenuation. No focal hepatic lesion or biliary ductal dilatation is present. The gallbladder is unremarkable with no evidence of radiopaque gallstones, gallbladder wall thickening, or obvious pericholecystic inflammatory changes. PANCREAS: Unremarkable. SPLEEN: Unremarkable. ADRENAL GLANDS: Unremarkable. KIDNEYS AND URETERS: The kidneys are normal in size, shape, and attenuation. No hydronephrosis, hydroureter, or calculi seen. No perinephric stranding. BLADDER: Unremarkable. GASTROINTESTINAL TRACT: The small and large bowel are unremarkable. The appendix is unremarkable. ABDOMINAL WALL: No significant hernia is appreciated. LYMPH NODES: Normal. VASCULAR: Unremarkable. PELVIC VISCERA: The pelvic viscera are unremarkable for a noncontrast exam. There is minimal free fluid within the pelvis. OSSEOUS STRUCTURES: Unremarkable. CT/CT abdomen pelvis wo IV con IMPRESSION: No significant abnormality. Fleischner guidelines were followed. Critical Care Time Critical Care Time Critical Care Time: Yes Total Critical Care Time: 45 Attestation: I have personally provided critical care time. Time includes review of lab data, radiology results, discussion with consultants, and monitoring for potential decompensation. Intervention performed as documented. Discharge Plan Discharge Clinical Impression: Chronic flank pain Patient Disposition: Home, Self-Care Instructions: Flank Pain (ED) Additional Instructions: Please follow-up with your primary care physician tomorrow. If you have any worsening or new symptoms, please return to the emergency room or call 911 Prescriptions: No Action bisacodyl [Dulcolax (bisacodyl)] 5 mg tablet,delayed release (DR/EC) 10 mg PO ONCE 1 Days Qty: 2 0RF Rx Instructions: take 2 tabs at noon the day before your colonoscopy polyethylene glycol 3350 [Miralax] 17 gram/dose powder 238 g PO ONCE Qty: 238 0RF Rx Instructions: As directed by gastroenterology department at [facility] hydrocortisone [Proctosol HC] 2.5 % cream with perineal applicator 1 appl DE BID-QID PRN (Reason: hemorrhoids) Qty: 30 2RF bisacodyl [Dulcolax (bisacodyl)] 5 mg tablet,delayed release (DR/EC) 20 mg PO ONCE 1 Days Qty: 4 0RF Rx Instructions: take at noon the day before colonoscopy cholecalciferol (vitamin D3) 25 mcg (1,000 unit) capsule 25 mcg PO DAILY Citrucel 500 mg tablet 500 mg PO DAILY Qty: 30 2RF Rx Instructions: take it with full glass of water escitalopram oxalate 5 mg tablet 5 mg PO DAILY pantoprazole 20 mg tablet,delayed release (DR/EC) 20 mg PO DAILY Qty: 90 1RF Print Language: Tanzanian
[2024-06-20 23:56] LABS: HCG Quantitative < 2 mIU/mL
[2024-06-21 00:24] LABS: Appearance Urine Clear; Color Urine Yellow; Glucose Urine UA Negative (Negative); Leukocyte Esterase Urine Negative (Negative); Nitrite Urine Negative (Negative); PH 6.5 (5.0-9.0); Specific Gravity - Urine <= 1.005 (1.005-1.025); Urine Blood Negative (Negative); Urine Ketones Negative (Negative); Urine Protein Negative (Neg-Trace)
[2024-06-21 00:45] LABS: Amphetamine Screen Urine Not Detected (Not Detect); Barbiturates, Urine Not Detected (Not Detect); Benzodiazepines Screen Urine Not Detected (Not Detect); Buprenorphine Scr Not Detected (Not Detect); Cannabinoid Screen Urine POSITIVE (Not Detect); Cocaine Screen Urine Not Detected (Not Detect); Fentanyl, urine Not Detected (Not Detect); Methadone Screen, Urine Not Detected (Not Detect); Opiate Screen Urine Not Detected (Not Detect); Oxycodone Screen Urine Not Detected (Not Detect); Phencyclidine Screen Urine Not Detected (Not Detect)
[2024-06-21 02:07] VITALS: BP 100/63; PULSE 80; RESP 17; TEMP 37.2; O2SAT 97
== END 2024-06-21 02:08 | disposition home or self-care (01) ==
PROVIDERS: Emergency Provider Emergency Medicine; PCP Internal Medicine
DX: G89.29 Other chronic pain (principal); R10.9 Unspecified abdominal pain; F12.90 Cannabis use, unspecified, uncomplicated; Z87.891 Personal history of nicotine dependence; Z79.899 Other long term (current) drug therapy
CPT/HCPCS: 36415; 74176; 80053; 80307; 81003; 83690; 84702; 85025; 99284

== ENCOUNTER 2024-08-21 22:05 | Emergency (ER) | payer MEDICARE, MEDICAID, SELFPAY ==
[2024-08-21 22:07] VITALS: BP 123/82; PULSE 85; RESP 18; TEMP 36.8; O2SAT 98; BMI 23.9
== END 2024-08-22 00:58 | disposition left against medical advice (07) ==
PROVIDERS: Emergency Provider Emergency Medicine; PCP Internal Medicine
DX: R06.02 Shortness of breath (principal); R21 Rash and other nonspecific skin eruption
CPT/HCPCS: 99281

== ENCOUNTER 2024-12-01 09:26 | Outpatient (AMB) | payer MEDICARE, MEDICAID, SELFPAY ==
[2024-12-01 09:47] VITALS: BP 100/60; PULSE 84; O2SAT 99; BMI 24.7
--- NOTE | 2024-12-01 09:47 | A.OFFPC_ITS ---
Vital Signs 12/01/24 09:47 Height 5 ft 6 in Weight 153 lb 2 oz BMI 24.7 BP 100/60 Blood Pressure Location Lt brachial Position Sitting Pulse 84 Pulse Source Pulse Oximeter Pulse Oximetry (%) 99 Oxygen Delivery Method Room Air Intake Visit Reasons: establish care/finger numb Clinical Trial Specialist Required: No Accompanied by: Self / Same As Patient Allergies amoxicillin Allergy (Intermediate, Verified 12/01/24 09:53) Rash Latex, Natural Rubber Allergy (Mild, Verified 12/01/24 09:48) rash Medication List - Last Reconciled 12/01/24 by BENNETT Zapata escitalopram oxalate 5 mg PO DAILY Tobacco use date assessed: 12/01/24 Dental Screening Dental Screen Date: 12/01/24 Did you have a dental visit in the last 12 months?: Yes Did you have a dental problem in the last 6 months where you did not have access to dental care?: No Was dental information given to patient?: Patient has dentist HPI establish care/finger numb HPI Details Previous PCP: Dr. 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 She reports that it resolved in half an hour, returned in both hands in her fingers has been pins and needles and an off will order some labs to evaluate Vertigo: Reports that she had vertigo 3 weeks ago that lasted for 1 week. Reports that she learned some exercised move Crystal's from the ear with positive results Reports that she is still feel lightheaded intermittently but has been hydrating poorly recently and this might be the reason Epigastric/left border chest: Reports that she gets the sharp pain with deep breathing, she also feels a pain in the left shoulder blade with deep breathing Reports that she thinks that it might be correlating with the stuff that she eats Patient reports that she has stopped taking her pantoprazole daily because the medication was causing her to be constipated Reports continuous eating of spicy foods and caffeine in the morning Discussed with patient the long-term effects on her esophagus The patient is willing to try famotidine. We will start her on famotidine 20 mg b.i.d. Reports that she gets the heartburn and epigastric pain intermittently but she decided that she rather to have diarrhea instead of constipation Right lower back: Patient reports right lower back pain that radiates into her buttocks down her right leg posteriorly just above her knee Reports that it was worked up before to make sure it was not a kidney issues which all came back negative We will send the patient to PT to evaluate and treat possible sciatica The patient requesting referral to optometry reports that her vision is not great and she is supposed to wear eyeglasses [facility] Medical History (Updated 12/01/24 @ 11:10 by BENNETT Zapata) Otero's esophagus Bipolar disorder Anxiety and depression Intestinal polyps Surgical History H/O tubal ligation Family History Maternal Grandmother Leukemia Maternal Grandfather Emphysema lung Paternal Grandmother Alcoholism Mother No problems noted. Father Substance abuse Maternal Uncle Myocardial infarct Social History Housing: Apartment Patient Tobacco Use Status: Former Tobacco user Tobacco use type: Cigarette e-Cigarette/Vaping Use: Never Used Second Hand Smoke Exposure: No Substance Use Type: Marijuana service: No Current occupational status: unemployed Cognitive needs: No Hearing needs: No Vision needs: Yes Questionnaire PHQ-9 Over the last 2 weeks, how often have you been bothered by any of the following problems? 1. Little interest or pleasure in doing things: more than half the days 2. Feeling down, depressed, or hopeless: more than half the days 3. Trouble falling or staying asleep, or sleeping too much: nearly every day 4. Feeling tired or having little energy: more than half the days 5. Poor appetite or overeating: nearly every day (pt states poor apeptite) 6. Feeling bad about yourself - or that you are a failure or have let yourself or your family down: nearly every day 7. Trouble concentrating on things, such as reading the newspaper or watching television: nearly every day 8. Moving or speaking so slowly that other people could have noticed. Or the opposite - being so fidgety or restless that you have been moving around a lot more than usual: nearly every day 9. Thoughts that you would be better off or of hurting yourself in some way: not at all Total score: 21 Depression Screening Interpretation: Positive Depression Screening Done: Yes 13927 - PHQ-9 Billing: Yes Source: Developed by Drs. Steven Mason, Gabby Mahajan, Daniel German and colleagues, with an educational cecil from [employer]. Thrive Questionnaire Date Thrive assessed: 12/01/24 I am a: Patient What is your living situation today?: I have a steady place to live Within the past 12 months, did the food you bought not last and you didn't have the money to get more?: Never true Within the past 12 months, did you worry whether your food would run out before you got money to buy more?: Never true Do you have trouble paying for medicines?: No Do you have trouble getting transportation to medical appointments?: No Do you have trouble paying your heating and electricity bill?: No Do you have trouble taking care of your child, family member or friend?: No Do you have trouble with day-to-day activities such as bathing, preparing meals, shopping, managing finances, etc.?: No Are you currently unemployed and looking for a job?: No Are you interested in more education?: No Please select the resources that you would like help with: None Currently or been in a relationship where the following occur: No concerns reported THRIVE Score: 0 AUDIT C Alcohol Use Questionnaire (AUDIT-C) 1. How often do you have a drink containing alcohol?: Never (quit 10/22/21) 2. How many drinks containing alcohol do you have on a typical day when you are drinking?: 1 or 2 3. How often do you have six or more drinks on one occasion?: Never Total Score: 0 Score Reviewed/Action Taken: No MEGAN-7 AMB Questionnaire MEGAN-7 Date MEGAN - 7 assessed: 12/01/24 Feeling nervous, anxious, or on edge: 3 = Nearly every day Not being able to stop or control worryin = Nearly every day Worrying too much about different things: 3 = Nearly every day Trouble relaxin = Nearly every day Being so restless that it is hard to sit still: 3 = Nearly every day Becoming easily annoyed or irritable: 3 = Nearly every day Feeling afraid as if something awful might happen: 3 = Nearly every day Total MEGAN-7 score (0-4 normal; 5-9 mild; 10-14 moderate; 15-21 severe): 21 Source: Developed by Drs. Steven Mason, Gabby Mahajan, Daniel German and colleagues, with an educational cecil from [employer]. MEGAN-7 Assessment Billing MEGAN-7 Assessment Tool: MEGAN-7 Assessment 94768 Review of Systems Const Details: Denies chills, Denies fatigue, Denies fever(s), Denies headache(s) and Denies weakness HEENT Denies change in vision, Denies dizziness, Denies headache(s), Denies hearing loss, Denies nasal congestion, Denies sinus pain, Denies sinus pressure and Denies sore throat Card + chest pain with deep breathing, Denies lightheadedness, Denies dyspnea and Denies other (palpitations) Resp Denies cough, Denies dyspnea and Denies wheezing GI + abdominal pain (epigatric region), Denies melena, Denies hematochezia, Denies change in bowel habits reports ongoing diarrhea and constipation intermittently, +dyspepsia and Denies nausea Denies hematuria and Denies dysuria Musc Denies abnormal gait, + myalgias right lower back radiates down right buttocks and right posterior thigh, right shoulder blader pain, + numbness and tingling in fingers intermittently Skin/Breast Denies rash, Denies unusual bruising and Denies wounds Neuro Denies abnormal gait, Denies dizziness, Denies headache(s), Denies memory loss, +numbness, Denies Sensory deficit (Neuro), + tingling and Denies weakness other: reports vertigo that resolved with exercise Psych Denies anxiety, Denies depression and Denies memory loss Endo Denies cold intolerance, Denies fatigue, Denies heat intolerance, Denies polydipsia and Denies polyuria Ankit/Lymph Denies easy bleeding and Denies easy bruising Aller/Immun Denies wheezing Physical exam (Primary Care) Vital Signs: Last Vital Signs Pulse 84 12/01/24 09:47 BP 100/60 12/01/24 09:47 Pulse Ox 99 12/01/24 09:47 Oxygen Delivery Method Room Air 12/01/24 09:47 BMI result Body Mass Index 24.7 Tobacco/Smoking Status: Tobacco use Status Tobacco use date assessed 12/01/24 12/01/24 09:52 Patient Tobacco Use Status Former Tobacco user 12/01/24 09:52 Tobacco use type Cigarette 12/01/24 09:52 e-Cigarette/Vaping Use Never Used 12/01/24 09:52 PHQ-9: PHQ-9 Score PHQ-9: Total score 21 12/01/24 11:03 Depression Screening Interpretation: Positive Thrive Assessment: Date of Thrive Assessment Date Thrive assessed 12/01/24 12/01/24 09:52 Currently or been in a relationship where the following occur: No concerns reported Const Other: General: no acute distress, well developed, alert and awake Nutritional Appearance: well nourished Orientation/consciousness: patient oriented x3 HENMT Head: Yes normocephalic and Yes atraumatic Ears: hearing grossly normal bilaterally and TM's normal bilaterally General nose exam: Normal external nose present and Normal nares present Mouth: Normal oral and palatal mucosa present and moist mucous membranes Eyes Pupils: Equal, round and reactive pupils present and Pupil accommodation reflex normal EOM: EOMs intact bilaterally Neck Neck: Yes normal visual inspection, Yes no lymphadenopathy and Yes trachea midline Thyroid: Thyroid normal Carotids: no bruits Lymphatic: no lymphadenopathy noted Chest Chest palpation & inspection: normal inspection of the chest Resp Effort & Inspection: normal respiratory effort Auscultation: clear to auscultation bilaterally Cardio Rate: regular rate Rhythm: regular rhythm Heart sounds: S1 normal heart sound present, S2 normal heart sound present, no gallops, no murmurs and no rubs Bruits: no abdominal aortic bruits and no carotid bruits GI Palpation (GI): Pain in epigastric region with palpation Auscultation: normal bowel sounds General: Yes no CVA tenderness Back/Spine/Pelvis Back: no CVA tenderness Cervical Spine: cervical ROM normal and No Cervical spine tenderness Thoracic/Lumbar Spine: thoraco-lumbar ROM normal, No pain with thoraco-lumbar ROM, No thoracic spinal tenderness and No lumbar spinal tenderness Skin General: warm and dry. Normal skin color. Normal skin turgor Lesions: no lesions Nails: normal Neuro General: patient oriented x3, gait normal Cranial nerves: Yes Equal, round and reactive pupils present Cognition (Neuro): normal cognition Gait exam (Neuro): Normal gait present Deep tendon reflexes (DTR's): Right patellar reflex intensity grade: 2+ and Left patellar reflex intensity grade: 2+ Extrem General: Yes normal to inspection, No edema and No calf tenderness Psych Appearance: grossly normal Affect: normal affect Attitude: cooperative Thought process: Normal thought process present Coding Level of Care Code New Pt Level 4 (61302) Diagnoses Finger numbness R20.0 Pain of back and right lower extremity M54.9; M79.604 Bipolar affective disorder, remission status unspecified F31.9 Active/Remission status: remission status unspecified Vitamin D deficiency E55.9 Anxiety and depression F41.9; F32.A Otero's esophagus with dysplasia K22.719 Otero's esophagus type: with dysplasia of unspecified degree Intercostal pain R07.82 Chest pain type: intercostal pain Additional Codes MEGAN-7 Assessment Billing - MEGAN-7 Assessment Tool: MEGAN-7 Assessment 67924 ([id number]) PHQ-9 - 83441 - PHQ-9 Billing: Yes ([id number]) Time Spent (min) 33 Assessment & Plan Assessment & Plan (1) Finger numbness: Code(s): R20.0 - Anesthesia of skin Category: Medical Plan: Negative Tinel and Phalen's test will order labs to further evaluate (2) Pain of back and right lower extremity: Code(s): M54.9 - Dorsalgia, unspecified; M79.604 - Pain in right leg Category: Medical Plan: PT referral placed (3) Bipolar disorder: Code(s): F31.9 - Bipolar disorder, unspecified Category: Medical Qualifiers: Active/Remission status: remission status unspecified Qualified Code(s): F31.9 - Bipolar disorder, unspecified Plan: Patient reports that she sees her therapist every week She is currently on escitalopram oxalate 5 mg daily Follow up with Psychiatry as scheduled (4) Vitamin D deficiency: Code(s): E55.9 - Vitamin D deficiency, unspecified Category: Medical Plan: Patient reports that she has not taken vitamin-D supplements that is ordered Reports that she is taking supplement that has vitamin-D in it OTC will recheck labs and advise (5) Anxiety and depression: Code(s): F41.9 - Anxiety disorder, unspecified; F32.A - Depression, unspecified Category: Medical Plan: Patient reports that she sees her therapist every week She is currently on escitalopram oxalate 5 mg daily Follow up with Psychiatry as scheduled (6) Otero's esophagus: Code(s): K22.70 - Otero's esophagus without dysplasia Category: Medical Qualifiers: Otero's esophagus type: with dysplasia of unspecified degree Qualified Code(s): K22.719 - Otero's esophagus with dysplasia, unspecified Plan: Patient has a history of Otero's esophagus Heartburn continues along with the epigastric pain intermittently Patient continues to have spicy food reports coffee in the mornings Patient reports stop taking pantoprazole due to constipation Discussed with patient about the long-term effects on her esophagus, she is willing to try famotidine. will start her on famotidine 20 mg b.i.d. Discussed with patient to follow up with GI (7) Chest pain: Code(s): R07.9 - Chest pain, unspecified Category: Medical Qualifiers: Chest pain type: intercostal pain Qualified Code(s): R07.82 - Intercostal pain Plan: Patient points to epigastric region. Reports pain with deep breathing, no red flags observed Suspected to be GERD related her costochondritis related. May use NSAIDs as needed Plan Patient to return in 2 weeks of physical labs ordered, will get labs completed before appointment Orders: Orders Vitamin D 25-OH Total Today E55.9 - Vitamin D deficiency, unspecified, F31.9 - Bipolar disorder, unspecified, F32.A - Depression, unspecified, F41.9 - Anxiety disorder, unspecified, R10.9 - Unspecified abdominal pain, R20.0 - Anesthesia of skin, R42 - Dizziness and giddiness Vitamin B12 and Folate Today E55.9 - Vitamin D deficiency, unspecified, F31.9 - Bipolar disorder, unspecified, F32.A - Depression, unspecified, F41.9 - Anxiety disorder, unspecified, R10.9 - Unspecified abdominal pain, R20.0 - Anesthesia of skin, R42 - Dizziness and giddiness Glucose Fasting Today E55.9 - Vitamin D deficiency, unspecified, F31.9 - Bipolar disorder, unspecified, F32.A - Depression, unspecified, F41.9 - Anxiety disorder, unspecified, R10.9 - Unspecified abdominal pain, R20.0 - Anesthesia of skin, R42 - Dizziness and giddiness PT Evaluation and Treatment Today M54.9 - Dorsalgia, unspecified, M79.604 - Pain in right leg Complete Blood Count Auto Diff Today E55.9 - Vitamin D deficiency, unspecified, F31.9 - Bipolar disorder, unspecified, F32.A - Depression, unspecified, F41.9 - Anxiety disorder, unspecified, R10.9 - Unspecified abdominal pain, R20.0 - Anesthesia of skin, R42 - Dizziness and giddiness Comprehensive [place]. Panel Fast Today E55.9 - Vitamin D deficiency, unspecified, F31.9 - Bipolar disorder, unspecified, F32.A - Depression, unspecified, F41.9 - Anxiety disorder, unspecified, R10.9 - Unspecified abdominal pain, R20.0 - Anesthesia of skin, R42 - Dizziness and giddiness Lipid Panel Today E55.9 - Vitamin D deficiency, unspecified, F31.9 - Bipolar disorder, unspecified, F32.A - Depression, unspecified, F41.9 - Anxiety disorder, unspecified, R10.9 - Unspecified abdominal pain, R20.0 - Anesthesia of skin, R42 - Dizziness and giddiness TSH reflex Free T4 Today E55.9 - Vitamin D deficiency, unspecified, F31.9 - Bipolar disorder, unspecified, F32.A - Depression, unspecified, F41.9 - Anxiety disorder, unspecified, R10.9 - Unspecified abdominal pain, R20.0 - Anesthesia of skin, R42 - Dizziness and giddiness Magnesium Today E55.9 - Vitamin D deficiency, unspecified, F31.9 - Bipolar disorder, unspecified, F32.A - Depression, unspecified, F41.9 - Anxiety disorder, unspecified, R10.9 - Unspecified abdominal pain, R20.0 - Anesthesia of skin, R42 - Dizziness and giddiness UA CC w/rflx Micro + Cult Today E55.9 - Vitamin D deficiency, unspecified, F31.9 - Bipolar disorder, unspecified, F32.A - Depression, unspecified, F41.9 - Anxiety disorder, unspecified, R10.9 - Unspecified abdominal pain, R20.0 - Anesthesia of skin, R42 - Dizziness and giddiness Referrals Optometry Referral H54.3 - Unqualified visual loss, both eyes [employer]ER Referral Z12.4 - Encounter for screening for malignant neoplasm of cervix Medications: New famotidine 20 mg PO BID 60 tabs 1RF
== END 2024-12-01 10:35 | disposition home or self-care (01) ==
PROVIDERS: PCP Internal Medicine
DX: R20.0 Anesthesia of skin (principal); M54.9 Dorsalgia, unspecified; M79.604 Pain in right leg; F31.9 Bipolar disorder, unspecified; E55.9 Vitamin D deficiency, unspecified; F41.9 Anxiety disorder, unspecified; K22.719 Barrett's esophagus with dysplasia, unspecified; R07.82 Intercostal pain

== ENCOUNTER → 2024-12-01 09:26 | Outpatient (BNVA) | payer MEDICARE, MEDICAID, SELFPAY | PROVIDERS: PCP Internal Medicine | DX: R20.0 Anesthesia of skin (principal); M54.9 Dorsalgia, unspecified; M79.604 Pain in right leg; E55.9 Vitamin D deficiency, unspecified; F41.9 Anxiety disorder, unspecified; F32.A Depression, unspecified; K22.719 Barrett's esophagus with dysplasia, unspecified; R07.82 Intercostal pain | CPT/HCPCS: 96127; 99202 ==

== ENCOUNTER 2024-12-02 08:17 | Outpatient (REF) | payer MEDICARE, MEDICAID, SELFPAY ==
[2024-12-02 08:33] LABS: MANUAL DIFF FLAG NO
[2024-12-02 08:43] LABS: Basophils Percent Auto 0.9 % (0-2); Eosinophils Absolute Auto 0.1 X10*3/uL (0.0-0.4); Eosinophils Percent Auto 1.7 % (0-4); Hematocrit 37.4 % (37.0-47.0); Hemoglobin 12.6 g/dl (12.0-16.0); Imm Gran Abs Auto 0.01 X10*3/uL (0.00-0.03); Imm Gran Pct Auto 0.2 % (0.0-0.4); Lymphocytes Absolute Auto 1.9 X10*3/uL (1.2-4.9); Lymphocytes Percent Auto 41.1 % (20-40); Mean Corpuscular HGB Conc 33.7 g/dl (31.0-35.0); Mean Corpuscular Hemoglobin 29.4 pg (27.0-33.0); Mean Corpuscular Volume 87.4 fL (80.0-98.0); Mean Platelet Volume 9.9 fL (9.4-12.3); Monocytes Absolute Auto 0.4 X10*3/uL (0.1-1.2); Monocytes Percent Auto 9.2 % (2-11); Neutrophils Absolute Auto 2.2 x10*3/uL (2.0-8.3); Neutrophils Percent Auto 46.9 % (45-73); Platelet Count 257 X10*3/uL (160-400); Red Blood Count 4.28 X10*6/uL (4.20-5.50); Red Cell Distribution Width 13.5 % (11.0-16.0); White Blood Count 4.7 X10*3/uL (4.8-10.8)
[2024-12-02 09:12] LABS: Anion Gap 10 (12-20)
[2024-12-02 09:19] LABS: Alanine Aminotransferase 28 U/L (0-31); Albumin Level 4.1 g/dL (3.5-5.0); Aspartate Amino Transferase 29 U/L (5-31); Bilirubin Total 0.5 mg/dL (0.0-1.0); Blood Urea Nitrogen 12 mg/dL (9-16); Calcium 9.1 mg/dL (8.4-10.2); Carbon Dioxide 25 mmol/L (22-29); Chloride 110 mmol/L (96-108); Cholesterol 180 mg/dL (<200); Estimated Glomerular Filt Rate > 60; Glucose Fasting 99 mg/dL (60-99); HDL Cholesterol 62 mg/dL (>40); LDL Cholesterol Calculated 109 mg/dL (<100); Magnesium 1.8 mg/dL (1.6-2.6); Potassium 4.1 mmol/L (3.3-5.1); Sodium 141 mmol/L (135-145); Triglycerides 45 mg/dL (<150)
[2024-12-02 09:37] LABS: Alkaline Phosphatase 36 U/L (39-117)
[2024-12-02 09:46] LABS: TSH reflex Free T4 2.13 uIU/mL (0.32-4.0); Vitamin D 25-OH Total 40.6 ng/mL (>30)
[2024-12-02 10:05] LABS: Folate 17.3 ng/mL (> or = 4.0); Vitamin B12 438 pg/mL (200-900)
[2024-12-02 12:02] LABS: Appearance Urine Clear; Color Urine Yellow; Glucose Urine UA Negative (Negative); Leukocyte Esterase Urine Negative (Negative); Nitrite Urine Negative (Negative); PH 6.5 (5.0-9.0); Specific Gravity - Urine <= 1.005 (1.005-1.025); Urine Blood Negative (Negative); Urine Ketones Negative (Negative); Urine Protein Negative (Neg-Trace)
== END 2024-12-02 08:18 | disposition home or self-care (01) ==
LOC: HO.LAB 08:17
PROVIDERS: PCP Internal Medicine
DX: R20.0 Anesthesia of skin (principal); E55.9 Vitamin D deficiency, unspecified; R42 Dizziness and giddiness; F41.9 Anxiety disorder, unspecified; F31.9 Bipolar disorder, unspecified; R10.9 Unspecified abdominal pain; Z13.6 Encounter for screening for cardiovascular disorders
CPT/HCPCS: 36415; 80053; 80061; 81003; 82306; 82607; 82746; 83735; 84443; 85025

== ENCOUNTER 2024-12-15 08:22 | Outpatient (AMB) | payer MEDICARE, MEDICAID, SELFPAY ==
--- NOTE | 2024-12-15 08:24 | MHC.PC.OV ---
Vital Signs 12/15/24 08:26 Height 5 ft 6 in Weight 154 lb 8 oz BMI 24.9 BP 110/60 Blood Pressure Location Lt brachial Position Sitting Pulse 100 Pulse Source Pulse Oximeter Temp 96.2 F L Temp Source Temporal Artery Scan Pulse Oximetry (%) 98 Oxygen Delivery Method Room Air Intake Visit Reasons: pe Intake Note: Patient is here today for a physical. Rn Residential Required: No Uniform Force Captain: Not Required per policy Accompanied by: Self / Same As Patient Allergies amoxicillin Allergy (Intermediate, Verified 12/15/24 08:36) Rash famotidine Allergy (Intermediate, Verified 12/15/24 08:36) Chest Pain Latex, Natural Rubber Allergy (Mild, Verified 12/15/24 08:36) rash Medication List - Last Reconciled 12/15/24 by BENNETT Zapata escitalopram oxalate 5 mg PO DAILY Tobacco use date assessed: 12/15/24 Dental Screening Dental Screen Date: 12/01/24 HPI pe HPI Details Dentist: up to date Eye: appt will be seeing the optometry in january 09 Snellen: Right: Left: Corrected vision: Reports that she is supposed to wear glasses STI screening: Colonoscopy: 01/29/2024 Pap Smer: january 14, reports that she has not been seen for 4 years PHQ-9: Flu: declines COVID: x2 only Tdap: Given in office today Diet: regular diet, but she has been cutting out things that aggravating her stomach. Patient reports that she is eating to much sugar, diary and gluten Exercise: Not at the moment Patient is a 39-year-old female who is presenting for physical Reviewed preventative guidelines and recent labs with patient On the patient recent appointment famotidine 20 mg b.i.d. was ordered for ongoing heartburn Patient reports that she was unable to tolerate the medication and felt like the medication with causing her more stomach pain Reports that she has stopped taking the medication couple days after starting it The patient reports that she think that she is approaching early menopause She reports that she has not missed her but they has been shorter (lasting 3 days instead of 5) The patient reports that she continues to see her therapist every On previous visit, couple referrals were placed: Reports that she has an appointment with PT on December 26, 2024 Appointment with optometry January 09, 2025 Appointment with OBGYN January 14, 2025 [facility] Medical History (Updated 12/15/24 @ 09:30 by BENNETT Zapata) Otero's esophagus Bipolar disorder Anxiety and depression Intestinal polyps Surgical History H/O tubal ligation Family History Maternal Grandmother Leukemia Maternal Grandfather Emphysema lung Paternal Grandmother Alcoholism Mother No problems noted. Father Substance abuse Maternal Uncle Myocardial infarct Social History Housing: Apartment Patient Tobacco Use Status: Former Tobacco user Tobacco use type: Cigarette e-Cigarette/Vaping Use: Never Used Second Hand Smoke Exposure: Yes Substance Use Type: Marijuana service: No Current occupational status: unemployed Cognitive needs: No Hearing needs: No Vision needs: Yes Questionnaire PHQ-9 Over the last 2 weeks, how often have you been bothered by any of the following problems? 1. Little interest or pleasure in doing things: nearly every day 2. Feeling down, depressed, or hopeless: nearly every day 3. Trouble falling or staying asleep, or sleeping too much: nearly every day 4. Feeling tired or having little energy: nearly every day 5. Poor appetite or overeating: nearly every day 6. Feeling bad about yourself - or that you are a failure or have let yourself or your family down: more than half the days 7. Trouble concentrating on things, such as reading the newspaper or watching television: nearly every day 8. Moving or speaking so slowly that other people could have noticed. Or the opposite - being so fidgety or restless that you have been moving around a lot more than usual: nearly every day 9. Thoughts that you would be better off or of hurting yourself in some way: more than half the days Total score: 25 Depression Screening Interpretation: Positive Depression Screening Done: Yes Source: Developed by Drs. Steven Mason, Gabby Mahajan, Daniel German and colleagues, with an educational cecil from [employer]. Thrive Questionnaire Date Thrive assessed: 12/08/24 I am a: Patient What is your living situation today?: I choose not to answer this question Within the past 12 months, did the food you bought not last and you didn't have the money to get more?: I choose not to answer this question Within the past 12 months, did you worry whether your food would run out before you got money to buy more?: Sometimes True Do you have trouble paying for medicines?: Yes Do you have trouble getting transportation to medical appointments?: Yes Do you have trouble paying your heating and electricity bill?: I choose not to answer this question Do you have trouble taking care of your child, family member or friend?: No Do you have trouble with day-to-day activities such as bathing, preparing meals, shopping, managing finances, etc.?: Yes Are you currently unemployed and looking for a job?: No Are you interested in more education?: Yes Please select the resources that you would like help with: None Currently or been in a relationship where the following occur: No concerns reported THRIVE Score: 2 AUDIT C Alcohol Use Questionnaire (AUDIT-C) 1. How often do you have a drink containing alcohol?: Never 3. How often do you have six or more drinks on one occasion?: Never Total Score: 0 MEGAN-7 AMB Questionnaire MEGAN-7 Date MEGAN - 7 assessed: 12/01/24 Feeling nervous, anxious, or on edge: 3 = Nearly every day Not being able to stop or control worryin = More than half the days Worrying too much about different things: 3 = Nearly every day Trouble relaxin = More than half the days Being so restless that it is hard to sit still: 1 = Several days Becoming easily annoyed or irritable: 2 = More than half the days Feeling afraid as if something awful might happen: 2 = More than half the days Total MEGAN-7 score (0-4 normal; 5-9 mild; 10-14 moderate; 15-21 severe): 15 Source: Developed by Drs. Steven Mason, Gabby Mahajan, Daniel German and colleagues, with an educational cecil from [employer]. Review of Systems Const Details: Denies chills, Denies fatigue, Denies fever(s), Denies headache(s) and Denies weakness HEENT Denies change in vision, +dizziness, Denies headache(s), Denies hearing loss, Denies nasal congestion, Denies sinus pain, Denies sinus pressure and Denies sore throat Card +chest pain on and off (consistent with ongoing GERD), Denies lightheadedness, Denies dyspnea and Denies other (palpitations) Resp Denies cough, Denies dyspnea and Denies wheezing GI Denies abdominal pain, Denies melena, Denies hematochezia, + dyspepsia and + nausea, no vomiting, denies blood in the stool, fluctuates brown diarrhea or constipation Denies hematuria and Denies dysuria Musc Denies abnormal gait, reports ongoing lower back pain, Denies numbness and Denies tingling Skin/Breast Denies rash, Denies unusual bruising and Denies wounds Neuro Denies abnormal gait, Denies dizziness, Denies headache(s), Denies memory loss, Denies numbness, Denies Sensory deficit (Neuro), Denies tingling and Denies weakness Psych + anxiety, +depression and Denies memory loss Endo Denies cold intolerance, Denies fatigue, Denies heat intolerance, Denies polydipsia and Denies polyuria Ankit/Lymph Denies easy bleeding and Denies easy bruising Aller/Immun Denies wheezing Physical exam (Primary Care) Vital Signs: Last Vital Signs Temp 96.2 F L 12/15/24 08:26 Pulse 100 12/15/24 08:26 BP 110/60 12/15/24 08:26 Pulse Ox 98 12/15/24 08:26 Oxygen Delivery Method Room Air 12/15/24 08:26 BMI result Body Mass Index 24.9 Tobacco/Smoking Status: Tobacco use Status Tobacco use date assessed 12/15/24 12/15/24 08:34 Patient Tobacco Use Status Former Tobacco user 12/15/24 08:34 Tobacco use type Cigarette 12/15/24 08:34 e-Cigarette/Vaping Use Never Used 12/15/24 08:34 PHQ-9: PHQ-9 Score PHQ-9: Total score 12/15/24 10:13 Depression Screening Interpretation: Positive Thrive Assessment: Date of Thrive Assessment Date Thrive assessed 12/08/24 12/15/24 08:34 Currently or been in a relationship where the following occur: No concerns reported Const Other: General: no acute distress, well developed, alert and awake Nutritional Appearance: well nourished Orientation/consciousness: patient oriented x3 HENMT Head: Yes normocephalic and Yes atraumatic Ears: hearing grossly normal bilaterally and TM's normal bilaterally General nose exam: Normal external nose present and Normal nares present Mouth: Normal oral and palatal mucosa present and moist mucous membranes Teeth and gingiva: dentition normal Throat: Yes oropharynx normal Eyes Pupils: Equal, round and reactive pupils present and Pupil accommodation reflex normal EOM: EOMs intact bilaterally Neck Neck: Yes normal visual inspection, Yes no lymphadenopathy and Yes trachea midline Thyroid: Thyroid normal Carotids: no bruits Lymphatic: no lymphadenopathy noted Chest Chest palpation & inspection: normal inspection of the chest Resp Effort & Inspection: normal respiratory effort Auscultation: clear to auscultation bilaterally Cardio Rate: regular rate Rhythm: regular rhythm Heart sounds: S1 normal heart sound present, S2 normal heart sound present, no gallops, no murmurs and no rubs Bruits: no abdominal aortic bruits and no carotid bruits GI Palpation (GI): No Abdominal aortic bruit present, Soft to palpation, nontender, No hepatosplenomegaly present and No Rebound tenderness present Auscultation: normal bowel sounds General: Yes no CVA tenderness Back/Spine/Pelvis Back: no CVA tenderness Cervical Spine: cervical ROM normal and No Cervical spine tenderness Thoracic/Lumbar Spine: thoraco-lumbar ROM normal, No pain with thoraco-lumbar ROM, No thoracic spinal tenderness and No lumbar spinal tenderness SLR to 90 degrees on both sides -right lower back with some stiffness with right leg raise Skin General: warm and dry. Normal skin color. Normal skin turgor Lesions: no lesions Rashes: no rashes Trauma: no lacerations or abrasions Wounds: no wounds Nails: normal Neuro General: patient oriented x3, gait normal and CN's II-XI intact bilaterally Cranial nerves: Yes Equal, round and reactive pupils present Cognition (Neuro): normal cognition Gait exam (Neuro): Normal gait present Motor exam (neuro): 5/5 motor strength present throughout Sensory Exam: No Sensory deficit (Neuro) Deep tendon reflexes (DTR's): Right patellar reflex intensity grade: 2+ and Left patellar reflex intensity grade: 2+ Extrem General: Yes normal to inspection, No edema and No calf tenderness Psych Appearance: grossly normal Affect: normal affect Attitude: cooperative Thought process: Normal thought process present Immunizations Boostrix Tdap 2.5 Lf unit-8 mcg-5 Lf/0.5 mL intramuscular syringe Performing Provider: BENNETT Zapata [place]forming Location[place] [facility] Administered by: ALIYAH Terrell on 12/15/24 10:13 Dose Route Admin Location Dispensed Lot Number Expiration Date NDC Adjuster Leader 0.5 mL IM Right Deltoid 0.5 mL [id number] 01/10/27 [id number] [employer] VIS Given Date VIS Provided VIS Publication Date 12/15/24 Single Vaccine 21 Eligibility Eligibility Date Funding Source Not [facility] Eligible 12/15/24 Private Results Reviewed Results Reviewed: Laboratory Tests 12/02/24 12/02/24 08:32 09:45 WBC 4.7 L RBC 4.28 Hgb 12.6 Hct 37.4 Plt Count 257 Sodium 141 Potassium 4.1 Chloride 110 H Carbon Dioxide 25 BUN 12 Creatinine 0.69 Estimated GFR > 60 Fasting Glucose 99 Magnesium 1.8 AST 29 ALT 28 Alkaline Phosphatase 36 L Triglycerides 45 Cholesterol 180 LDL Cholesterol, Calc 109 H HDL Cholesterol 62 Vitamin B12 438 25-OH Vitamin D Total 40.6 Folate 17.3 TSH 2.13 Urine Color Yellow Urine Appearance Clear Urine pH 6.5 Ur Specific [place] <= 1.005 Urine Protein Negative Urine Glucose (UA) Negative Urine Ketones Negative Urine Blood Negative Urine Nitrite Negative Ur Leukocyte Esterase Negative Coding Level of Care Code Est Pt Level 4 (14740) Diagnoses Annual physical exam Z00.00 Finger numbness R20.0 Pain of back and right lower extremity M54.9; M79.604 Bipolar affective disorder, remission status unspecified F31.9 Active/Remission status: remission status unspecified Vitamin D deficiency E55.9 Anxiety and depression F41.9; F32.A Otero's esophagus with dysplasia K22.719 Otero's esophagus type: with dysplasia of unspecified degree Intercostal pain R07.82 Chest pain type: intercostal pain Elevated LDL cholesterol level E78.00 Dizziness R42 Time Spent (min) 35 Assessment & Plan Assessment & Plan (1) Annual physical exam: Code(s): Z00.00 - Encounter for general adult medical examination without abnormal findings Category: Medical Plan: Preventive guidelines and recent labs were reviewed with patient (2) Finger numbness: Code(s): R20.0 - Anesthesia of skin Category: Medical Plan: Negative Tinel and Phalen's test All blood works wnl Will continue to monitor (3) Pain of back and right lower extremity: Code(s): M54.9 - Dorsalgia, unspecified; M79.604 - Pain in right leg Category: Medical Plan: Continue modified activity as tolerated Upcoming PT appointment (4) Bipolar disorder: Code(s): F31.9 - Bipolar disorder, unspecified Category: Medical Qualifiers: Active/Remission status: remission status unspecified Qualified Code(s): F31.9 - Bipolar disorder, unspecified Plan: Patient reports that she sees her therapist every week She is currently on escitalopram oxalate 5 mg daily Denies SI/HI Follow up with Psychiatry as scheduled (5) Vitamin D deficiency: Code(s): E55.9 - Vitamin D deficiency, unspecified Category: Medical Plan: Patient reports that she has not taken vitamin-D supplements that is ordered Reports that she is taking supplement that has vitamin-D in it OTC Vitamin-D levels within normal Continue vitamin-D OTC (6) Anxiety and depression: Code(s): F41.9 - Anxiety disorder, unspecified; F32.A - Depression, unspecified Category: Medical Plan: Patient reports that she sees her therapist every week She is currently on escitalopram oxalate 5 mg daily Denies SI/HI Follow up with Psychiatry as scheduled (7) Otero's esophagus: Code(s): K22.70 - Otero's esophagus without dysplasia Category: Medical Qualifiers: Otero's esophagus type: with dysplasia of unspecified degree Qualified Code(s): K22.719 - Otero's esophagus with dysplasia, unspecified Plan: Patient has a history of Otero's esophagus Heartburn continues along with the epigastric pain intermittently Patient continues to have spicy food reports coffee in the mornings Patient reports stop taking pantoprazole due to constipation Discussed with patient about the long-term effects on her esophagus, she is willing to try famotidine. The patient was started on famotidine 20 mg b.i.d. Reports that she stopped taking the medication couple days after starting the therapy due to increase stomach pain Discussed with patient to follow up with GI (8) Chest pain: Code(s): R07.9 - Chest pain, unspecified Category: Medical Qualifiers: Chest pain type: intercostal pain Qualified Code(s): R07.82 - Intercostal pain Plan: Patient points to epigastric region. Reports pain with deep breathing, no red flags observed Suspected to be GERD related her costochondritis related. May use NSAIDs as needed (9) Elevated LDL cholesterol level: Code(s): E78.00 - Pure hypercholesterolemia, unspecified Category: Medical Plan: LDL 109-patient reports that she has has been eating a lot of pizza Reinforced low cholesterol diet We will recheck lab in 3 months (10) Dizziness: Code(s): R42 - Dizziness and giddiness Category: Medical Plan: Patient reports getting dizzy on and off. She as gotten multiple cardiac workup with a negative findings This is most likely due to patient eating habits-she reports that eating for long periods in between We will continue to monitor Plan Patient to return in 3 months for follow up for GERD and elevated LDL Orders: Orders TDaP Immunization Today Z23 - Encounter for immunization Lipid Panel 3 Months E78.00 - Pure hypercholesterolemia, unspecified, K22.719 - Otero's esophagus with dysplasia, unspecified
[2024-12-15 08:26] VITALS: BP 110/60; PULSE 100; TEMP 35.7; O2SAT 98; BMI 24.9
== END 2024-12-15 09:19 | disposition home or self-care (01) ==
DX: Z00.00 Encounter for general adult medical examination without abnormal findings (principal); R20.0 Anesthesia of skin; M54.9 Dorsalgia, unspecified; M79.604 Pain in right leg; F31.9 Bipolar disorder, unspecified; E55.9 Vitamin D deficiency, unspecified; F41.9 Anxiety disorder, unspecified; F32.A Depression, unspecified; K22.719 Barrett's esophagus with dysplasia, unspecified; R07.82 Intercostal pain; E78.00 Pure hypercholesterolemia, unspecified; R42 Dizziness and giddiness; Z23 Encounter for immunization

== ENCOUNTER → 2024-12-15 08:22 | Outpatient (BNVA) | payer MEDICARE, MEDICAID, SELFPAY | DX: Z00.00 Encounter for general adult medical examination without abnormal findings (principal); Z23 Encounter for immunization; R20.0 Anesthesia of skin; M54.9 Dorsalgia, unspecified; M79.604 Pain in right leg; E55.9 Vitamin D deficiency, unspecified; F41.9 Anxiety disorder, unspecified; F32.A Depression, unspecified; K22.719 Barrett's esophagus with dysplasia, unspecified; R07.82 Intercostal pain; E78.00 Pure hypercholesterolemia, unspecified; R42 Dizziness and giddiness | CPT/HCPCS: 90471; 90715; 99212 ==

== ENCOUNTER 2025-01-14 13:42 | Outpatient (AMB) | payer MEDICARE, MEDICAID, SELFPAY ==
--- NOTE | 2025-01-14 13:44 | MHC.OFFVIS ---
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 Land Title Examiner Required: No Land Title Examiner Services: Land Title Examiner Present Information Interpreted: clinical only Asbestos Hazard Abatement Worker: Asbestos Hazard Abatement Worker Present Allergies amoxicillin Allergy (Intermediate, Verified 01/14/25 13:50) Rash famotidine Allergy (Intermediate, Verified 01/14/25 13:50) Chest Pain Latex, Natural Rubber Allergy (Mild, Verified 01/14/25 13:50) rash Medication List - Last Reconciled 01/14/25 by Alice Bob CNM magnesium 200 mg PO DAILY Is last menstrual period known: Yes Last menstrual period: 12/24/24 HPI HPI GRIP 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 She had her tubes removed for permanent control some years ago. She gets regular cycles She is experiencing frank menopausal symptoms with hot flashes and hormonal changes and mood shifts and is trying to figure out what is frank menopausal in what is other symptoms She has never had a mammogram She is in a committed relationship they moved out here together from [place] 3 years ago. 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 Partner is a master automotive glass technician [facility] Medical History Otero's esophagus Bipolar disorder Anxiety and depression Intestinal polyps Surgical History H/O tubal ligation Family History Maternal Grandmother Leukemia Maternal Grandfather Emphysema lung Paternal Grandmother Alcoholism Mother No problems noted. Father Substance abuse Maternal Uncle Myocardial infarct Social History Housing: Apartment Patient Tobacco Use Status: Former Tobacco user Tobacco use type: Cigarette e-Cigarette/Vaping Use: Never Used Second Hand Smoke Exposure: Yes Substance Use Type: Marijuana service: No Current occupational status: unemployed Cognitive needs: No Hearing needs: No Vision needs: Yes Female Reproductive History Menstrual Age of Menarche: 10 Duration of menses: 3-5 days Date of last menstrual period: 12/24/24 Total pregnancies: 0 Full term: 0 History of abnormal pap smear: No (2020 neg.per patient) Physical Exam Vital Signs: Last Vital Signs BP 112/68 01/14/25 13:49 BMI result Body Mass Index 25.7 Const General: healthy appearing, comfortable, no acute distress, well developed and alert Nutritional Appearance: average body habitus Orientation/consciousness: patient oriented x3 Limitations: no limitations HEENT Head: Yes normocephalic Neck Neck: Yes normal visual inspection Chest Chest palpation & inspection: normal inspection of the chest Breast/axilla inspection: normal inspection of the breasts and normal inspection of the axillae Breast/axilla palpation: normal palpation of the breasts and normal palpation of the axillae Resp Effort & Inspection: normal respiratory effort GI Inspection: Yes normal to inspection, No Abdominal wall edema and No distended Palpation (GI): Soft to palpation and nontender Other: Normal external exam some thinning of the vaginal/labial mucosa/ structures consistent with premenopausal changes. Vagina pink and moist nulliparous cervix pink smooth healthy appearing with scant white discharge consistent with luteal phase cervix and uterus mobile nontender midposition deep in pelvis difficult to palpate entire uterus but nontender mobile adnexa nontender and mobile. Good tone with Kegel. General: Yes bladder normal to palpation External Female Exam: normal external appearance and normal appearance of the urethra Speculum Exam - Vagina: normal appearance of the vagina, normal palpation and normal vaginal discharge Speculum Exam - Cervix: normal appearance of the cervix, normal palpation and nontender Bimanual exam- vagina & uterus: normal bimanual exam, normal palpation, uterine size normal, bladder normal to palpation, consistency normal, normal palpation, uterine mobility normal, uterine shape normal, No Cervical tenderness present, non-tender and no cervical motion tenderness Bimanual Exam- Adnexa, other: normal adnexae, no masses, normal and No adnexal tenderness Neuro General: patient oriented x3 Assessment & Plan Assessment & Plan (1) Cervical cancer screening: Code(s): Z12.4 - Encounter for screening for malignant neoplasm of cervix Category: Medical (2) Breast cancer screening: Code(s): Z12.39 - Encounter for other screening for malignant neoplasm of breast Category: Medical (3) Well woman exam with routine gynecological exam: Code(s): Z01.419 - Encounter for gynecological examination (general) (routine) without abnormal findings Category: Medical (4) Pelvic pain: Code(s): R10.2 - Pelvic and perineal pain Category: Medical (5) Perimenopausal symptoms: Code(s): N95.1 - Menopausal and female climacteric states Category: Medical Plan -----Discussed in this visit the following: healthy balanced diet, regular and consistent exercise, getting recommended health screens, doing the best she can for her particular health concerns, kegel exercises, pap smear screening and followup recommendations, mammography screening and SBE, normal changes in cycles in her life stage--- .This note is constructed using voice recognition software. While every effort has been made to ensure accuracy, tents assembler errors may have been included. Particular some pain that feels like it goes from the front back right lower abdomen and extends to her lower back kind of comes and goes there maybe some cyclicity to it but she is not sure I asked her to track of when she experiences that being discussed discomfort that many women feel with ovulation and that can contain due until onset of the menses and changes that have gone on in the ovary to bring this on. She was wondering if it might have something to do with her bilateral salpingectomy and that is difficult to say. I am ordering a pelvic ultrasound and she should keep track of where she is in her cycle in terms of when she has the ultrasound it is possible it might show something if it is in the 2nd half her cycle the it will be whenever she is scheduled and we will have a visit after to review and think about that. She is interested. in [facility] blood work l STIs l g. She is on the portal so gain access to her results way. I told her would call her for positive results. I am ordering an screening mammogram for her and recommend that she schedule that for soon after her periods so her breasts are not so tender. Discussed normal hillary in the vagina and changes throughout the cycle and bacterial vaginosis and and they often show up on test results if there is no symptoms and do not need to be treated unless there symptomatic. She is currently going to PT for her back and working on her core. Orders: Orders MM tomosynthesis screening BI Today R10.2 - Pelvic and perineal pain, Z01.419 - Encounter for gynecological examination (general) (routine) without abnormal findings, Z12.31 - Encounter for screening mammogram for malignant neoplasm of breast, Z12.39 - Encounter for other screening for malignant neoplasm of breast, Z12.4 - Encounter for screening for malignant neoplasm of cervix Coding Level of Care Code New Pt Prev Care 40-64y(69855) Diagnoses Cervical cancer screening Z12.4 Breast cancer screening Z12.39 Well woman exam with routine gynecological exam Z01.419 Pelvic pain R10.2 Perimenopausal symptoms N95.1
[2025-01-14 13:49] VITALS: BP 112/68; BMI 25.7
== END 2025-01-14 15:28 | disposition home or self-care (01) ==
LOC: HO.HWSM 13:43
PROVIDERS: PCP Internal Medicine; Visit Provider Advanced Practice Midwife
DX: Z01.419 Encounter for gynecological examination (general) (routine) without abnormal findings (principal); N95.1 Menopausal and female climacteric states
CPT/HCPCS: G0101; Q0091

== ENCOUNTER 2025-01-14 13:42 | Outpatient (REF) | payer MEDICARE, MEDICAID, SELFPAY ==
[2025-01-14 21:33] LABS: Bacterial Vaginosis PCR POSITIVE (Negative); Candida Group PCR NOT DETECTED (Not Detect); Candida glab krusei PCR NOT DETECTED (Not Detect); Trichomonas vaginalis PCR NOT DETECTED (Not Detect)
[2025-01-14 21:54] LABS: CT PCR NOT DETECTED (Not Detect.); NG PCR NOT DETECTED (Not Detect.)
[2025-01-21 11:58] LABS: HPV Genotype 16 Negative (Negative); HPV Genotype 18 Negative (Negative); HPV High Risk Negative (Negative)
== END 2025-01-14 13:43 | disposition home or self-care (01) ==
LOC: HO.LNP 13:42
PROVIDERS: PCP Internal Medicine; Visit Provider Advanced Practice Midwife
DX: Z01.419 Encounter for gynecological examination (general) (routine) without abnormal findings (principal); N89.8 Other specified noninflammatory disorders of vagina; Z20.2 Contact with and (suspected) exposure to infections with a predominantly sexual mode of transmission
CPT/HCPCS: 81515; 87491; 87591; 87626; 88175; G0101; Q0091

== ENCOUNTER 2025-01-14 14:50 | Outpatient (REF) | payer MEDICARE, MEDICAID, SELFPAY | END 2025-01-14 14:51 | disposition home or self-care (01) | LOC: HO.LAB 14:50 | PROVIDERS: Visit Provider Advanced Practice Midwife | DX: Z13.89 Encounter for screening for other disorder (principal) ==

== ENCOUNTER 2025-01-14 14:56 | Outpatient (REF) | payer MEDICARE, MEDICAID, SELFPAY | END 2025-01-14 14:57 | disposition home or self-care (01) | LOC: HO.HHCL 14:56 | PROVIDERS: Visit Provider Advanced Practice Midwife | DX: Z13.89 Encounter for screening for other disorder (principal) ==

== ENCOUNTER 2025-01-21 10:50 | Outpatient (RCR) | payer MEDICARE, MEDICAID, SELFPAY ==
--- NOTE | 2024-12-26 11:25 | MHC.PT.EP ---
[facility] [place] Office [place] Office [place] Office [address] Hank Velasquez [address] [phone] F: [phone] F: [phone] F: [phone] F: [phone] Physical Therapy Plan of Care Date of Evaluation: 12/26/24 Date of Surgery: Diagnosis: dorsalgia Pain in R leg Assessment: 39 y/o female referred to PT with dorsalgia and R leg pain. Pt describes chronic pain R abdominal region and R lower back resulting in pain and difficulty with static positions such as standing and sitting. 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 Pt has had GI work-up and kidney all negative, sees OB in 2 weeks. At this time, she presents with hypermobility, poor ability to maintain neutral pelvis, decreased proprioception and decreased hip strength. Recommend PT 2x/week for 4 weeks to address impairments, implement HEP, and optimize functional mobility Frequency and Duration: The patient will be seen 2x/week for 4 weeks Short Term Goals: 2 weeks I with HEP Demonstrate neutral pelvis with standing arm exercises wihtout cues Assisted Goals: 4 weeks I with HEP and self management of sx Pt will be able to walk 25 min with pain < 3/10 Pt will be able to stand > 15 min with pain < 3/10 Treatment Plan: Modalities to reduce pain, spasms and effusion. Manual therapy to restore motion and function. Therapeutic exercise to improve strength and flexibility. Neuromuscular re-education for posture and balance. Therapeutic activities to return to functional activities of daily living. Electronically signed by: Alessia Umana PT Please sign and return to therapist. Thank you for your referral.
--- NOTE | 2025-03-10 12:36 | MHC.PT.DC ---
[facility] [place] Office [place] Office [place] Office [address] Hank Velasquez [address] [phone] F: [phone] F: [phone] F: [phone] F: [phone] Physical Therapy Discharge Report Diagnosis: dorsalgia Pain in R leg Date of Surgery: Date of Evaluation: 12/26/24 Date of Discharge: 03/10/25 Treatments to Date: 7 Cancellations to Date: 0 No Shows to Date: 0 Discharge Status: Improved Function Independent with HEP Discharge Summary: Pt did not f/u with final visits however she was making steady progress during this course of physical therapy. She was I with HEP and was focused on increasing body awareness/ positioning with functional tasks. Electronically signed by: Alessia Umana PT Please sign and return to therapist. Thank you for your referral.
== END 2025-03-10 12:36 | disposition home or self-care (01) ==
LOC: HO.PT 10:50
PROVIDERS: PCP Internal Medicine
DX: M54.9 Dorsalgia, unspecified (principal); M79.604 Pain in right leg
CPT/HCPCS: 97110; 97112; 97140; 97162; 97530

== ENCOUNTER 2025-02-23 15:41 | Outpatient (REF) | payer MEDICARE, MEDICAID, SELFPAY | END 2025-02-23 15:42 | disposition home or self-care (01) | LOC: HO.MAMMO 15:41 | PROVIDERS: Visit Provider Advanced Practice Midwife | DX: Z12.31 Encounter for screening mammogram for malignant neoplasm of breast (principal) | CPT/HCPCS: 77063; 77067 ==

== ENCOUNTER → 2025-02-23 16:00 | Outpatient (BNV) | payer MEDICARE, MEDICAID, SELFPAY | PROVIDERS: Visit Provider Internal Medicine | DX: Z12.31 Encounter for screening mammogram for malignant neoplasm of breast (principal) | CPT/HCPCS: 77063; 77067 ==

== ENCOUNTER 2025-02-24 09:31 | Outpatient (AMB) | payer MEDICARE, MEDICAID, SELFPAY ==
[2025-02-24 09:36] VITALS: BP 110/68; BMI 24.2
--- NOTE | 2025-02-24 09:36 | A.OFFVIS_ITS ---
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 Pt states this started about 5 months ago. Pt states she has pain after walking or being on her feet for long periods of time. Allergies amoxicillin Allergy (Intermediate, Verified 02/24/25 09:38) Rash famotidine Allergy (Intermediate, Verified 02/24/25 09:38) Chest Pain Latex, Natural Rubber Allergy (Mild, Verified 02/24/25 09:38) rash HPI HPI MANAGER ASSISTED LIVING/Self-referral for foot swelling and pain: Details: Shy, a pleasant 39yo female patient, is presenting today with concerns of left ankle discoloration/swelling. She states that in Oct she was moving a door and it slammed against the inside of her left ankle. She did not seek any treatment at the time; she states there was some swelling and pain at the site of her ankle, which went away. She states she started recently noting that the ankle was getting swelling and discoloration, especially when she stands/walks for more than an hour, over the last month or so. She has been seen at PT; she states she was compensating on her right foot/leg and not putting as much weight on the left ankle, throwing off her gait; they did not address the left ankle. Complaints include pain over varicosities and swelling of lower extremities. It has been affecting their daily activities including walking and standing for >1h at a time. It is noted more so in the left medial ankle. She is a nonsmoker and is not a diabetic. Patient denies any previous venous surgery or injections. Patient denies any history of DVT/ PE. Patient denies any history of phlebitis. Trial of compression includes - elevation They now present for vascular evaluation regarding their varicose veins. [facility] Medical History Otero's esophagus Bipolar disorder Anxiety and depression Intestinal polyps Surgical History H/O tubal ligation Family History Maternal Grandmother Leukemia Maternal Grandfather Emphysema lung Paternal Grandmother Alcoholism Mother No problems noted. Father Substance abuse Maternal Uncle Myocardial infarct Social History Housing: Apartment Patient Tobacco Use Status: Former Tobacco user Tobacco use type: Cigarette e-Cigarette/Vaping Use: Never Used Second Hand Smoke Exposure: Yes Substance Use Type: Marijuana service: No Current occupational status: unemployed Cognitive needs: No Hearing needs: No Vision needs: Yes Female Reproductive History Menstrual Age of Menarche: 10 Review of Systems Const Reports as per HPI and Denies weakness ENT Reports Normal hearing present and Denies dizziness Card Reports as per HPI, Denies chest pain, Denies chest pain at rest, Denies chest pain with activity, Denies dyspnea and Denies dyspnea on exertion Resp Reports as per HPI, Denies cough, Denies dyspnea and Denies dyspnea on exertion GI Reports as per HPI, Denies abdominal pain, Denies nausea and Denies vomiting Musc Denies numbness Skin/Breast Reports as per HPI, Denies erythema and Denies wounds Neuro Reports Normal hearing present, Denies dizziness, Denies numbness, Denies Sensory deficit (Neuro) and Denies weakness Psych Reports no additional complaints Endo Reports no additional complaints Physical Exam Vital Signs: Last Vital Signs BP 110/68 02/24/25 09:36 BMI result Body Mass Index 24.2 Const General: healthy appearing and no acute distress Orientation/consciousness: patient oriented x3 HEENT Head: Yes normal to inspection Ears: hearing grossly normal bilaterally Mouth: Normal oral and palatal mucosa present Resp Effort & Inspection: normal respiratory effort and able to speak in complete sentences Auscultation: clear to auscultation bilaterally Cardio Jugular venous distension: no JVD Rate: regular rate Rhythm: regular rhythm Heart sounds: S1 normal heart sound present and S2 normal heart sound present Bruits: no abdominal aortic bruits, no carotid bruits, no femoral bruits and no renal bruits Peripheral pulses: Peripheral pulses 2+ throughout GI Inspection: Yes normal to inspection Palpation (GI): No Abdominal aortic bruit present Skin General skin exam: no rashes or lesions noted Wounds: no wounds Hair: normal Neuro General: patient oriented x3 Cranial nerves: Yes Normal hearing present Cognition (Neuro): normal cognition Gait exam (Neuro): Normal gait present Motor exam (neuro): 5/5 motor strength present throughout Sensory Exam: No Sensory deficit (Neuro) Extrem Other: Left medial ankle: telangiectasia noted throughout the medial ankle. Palpable DP and PT pulses. CEAP: C - 4 E - primary A - superficial P - reflux General: Yes normal to inspection, Yes full ROM, Yes capillary refill normal and Yes normal gait Assessment & Plan Assessment & Plan (1) Varicose veins of left lower extremity: Code(s): I83.92 - Asymptomatic varicose veins of left lower extremity Category: Medical Qualifiers: Varicose vein complication: pain Qualified Code(s): I83.812 - Varicose veins of left lower extremity with pain Plan: Shy is presenting as a self-referral for concerns of left ankle swelling and discoloration, since Oct. I discussed that this is likely a venous insufficiency issue, but we will definitely rule it out. In short, the patient has evidence of venous insufficiency. I have discussed the pathophysiology with the patient. In addition I have provided informational material regarding venous disease to the patient. We have discussed conservative measures including compression, elevation, and exercise. I have taken the liberty of ordering venous insufficiency testing with the patient. They will follow up with me after testing. The patient had an opportunity to ask questions regarding the treatment plan. All questions were answered. Imaging studies, laboratory studies and physical exam results were discussed and reviewed in detail. No major barriers to understanding were identified. The patient expressed understanding and agreement with the above treatment plan. The patient is aware they should contact our office by phone for worsening of the current condition or the appearance of new symptoms. Thank you for allowing me to participate in the vascular care of this patient. If you have any questions or concerns regarding the treatment for the above condition please do not hesitate to contact me. The office telephone contact is [phone]. This note is constructed using voice recognition software. While every eff ort has been made to ensure accuracy, turret lathe tender errors may have been included. Thank you for allowing me to participate in the care of your patient. Yours sincerely, ENRIQUE Penaloza Orders: Orders US venous duplex LE BI 1 Week I83.92 - Asymptomatic varicose veins of left lower extremity Coding Level of Care Code New Pt Level 4 (47776) Diagnoses Varicose veins of left lower extremity with pain I83.812 Varicose vein complication: pain
== END 2025-02-24 09:55 | disposition home or self-care (01) ==
LOC: HO.HVS 09:32
PROVIDERS: Visit Provider Physician Assistant Surgical
DX: I83.812 Varicose veins of left lower extremity with pain (principal)
CPT/HCPCS: 99204

== ENCOUNTER → 2025-02-24 09:31 | Outpatient (BNVA) | payer MEDICARE, MEDICAID, SELFPAY | PROVIDERS: Visit Provider Physician Assistant Surgical | DX: I83.812 Varicose veins of left lower extremity with pain (principal) | CPT/HCPCS: 99202 ==

== ENCOUNTER 2025-02-25 15:56 | Outpatient (REF) | payer MEDICARE, MEDICAID, SELFPAY ==
--- NOTE | ~2025-02-25 | US_ITS ---
EXAMINATION: US PELVIS CLINICAL INFORMATION: Intracranial brain COMPARISON: None available. TECHNIQUE: Ultrasound of the pelvis is performed using both transabdominal and transvaginal transducers along with Doppler. Transvaginal imaging is performed due to inadequate visualization transabdominally. FINDINGS: Uterus: The uterus is anteverted , anteflexed and measures 9.6 x 3.8 x 5.1 cm. The double wall endometrial thickness is 0.9 cm. The uterus is smooth in contour and has normal myometrial echogenicity. No visible fibroid. There is small calcification seen in left of midline uterine body measuring 0.3 x 0.3 0.3 cm. Adnexa: Both ovaries are visualized. There is normal color flow to the adnexa. There is no ovarian torsion. There is no pelvic ascites or fluid collection. Right ovary measures 3.2 x 2.4 x 2.5 cm. 10.0 mL. A small corpus luteal cyst measuring 2.0 x 1.8 x 1.9 cm. Left ovary measures 2.4 x 2.1 x 1.5 cm. Volume 1.3 mL. There is no free fluid seen in the cul-de-sac. US/US pelvic and transvaginal IMPRESSION: Small corpus luteal cyst right ovary. Unremarkable left ovary and uterus. Electronically signed by: Richard Silva MD 02/26/2025 07:08 AM EDT
== END 2025-02-25 15:57 | disposition home or self-care (01) ==
LOC: HO.US 15:56
PROVIDERS: Visit Provider Advanced Practice Midwife
DX: R10.2 Pelvic and perineal pain (principal)
CPT/HCPCS: 76830; 76856

== ENCOUNTER → 2025-02-25 15:57 | Outpatient (BNV) | payer MEDICARE, MEDICAID, SELFPAY | PROVIDERS: Visit Provider Radiology Diagnostic Radiology | DX: N83.201 Unspecified ovarian cyst, right side (principal) | CPT/HCPCS: 76830; 76856 ==

== ENCOUNTER 2025-03-11 14:40 | Outpatient (AMB) | payer MEDICARE, MEDICAID, SELFPAY ==
--- NOTE | 2025-03-11 14:41 | MHC.OFFVIS ---
Vital Signs 03/11/25 14:46 Height 5 ft 6 in Weight 150 lb BMI 24.2 BP 112/72 Intake Visit Reasons: Ultrasound follow up Workforce Advisor: Workforce Advisor Present ([place]) Accompanied by: Self / Same As Patient Allergies amoxicillin Allergy (Intermediate, Verified 03/11/25 14:46) Rash famotidine Allergy (Intermediate, Verified 03/11/25 14:46) Chest Pain Latex, Natural Rubber Allergy (Mild, Verified 03/11/25 14:46) rash Medication List - Last Reconciled 03/11/25 by Alice Bob CNM magnesium 200 mg PO DAILY Is last menstrual period known: Yes Last menstrual period: 03/07/25 Post menopausal: No Patient : No HPI HPI Ultrasound follow up: Details: is here to review her u/s. She is having a chronic pain on the right side it is there all the time but gets worse right before her period. The ultrasound was done on February 25 she had her period on March 07 and it is just ending. She has been discussing whether not to go on hormones or antidepressants but she wants to be on as little as possible. But she has been going through emotional changes throughout her cycle and premenstrual early she finds herself very depressed and has been borderline suicidal she has been discussing this with her psychiatrist and therapist and other provider's. They had recommended she seek out the hormonal issues 1st. And while awaiting results of this this visit she ordered online a estrogen progesterone cream to use topically to see if that would be of assistance and as far she knew she was to use it on non hair-bearing parts of her skin. Additionally there were some DHEA tablets to would take after that. they have not arrived yet. This was all obtained through an online chat internal control consultant called [employer]. She is anxious about this however.. Reviewed with her the results of the ultrasound essentially discussed the certainly is possible the there is some scar tissue contributing to be discomfort she feels pre menstrually as she had it salpingectomy a couple of years ago in the pain did get worse after. I did offer her consideration of progestin only OCPs to see if that would be some benefit in leveling out her hormonal cycle and dampening the highs and lows.. Discussed some of the negative effects as well it might be something she might consider. She thinks she will probably use the creams that are arriving soon. [facility] Medical History Otero's esophagus Bipolar disorder Anxiety and depression Intestinal polyps Surgical History H/O tubal ligation Family History Maternal Grandmother Leukemia Maternal Grandfather Emphysema lung Paternal Grandmother Alcoholism Mother No problems noted. Father Substance abuse Maternal Uncle Myocardial infarct Social History Housing: Apartment Patient Tobacco Use Status: Former Tobacco user Tobacco use type: Cigarette e-Cigarette/Vaping Use: Never Used Second Hand Smoke Exposure: Yes Substance Use Type: Marijuana Patient : No service: No Current occupational status: unemployed Cognitive needs: No Hearing needs: No Vision needs: Yes Female Reproductive History Menstrual Age of Menarche: 10 Date of last menstrual period: 03/07/25 control method: permanent sterilization Total pregnancies: 0 Date of Mammogram: 02/23/25 (bi rad ) Physical Exam Vital Signs: Last Vital Signs BP 112/72 03/11/25 14:46 BMI result Body Mass Index 24.2 Results Reviewed Results Reviewed: Patient: Shy Saeed MR#: [id number] : 1985 Acct:[id number] Age/Sex: 39 / F ADM Date: 02/25/25 Loc: HO.US Attending Dr: Alice Bob CNM Ordering Physician: Alice Bob CNM Date of Service: 02/25/25 Procedure(s): US pelvic and transvaginal Accession Number(s): [id number] cc: Alice Bob CNM; León Herrmann~ EXAMINATION: US PELVIS CLINICAL INFORMATION: Intracranial brain COMPARISON: None available. TECHNIQUE: Ultrasound of the pelvis is performed using both transabdominal and transvaginal transducers along with Doppler. Transvaginal imaging is performed due to inadequate visualization transabdominally. FINDINGS: Uterus: The uterus is anteverted , anteflexed and measures 9.6 x 3.8 x 5.1 cm. The double wall endometrial thickness is 0.9 cm. The uterus is smooth in contour and has normal myometrial echogenicity. No visible fibroid. There is small calcification seen in left of midline uterine body measuring 0.3 x 0.3 0.3 cm. Adnexa: Both ovaries are visualized. There is normal color flow to the adnexa. There is no ovarian torsion. There is no pelvic ascites or fluid collection. Right ovary measures 3.2 x 2.4 x 2.5 cm. 10.0 mL. A small corpus luteal cyst measuring 2.0 x 1.8 x 1.9 cm. Left ovary measures 2.4 x 2.1 x 1.5 cm. Volume 1.3 mL. There is no free fluid seen in the cul-de-sac. US/US pelvic and transvaginal IMPRESSION: Small corpus luteal cyst right ovary. Unremarkable left ovary and uterus. Electronically signed by: Richard Silva MD 02/26/2025 07:08 AM EDT RP Dictated By: Richard Silva MD Signed By: <Electronically signed by Richard Silva MD in OV> 02/26/25 0708 DD/ 1608 TD/TT: 02/25/25 1617 Assistant To The Ceo: JASON Assessment & Plan Assessment & Plan (1) Cervical cancer screening: Comment: 01/14/2025 Pap is negative with negative HPV. Code(s): Z12.4 - Encounter for screening for malignant neoplasm of cervix Category: Medical (2) Perimenopausal symptoms: Code(s): N95.1 - Menopausal and female climacteric states Category: Medical (3) Pelvic pain: Code(s): R10.2 - Pelvic and perineal pain Category: Medical (4) Anxiety and depression: Code(s): F41.9 - Anxiety disorder, unspecified; F32.A - Depression, unspecified Category: Medical (5) Hx of bilateral salpingectomy: Code(s): Z90.79 - Acquired absence of other genital organ(s) Category: Surgical Plan is here to review her u/s. She is having a chronic pain on the right side it is there all the time but gets worse right before her period. The ultrasound was done on May 7th she had her period on March 07 and it is just ending. She has been discussing whether not to go on hormones or antidepressants but she wants to be on as little as possible. But she has been going through emotional changes throughout her cycle and premenstrual early she finds herself very depressed and has been borderline suicidal she has been discussing this with her psychiatrist and therapist and other provider's. They had recommended she seek out the hormonal issues 1st. And while awaiting results of this this visit she ordered online a estrogen progesterone cream to use topically to see if that would be of assistance and as far she knew she was to use it on non hair-bearing parts of her skin. Additionally there were some DHEA tablets to would take after that. they have not arrived yet. This was all obtained through an online chat internal control consultant called ANDRIY. She is anxious about this advice and plan however.. Reviewed with her the results of the ultrasound- essentially normal; discussed the possibility that there it certainly is possible the there is some scar tissue contributing to be discomfort she feels pre menstrually, as she had the salpingectomy a couple of years ago and the pain did get worse after. I did offer her consideration of progestin only OCPs to see if that would be some benefit in leveling out her hormonal cycle and dampening the highs and lows.. Discussed some of the negative effects as well, but it might be something she might consider. She thinks she will probably use the creams that are arriving soon. In addition however I helped her look up on her phone the website for Mattie Temple CNM at [facility] and her menopause and sexual health practice and suggested she may want to give her a call and arrange a visit and she should bring any records with her I did review her Pap smear with her as well normal. I did try to place a referral in the system to the practice in question but was unable to. Coding Level of Care Code Est Pt Level 3 (21903) Diagnoses Cervical cancer screening Z12.4 Perimenopausal symptoms N95.1 Pelvic pain R10.2 Anxiety and depression F41.9; F32.A Hx of bilateral salpingectomy Z90.79
[2025-03-11 14:46] VITALS: BP 112/72; BMI 24.2
== END 2025-03-11 15:25 ==
LOC: HO.HWSM 14:40
PROVIDERS: Visit Provider Advanced Practice Midwife
DX: Z12.4 Encounter for screening for malignant neoplasm of cervix (principal); N95.1 Menopausal and female climacteric states; R10.2 Pelvic and perineal pain; F41.9 Anxiety disorder, unspecified; F32.A Depression, unspecified; Z90.79 Acquired absence of other genital organ(s)
CPT/HCPCS: 99213

== ENCOUNTER → 2025-03-11 14:40 | Outpatient (BNVA) | payer MEDICARE, MEDICAID, SELFPAY | PROVIDERS: Visit Provider Advanced Practice Midwife | DX: N95.1 Menopausal and female climacteric states (principal); R10.2 Pelvic and perineal pain; F41.9 Anxiety disorder, unspecified; F32.A Depression, unspecified; Z90.79 Acquired absence of other genital organ(s) | CPT/HCPCS: 99212 ==

== ENCOUNTER 2025-03-23 07:33 | Outpatient (REF) | payer MEDICARE, MEDICAID, SELFPAY ==
--- NOTE | ~2025-03-23 | US_ITS ---
EXAMINATION: US LOWER EXTREMITY VENOUS (REFLUX EXAM), BILATERAL CLINICAL INFORMATION: Asymptomatic varicose veins of the left lower extremity COMPARISON: None. TECHNIQUE: Color flow triplex imaging and compression Doppler was performed to evaluate both the deep and the superficial systems bilaterally. To evaluate the superficial system, the examination was performed in the upright position. Color-flow Doppler ultrasound and compression ultrasound were utilized. In addition, maneuvers were utilized to demonstrate reflux. FINDINGS: 1. DEEP VENOUS ULTRASOUND OF THE RIGHT LOWER EXTREMITY: Common Femoral Vein: Compressible, normal respiratory variation and augmented flow. Femoral Vein: Compressible, normal color flow and augmentation. Popliteal Vein: Compressible, normal augmentation. Deep Reflux: There is no evidence of reflux in the deep system in either the common femoral vein, superficial femoral or the popliteal vein. 2. SUPERFICIAL ULTRASOUND WITH DOPPLER OF RIGHT LOWER EXTREMITY: GREAT SAPHENOUS VEIN: Saphenofemoral Junction: 0.8 cm; Reflux: 0 ms Proximal Thigh: 0.3 cm; Reflux: 0 ms Mid Thigh: 0.3 cm; Reflux: 0 ms Distal Thigh: 0.3 cm; Reflux: 0 ms At Knee: 0.3 cm; Reflux: 0 ms Proximal Calf: 0.3 cm; Reflux: 0 ms Mid Calf: 0.2 cm; Reflux: 0 ms Distal Calf: 0.2 cm; Reflux: 0 ms DUPLICATED MEDIAL GREAT SAPHENOUS VEIN: Diameter: 0.2 Reflux: 0 DUPLICATED LATERAL GREAT SAPHENOUS VEIN: Diameter: None imaged Reflux: NA SMALL SAPHENOUS VEIN: Saphenopopliteal Junction: 0.4 cm; Reflux: 0 ms Proximal: 0.2 cm; Reflux: 0 ms Distal: 0.3 cm; Reflux: 0 ms VEIN OF GIACOMINI: Size: NA Reflux: NA PERFORATORS: Location: calf Size: 0.2 Reflux: 0 VARICOSITIES: Location: None imaged. Size: NA Reflux: NA 3. DEEP VENOUS ULTRASOUND OF THE LEFT LOWER EXTREMITY: Common Femoral Vein: Compressible, normal respiratory variation and augmented flow. Femoral Vein: Compressible, normal color flow and augmentation. Popliteal Vein: Compressible, normal augmentation. Deep Reflux: There is no evidence of reflux in the deep system in either the common femoral vein, superficial femoral or the popliteal vein. There is no evidence of a Main's cyst. 4. SUPERFICIAL ULTRASOUND WITH DOPPLER OF LEFT LOWER EXTREMITY: GREAT SAPHENOUS VEIN: Saphenofemoral Junction: 0.6 cm; Reflux: 0 ms Proximal Thigh: 0.2 cm; Reflux: 0 ms Mid Thigh: 0.1 cm; Reflux: 0 ms Distal Thigh: 0.1 cm; Reflux: 0 ms At Knee: 0.2 cm; Reflux: 0 ms Proximal Calf: 0.2 cm; Reflux: 0 ms Mid Calf: 0.2 cm; Reflux: 0 ms Distal Calf: 0.2 cm; Reflux: 0 ms DUPLICATED MEDIAL GREAT SAPHENOUS VEIN: Diameter: 0.2 cm Reflux: 0 DUPLICATED LATERAL GREAT SAPHENOUS VEIN: Diameter: None imaged. Reflux: NA SMALL SAPHENOUS VEIN: Saphenopopliteal Junction: 0.5 cm; Reflux: 0 ms Proximal: 0.3 cm; Reflux: 0 ms Distal: 0.3 cm; Reflux: 0 ms VEIN OF GIACOMINI: Size: NA Reflux: NA PERFORATORS: Location: None imaged Size: NA Reflux: NA VARICOSITIES: Location: None Imaged Size: NA Reflux: NA US/US venous insuf bilat IMPRESSION: Right: No reflux was documented. 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 Left: No reflux was documented. Electronically signed by: Reuben Lutz MD 03/25/2025 11:57 AM EDT
[2025-03-23 08:40] LABS: Cholesterol 177 mg/dL (<200); Glucose Fasting 97 mg/dL (60-99); HDL Cholesterol 55 mg/dL (>40); LDL Cholesterol Calculated 103 mg/dL (<100); Triglycerides 96 mg/dL (<150)
== END 2025-03-23 07:34 | disposition home or self-care (01) ==
LOC: HO.US 07:33
PROVIDERS: Visit Provider Physician Assistant Surgical
DX: R20.0 Anesthesia of skin (principal); E55.9 Vitamin D deficiency, unspecified; R42 Dizziness and giddiness; F41.9 Anxiety disorder, unspecified; F31.9 Bipolar disorder, unspecified; R10.9 Unspecified abdominal pain; K22.719 Barrett's esophagus with dysplasia, unspecified; E78.00 Pure hypercholesterolemia, unspecified; I83.92 Asymptomatic varicose veins of left lower extremity; N95.1 Menopausal and female climacteric states
CPT/HCPCS: 36415; 80061; 82947; 93970; 99212

== ENCOUNTER → 2025-03-23 13:27 | Outpatient (BNV) | payer MEDICARE, MEDICAID, SELFPAY | PROVIDERS: Visit Provider Radiology Diagnostic Radiology | DX: I83.92 Asymptomatic varicose veins of left lower extremity (principal) | CPT/HCPCS: 93970 ==

== ENCOUNTER 2025-03-23 15:43 | Outpatient (AMB) | payer MEDICARE, MEDICAID, SELFPAY ==
[2025-03-23 15:46] VITALS: BP 100/70; PULSE 83; RESP 16; TEMP 36.8; O2SAT 99; BMI 26.0
--- NOTE | 2025-03-23 15:46 | A.OFFPC_ITS ---
Vital Signs 03/23/25 15:46 Height 5 ft 6 in Weight 161 lb 6 oz BMI 26.0 BP 100/70 Blood Pressure Location Lt brachial Position Sitting Respiration 16 Pulse 83 Pulse Source Pulse Oximeter Temp 98.2 F Temp Source Oral Pulse Oximetry (%) 99 Oxygen Delivery Method Room Air Intake Visit Reasons: gilliam's esophagus/ elevated ldl Filter Tank Operator Required: No Accompanied by: Self / Same As Patient Allergies amoxicillin Allergy (Intermediate, Verified 03/23/25 16:32) Rash famotidine Allergy (Intermediate, Verified 03/23/25 16:09) Chest Pain Latex, Natural Rubber Allergy (Mild, Verified 03/23/25 16:09) rash Medication List - Last Reconciled 03/29/25 by BENNETT Zapata [Estrogen/progesterone CRM 5/200 mg/ml, apply 2 pump topically to skin once a day] magnesium 200 mg PO DAILY prasterone (DHEA) (DHEA) 50 mg PO DAILY Tobacco use date assessed: 03/23/25 Dental Screening Dental Screen Date: 03/23/25 Did you have a dental visit in the last 12 months?: Yes Did you have a dental problem in the last 6 months where you did not have access to dental care?: No Was dental information given to patient?: Patient has dentist HPI gilliam's esophagus/ elevated ldl HPI Details The patient is a 39-year-old female presenting with multiple symptomatologies including gastroesophageal reflux disease, musculoskeletal imbalance, vascular irregularities and potential perimenopausal symptoms. She has documented improvement in GERD following dietary adjustment to include daily yogurt and reduction of gluten intake. Musculoskeletal issues revealed an imbalance, rectified via therapy and leveling shoe inserts, though leg discomfort persists due to varicose concerns under current investigation. There is confirmation of a non-problematic ovarian cyst correlating with cyclical pain. Perimenopausal symptoms with associated hormonal changes prompted exploration of hormonal interventions uncommenced pending hormone level confirmation. Prior hypercholesterolemia control shows progress but remains above acceptable criteria. She has a history of colorectal polyps with procedural evaluations conducted on schedule, dense breast parenchyma requiring continued screening, and a history of gluten sensitivity. Added, reports that she did not contact Gastroenterology because she started feeling better after she started eating yogurt regularly and cutting out the foods that she is intolerant to. PT helped her identify that her hips were uneven and that was contributing to her pinched nerve. This was causing her to favor her right leg and putting more pressure on it. Vascular surgeon center for an ultrasound of the leg to rule out DVT and to assess cause of her spider veins. Patient reports getting useful information from the OBGYN to help with her perimenopausal symptoms She was guided to an online service, where she was provided with the medications below DHEA 25 mg capsule take 1 capsule by mouth daily Estrogen/progesterone w-BIEST/PROG CRM 5/200mg/ml apply 2 pumps topically to skin and rub in once daily PFSH Medical History Gilliam's esophagus Bipolar disorder Anxiety and depression Intestinal polyps Surgical History H/O tubal ligation Family History Maternal Grandmother Leukemia Maternal Grandfather Emphysema lung Paternal Grandmother Alcoholism Mother No problems noted. Father Substance abuse Maternal Uncle Myocardial infarct Social History Housing: Apartment Patient Tobacco Use Status: Former Tobacco user Tobacco use type: Cigarette e-Cigarette/Vaping Use: Never Used Second Hand Smoke Exposure: Yes Substance Use Type: Marijuana service: No Current occupational status: unemployed Cognitive needs: No Hearing needs: No Vision needs: Yes Female Reproductive History Menstrual Age of Menarche: 10 Questionnaire PHQ-9 Over the last 2 weeks, how often have you been bothered by any of the following problems? 1. Little interest or pleasure in doing things: nearly every day 2. Feeling down, depressed, or hopeless: nearly every day 3. Trouble falling or staying asleep, or sleeping too much: nearly every day 4. Feeling tired or having little energy: nearly every day 5. Poor appetite or overeating: nearly every day 6. Feeling bad about yourself - or that you are a failure or have let yourself or your family down: more than half the days 7. Trouble concentrating on things, such as reading the newspaper or watching television: nearly every day 8. Moving or speaking so slowly that other people could have noticed. Or the opposite - being so fidgety or restless that you have been moving around a lot more than usual: nearly every day 9. Thoughts that you would be better off or of hurting yourself in some way: more than half the days Total score: 25 Depression Screening Interpretation: Positive Depression Screening Done: Yes Source: Developed by Drs. Steven Mason, Gabby Mahajan, Daniel German and colleagues, with an educational cecil from [employer]. Thrive Questionnaire Date Thrive assessed: 03/23/25 I am a: Patient What is your living situation today?: I choose not to answer this question Within the past 12 months, did the food you bought not last and you didn't have the money to get more?: I choose not to answer this question Within the past 12 months, did you worry whether your food would run out before you got money to buy more?: Sometimes True Do you have trouble paying for medicines?: Yes Do you have trouble getting transportation to medical appointments?: Yes Do you have trouble paying your heating and electricity bill?: I choose not to answer this question Do you have trouble taking care of your child, family member or friend?: No Do you have trouble with day-to-day activities such as bathing, preparing meals, shopping, managing finances, etc.?: Yes Are you currently unemployed and looking for a job?: No Are you interested in more education?: Yes Please select the resources that you would like help with: None Currently or been in a relationship where the following occur: No concerns reported THRIVE Score: 2 AUDIT C Alcohol Use Questionnaire (AUDIT-C) 1. How often do you have a drink containing alcohol?: Never 3. How often do you have six or more drinks on one occasion?: Never Total Score: 0 MEGAN-7 AMB Questionnaire MEGAN-7 Date MEGAN - 7 assessed: 03/23/25 Feeling nervous, anxious, or on edge: 3 = Nearly every day Not being able to stop or control worryin = More than half the days Worrying too much about different things: 3 = Nearly every day Trouble relaxin = More than half the days Being so restless that it is hard to sit still: 1 = Several days Becoming easily annoyed or irritable: 2 = More than half the days Feeling afraid as if something awful might happen: 2 = More than half the days Total MEGAN-7 score (0-4 normal; 5-9 mild; 10-14 moderate; 15-21 severe): 15 Source: Developed by Drs. Stveen Mason, Gabby Mahajan, Daniel German and colleagues, with an educational cecil from [employer]. Review of Systems Const Denies headache(s) Eyes Denies loss of vision ENT Denies vertigo, Denies dizziness, Denies headache(s) and Denies sore throat Card Denies chest pain, Denies leg edema and Denies lightheadedness Resp Denies cough, Denies hemoptysis and Denies wheezing GI Denies abdominal pain, Denies melena, Denies constipation, Denies diarrhea and Denies vomiting Denies urinary frequency, Denies dysuria and Denies urinary urgency Musc Denies arthralgias, Denies joint swelling, Denies numbness and Denies tingling Skin/Breast Reports other (Lower legs varicose veins) Neuro Denies Abnormal speech present, Denies behavioral changes, Denies vertigo, Denies dizziness, Denies headache(s), Denies loss of vision, Denies memory loss, Denies numbness and Denies tingling Psych Reports anxiety, Denies behavioral changes, Reports depression, Denies memory loss and Denies panic attacks Ankit/Lymph Denies easy bleeding and Denies easy bruising Aller/Immun Denies wheezing Physical exam (Primary Care) Vital Signs: Last Vital Signs Pulse 83 03/23/25 15:46 BP 100/70 03/23/25 15:46 Pulse Ox 99 03/23/25 15:46 Oxygen Delivery Method Room Air 03/23/25 15:46 BMI result Body Mass Index 26.0 Tobacco/Smoking Status: Tobacco use Status Tobacco use date assessed 03/23/25 03/23/25 15:52 Patient Tobacco Use Status Former Tobacco user 03/23/25 15:52 Tobacco use type Cigarette 03/23/25 15:52 e-Cigarette/Vaping Use Never Used 03/23/25 15:52 PHQ-9: PHQ-9 Score PHQ-9: Total score 03/23/25 17:08 Depression Screening Interpretation: Positive Thrive Assessment: Date of Thrive Assessment Date Thrive assessed 03/23/25 03/23/25 15:52 Currently or been in a relationship where the following occur: No concerns reported Const General: healthy appearing, no acute distress, alert and awake Nutritional Appearance: well nourished Orientation/consciousness: oriented to person, oriented to place and oriented to time HENMT Ears: TM's normal bilaterally General nose exam: Normal nasal mucous membranes and turbinates present Eyes Conjunctivae: conjunctivae normal Sclerae: sclerae normal Pupils: Equal, round and reactive pupils present Neck Neck: Yes no lymphadenopathy and Yes no JVD Thyroid: Thyroid normal Carotids: no bruits Resp Effort & Inspection: normal respiratory effort and not tachypneic Auscultation: no crackles, no rales, no rhonchi and no wheezes Cardio Rate: regular rate Rhythm: regular rhythm Heart sounds: no murmurs and normal S1 and S2 GI Palpation (GI): Soft to palpation, nontender, no hepatomegaly and no splenomegaly Auscultation: normal bowel sounds Skin General skin exam: no rashes or lesions noted and dry skin Neuro General: oriented to person, oriented to place and oriented to time Cranial nerves: Yes Equal, round and reactive pupils present Speech: No Abnormal speech present Gait exam (Neuro): Normal gait present Motor exam (neuro): no tremor noted Extrem Right upper extremity: full ROM Left upper extremity: full ROM Right lower extremity: full ROM; no edema Left lower extremity: full ROM; no edema Psych Mental Status: mental status grossly normal Speech and movement: Normal speech and movement present Affect: normal affect Attitude: cooperative Thought process: Normal thought process present Results Reviewed Results Reviewed: Laboratory Tests 03/23/25 07:42 Fasting Glucose 97 Triglycerides 96 Cholesterol 177 LDL Cholesterol, Calc 103 H HDL Cholesterol 55 Coding Level of Care Code Est Pt Level 3 (60602) Diagnoses Perimenopausal symptoms N95.1 Varicose veins of left lower extremity with pain I83.812 Varicose vein complication: pain Elevated LDL cholesterol level E78.00 Gilliam's esophagus with dysplasia K22.719 Gilliam's esophagus type: with dysplasia of unspecified degree Vitamin D deficiency E55.9 Anxiety and depression F41.9; F32.A Time Spent (min) 33 Assessment & Plan Assessment & Plan (1) Perimenopausal symptoms: Code(s): N95.1 - Menopausal and female climacteric states Category: Medical Plan: States that she met with OBGYN seat trimmer and she recommended an online provider who prescribed DHEA 25 mg capsule daily and a combination cream of estrogen/progesterone 5 4/200 mg/mL apply 2 pumps topically to skin and rubbing once a day. The patient has not started these therapies as yet in his requesting to have some blood work completed. We will order FSH, luteinizing, DHEA, estradiol, anti-mullerian levels to further evaluate. (2) Varicose veins of left lower extremity: Code(s): I83.92 - Asymptomatic varicose veins of left lower extremity Category: Medical Qualifiers: Varicose vein complication: pain Qualified Code(s): I83.812 - Varicose veins of left lower extremity with pain Plan: She was evaluated by vascular surgery. Ultrasound of lower leg completed to rule out DVT. She reports that there is plans to further evaluate her cause varicose veins/venous deficiency. (3) Elevated LDL cholesterol level: Code(s): E78.00 - Pure hypercholesterolemia, unspecified Category: Medical Plan: LDL 103 decreased from 109 months ago-trending in the right direction Discussed lifestyle modifications including dietary changes and physical activity We will recheck lipid panel in 3 months (4) Gilliam's esophagus: Code(s): K22.70 - Gilliam's esophagus without dysplasia Category: Medical Qualifiers: Gilliam's esophagus type: with dysplasia of unspecified degree Qualified Code(s): K22.719 - Gilliam's esophagus with dysplasia, unspecified Plan: History of intense heartburn. The patient is denying heartburn in office today. Per patient, since she has started eliminating the irritating foods from her diet and has been eating yogurt daily, her good health has improved significantly. She was supposed to follow up with GI but has not done so yet because she is feeling better. Encouraged follow up with GI as needed (5) Vitamin D deficiency: Code(s): E55.9 - Vitamin D deficiency, unspecified Category: Medical Plan: Continue vitamin D3 1000 IU OTC (6) Anxiety and depression: Code(s): F41.9 - Anxiety disorder, unspecified; F32.A - Depression, unspecified Category: Medical Plan: Encouraged CBT Denies SI/HI Plan Dietary management of GERD is successful with yogurt, further evaluated pending sinus radiograph results. Vascular intervention combines pending ultrasound results with eventual vein therapy. Musculoskeletal therapy remains integral to symptom control, pending further interpretation of vascular insufficiency. Hormonal therapy discussions hinge on baseline hormone profile acquisition. Lipid profile adjustments show positive trends but necessitate ongoing dietary vigilance. Colonoscopic stability permits biennial surveillance, with mammographic density necessitating annual screening. Discussion with respective specialists ensures coherent care protocols are maintained. Patient was informed and verbally consented to the use of an ambient scribe for clinic note documentation during this visit. Orders: Orders Estradiol Ultra Sensitive 03/24/25 N95.1 - Menopausal and female climacteric states DHEA Sulfate 03/24/25 N95.1 - Menopausal and female climacteric states Follicle Stimulating Hormone 03/24/25 N95.1 - Menopausal and female climacteric states Anti-Mullerian Hormone-Female 03/24/25 N95.1 - Menopausal and female cl imacteric states Lutenizing Hormone 03/24/25 N95.1 - Menopausal and female climacteric states Patient Instructions: Follow up in 3 months to evaluate perimenopausal symptoms and Gilliam's disease
== END 2025-03-23 17:09 | disposition home or self-care (01) ==
LOC: HO.HMCH 15:43
DX: N95.1 Menopausal and female climacteric states (principal); I83.812 Varicose veins of left lower extremity with pain; E78.00 Pure hypercholesterolemia, unspecified; K22.719 Barrett's esophagus with dysplasia, unspecified; E55.9 Vitamin D deficiency, unspecified; F41.9 Anxiety disorder, unspecified; F32.A Depression, unspecified

== ENCOUNTER 2025-03-24 12:50 | Outpatient (REF) | payer MEDICARE, MEDICAID, SELFPAY ==
[2025-03-25 07:39] LABS: DHEA Sulfate 98 mcg/dL (19-237); Follicle Stimulating Hormone 3.7 mIU/mL; Lutenizing Hormone 5.6 mIU/mL
[2025-03-27 18:39] LABS: Anti-Mullerian Hormone-Female 0.58 ng/mL (0.18-5.68)
[2025-04-05 02:53] LABS: Estradiol Ultra Sensitive 261 pg/mL
== END 2025-03-24 12:51 | disposition home or self-care (01) ==
LOC: HO.LAB 12:50
DX: N95.1 Menopausal and female climacteric states (principal)
CPT/HCPCS: 36415; 82166; 82627; 82670; 83001; 83002

== ENCOUNTER 2025-06-24 10:17 | Outpatient (AMB) | payer MEDICARE, MEDICAID, SELFPAY ==
[2025-06-24 10:20] VITALS: BP 112/68; PULSE 107; RESP 18; TEMP 34.3; O2SAT 98; BMI 27.0
--- NOTE | 2025-06-24 10:20 | MHC.PC.OV ---
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 Aircraft Required: No Accompanied by: Self / Same As Patient Allergies amoxicillin Allergy (Intermediate, Verified 06/24/25 10:20) Rash famotidine Allergy (Intermediate, Verified 06/24/25 10:20) Chest Pain Latex, Natural Rubber Allergy (Mild, Verified 06/24/25 10:20) rash Medication List - Last Reconciled 06/24/25 by BENNETT Zapata [Estrogen/progesterone CRM 5/200 mg/ml, apply 2 pump topically to skin once a day] prasterone (DHEA) (DHEA) 50 mg PO DAILY venlafaxine ER 37.5 mg PO DAILY Tobacco use date assessed: 06/24/25 Dental Screening Dental Screen Date: 06/24/25 Did you have a dental visit in the last 12 months?: No Did you have a dental problem in the last 6 months where you did not have access to dental care?: No Was dental information given to patient?: Patient has dentist HPI perimenopause/barrettes disease HPI Details The patient is a 40-year-old female presenting with concerns related to perimenopause and mental health management. The patient reports using online resources to obtain medications for perimenopause and mental health, expressing concerns about the legitimacy of these sources. She has been using an estrogen-progesterone cream and an antidepressant, which her mother recommended, and reports feeling better than she has in years. The patient has a history of being misprescribed medications, leading her mother to assist in finding a suitable antidepressant. She has been diagnosed with Autism Spectrum Disorder, which was discovered a few years ago, and believes her parents may also be undiagnosed. The patient experiences back pain, which she attributes to her habit of toe walking, and physical therapy has revealed a slight spinal curvature. She inquires about the potential benefits of healthcare liaison for her scoliosis. The patient has a history of hyperlipidemia, with previous lab results indicating slightly elevated cholesterol levels. She has been proactive in managing her cholesterol through dietary changes. The patient reports significant improvement in gastrointestinal symptoms, attributing this to dietary changes such as the inclusion of probiotics. The patient is also taking a DHEA 25 mg OTC daily. [facility] Medical History Otero's esophagus Bipolar disorder Anxiety and depression Intestinal polyps Surgical History H/O tubal ligation Family History Maternal Grandmother Leukemia Maternal Grandfather Emphysema lung Paternal Grandmother Alcoholism Mother No problems noted. Father Substance abuse Maternal Uncle Myocardial infarct Social History Housing: Apartment Patient Tobacco Use Status: Former Tobacco user Tobacco use type: Cigarette e-Cigarette/Vaping Use: Never Used Second Hand Smoke Exposure: Yes Substance Use Type: Marijuana service: No Current occupational status: unemployed Cognitive needs: No Hearing needs: No Vision needs: Yes Female Reproductive History Menstrual Age of Menarche: 10 Questionnaire PHQ-9 Over the last 2 weeks, how often have you been bothered by any of the following problems? 1. Little interest or pleasure in doing things: nearly every day 2. Feeling down, depressed, or hopeless: nearly every day 3. Trouble falling or staying asleep, or sleeping too much: nearly every day 4. Feeling tired or having little energy: nearly every day 5. Poor appetite or overeating: nearly every day 6. Feeling bad about yourself - or that you are a failure or have let yourself or your family down: more than half the days 7. Trouble concentrating on things, such as reading the newspaper or watching television: nearly every day 8. Moving or speaking so slowly that other people could have noticed. Or the opposite - being so fidgety or restless that you have been moving around a lot more than usual: nearly every day 9. Thoughts that you would be better off or of hurting yourself in some way: more than half the days Total score: 25 Depression Screening Interpretation: Positive Depression Screening Done: Yes Source: Developed by Drs. Steven Mason, Gabby B.W. Daniel Mahajan and colleagues, with an educational cecil from [employer]. Thrive Questionnaire Date Thrive assessed: 06/24/25 I am a: Patient What is your living situation today?: I choose not to answer this question Within the past 12 months, did the food you bought not last and you didn't have the money to get more?: I choose not to answer this question Within the past 12 months, did you worry whether your food would run out before you got money to buy more?: Sometimes True Do you have trouble paying for medicines?: Yes Do you have trouble getting transportation to medical appointments?: Yes Do you have trouble paying your heating and electricity bill?: I choose not to answer this question Do you have trouble taking care of your child, family member or friend?: No Do you have trouble with day-to-day activities such as bathing, preparing meals, shopping, managing finances, etc.?: Yes Are you currently unemployed and looking for a job?: No Are you interested in more education?: Yes Please select the resources that you would like help with: None Currently or been in a relationship where the following occur: No concerns reported THRIVE Score: 2 AUDIT C Alcohol Use Questionnaire (AUDIT-C) 1. How often do you have a drink containing alcohol?: Never 3. How often do you have six or more drinks on one occasion?: Never Total Score: 0 MEGAN-7 AMB Questionnaire MEGAN-7 Date MEGAN - 7 assessed: 06/24/25 Feeling nervous, anxious, or on edge: 3 = Nearly every day Not being able to stop or control worryin = More than half the days Worrying too much about different things: 3 = Nearly every day Trouble relaxin = More than half the days Being so restless that it is hard to sit still: 1 = Several days Becoming easily annoyed or irritable: 2 = More than half the days Feeling afraid as if something awful might happen: 2 = More than half the days Total MEGAN-7 score (0-4 normal; 5-9 mild; 10-14 moderate; 15-21 severe): 15 Source: Developed by Drs. Steven Mason, Daniel Dave and colleagues, with an educational cecil from [employer]. Review of Systems Const Denies body aches, Denies chills, Denies fever(s), Denies headache(s) and Denies poor appetite Eyes Reports no additional complaints ENT Denies dysphagia, Denies dizziness, Denies headache(s) and Denies odynophagia Card Denies chest pain, Denies syncope, Denies edema, Denies irregular heart rhythm, Denies lightheadedness and Denies dyspnea Resp Denies cough and Denies dyspnea GI Denies abdominal pain, Denies constipation, Denies dysphagia, Denies diarrhea, Denies nausea, Denies odynophagia and Denies vomiting Reports no additional complaints Musc Reports back pain (Ongoing lower back-mild curvature of the spine) Skin/Breast Reports system reviewed and no additional complaints, except as documented Neuro Denies dizziness, Denies syncope and Denies headache(s) Psych Reports anxiety, Reports depression, Denies homicidal ideation and Denies suicidal ideation Physical exam (Primary Care) Vital Signs: Last Vital Signs Temp 93.7 F L 06/24/25 10:20 Pulse 107 H 06/24/25 10:20 Resp 18 06/24/25 10:20 BP 112/68 06/24/25 10:20 Pulse Ox 98 06/24/25 10:20 Oxygen Delivery Method Room Air 06/24/25 10:20 BMI result Body Mass Index 27.0 Tobacco/Smoking Status: Tobacco use Status Tobacco use date assessed 06/24/25 06/24/25 10:26 Patient Tobacco Use Status Former Tobacco user 06/24/25 10:26 Tobacco use type Cigarette 06/24/25 10:26 e-Cigarette/Vaping Use Never Used 06/24/25 10:26 PHQ-9: PHQ-9 Score PHQ-9: Total score 06/24/25 11:03 Depression Screening Interpretation: Positive Thrive Assessment: Date of Thrive Assessment Date Thrive assessed 06/24/25 06/24/25 10:26 Currently or been in a relationship where the following occur: No concerns reported Const General: cooperative, healthy appearing, comfortable and no acute distress Orientation/consciousness: patient oriented x3 HENMT Head: Yes normocephalic Ears: hearing grossly normal bilaterally General nose exam: Normal external nose present Eyes General: appearance normal, both eyes and all related structures Conjunctivae: conjunctivae normal Neck Neck: Yes full ROM and Yes no lymphadenopathy Resp Effort & Inspection: normal respiratory effort Auscultation: clear to auscultation bilaterally, no crackles, no rales, no rhonchi and no wheezes Cardio Rate: regular rate Rhythm: regular rhythm Skin General skin exam: no rashes or lesions noted Neuro General: patient oriented x3 Gait exam (Neuro): Normal gait present Extrem General: Yes normal to inspection, Yes full ROM and No edema Left lower extremity: lower leg (Varicose veins) Psych Appearance: grossly normal Mental Status: mental status grossly normal Speech and movement: Normal speech and movement present Affect: normal affect Attitude: cooperative Insight: Good insight present (Psych) Judgement: Good judgement present (Psych) Coding Level of Care Code Est Pt Level 3 (85753) Diagnoses Anxiety and depression F41.9; F32.A Elevated LDL cholesterol level E78.00 Vitamin D deficiency E55.9 Perimenopausal symptoms N95.1 Chronic right-sided low back pain, unspecified whether sciatica present M54.50; G89.29 Chronicity: chronic Back pain laterality: right Sciatica presence: unspecified whether sciatica present Time Spent (min) 33 Assessment & Plan Assessment & Plan (1) Anxiety and depression: Code(s): F41.9 - Anxiety disorder, unspecified; F32.A - Depression, unspecified Category: Medical Plan: The patient is seen a therapist and is awaiting to see psychiatrist. The patient has been tried on many SSRIs in the past with no relief of her symptoms. She purchased venlafaxine ER 37.5 mg daily online after this has proven to work for her mother. The patient has been taking his medication and has been feeling much better in his requesting provider to prescribe this medication for her, so she could stop paying out of pocket. Patient denies SI/HI. The patient also has chronic low back pain and might benefit from dual effect of this medication. This medication was ordered for the patient. We will have the patient follow up in 3 months. (2) Elevated LDL cholesterol level: Code(s): E78.00 - Pure hypercholesterolemia, unspecified Category: Medical Plan: Patient last LDL was 103 and she has been making dietary changes since. Reinforced low-cholesterol diet and activity as tolerated (3) Vitamin D deficiency: Code(s): E55.9 - Vitamin D deficiency, unspecified Category: Medical Plan: Continue vitamin-D OTC daily (4) Perimenopausal symptoms: Code(s): N95.1 - Menopausal and female climacteric states Category: Medical Plan: States that she met with OBGYN sleeping room cleaner and she recommended an online provider who prescribed DHEA 25 mg capsule daily and a combination cream of estrogen/progesterone 5 4/200 mg/mL apply 2 pumps topically to skin and rubbing once a day. The patient has not started these therapies as yet in his requesting to have some blood work completed. FSH, luteinizing, DHEA, estradiol, anti-mullerian levels to further evaluate were ordered on her previous visit. Anti mullerian hormone was 0.58, estradiol 261, FSH 3.7, low denies any hormone 5.6, DHEA 98. The patient is seeking DHEA 25 mg daily OTC. We will repeat these levels in 3 months. Otherwise, the patient is feeling much better so no other intervention needed at this time. (5) Low back pain: Code(s): M54.50 - Low back pain, unspecified Category: Medical Qualifiers: Chronicity: chronic Back pain laterality: right Sciatica presence: unspecified whether sciatica present Qualified Code(s): M54.50 - Low back pain, unspecified; G89.29 - Other chronic pain Plan: Avoid bed rest (including sitting in bed) and to simply limit painful activities; improvement usually occurs within a few weeks May use cool packs; may alternate cold and hot packs Exercises a bennett (e.g., walking, swimming, cycling) as soon as possible, starting with 5-10 min and walk-in up to 20-30 minute q.day Abdominal core and back strengthening exercises may help to prevent future problems Orders: Orders DHEA Sulfate 3 Months E55.9 - Vitamin D deficiency, unspecified, E78.00 - Pure hypercholesterolemia, unspecified, F32.A - Depression, unspecified, F41.9 - Anxiety disorder, unspecified, I83.812 - Varicose veins of left lower extremity with pain, R00.2 - Palpitations, R07.82 - Intercostal pain Comprehensive [place]. Panel Fast 3 Months E55.9 - Vitamin D deficiency, unspecified, E78.00 - Pure hypercholesterolemia, unspecified, F32.A - Depression, unspecified, F41.9 - Anxiety disorder, unspecified, I83.812 - Varicose veins of left lower extremity with pain, R00.2 - Palpitations, R07.82 - Intercostal pain TSH reflex Free T4 3 Months E55.9 - Vitamin D deficiency, unspecified, E78.00 - Pure hypercholesterolemia, unspecified, F32.A - Depression, unspecified, F41.9 - Anxiety disorder, unspecified, I83.812 - Varicose veins of left lower extremity with pain, R00.2 - Palpitations, R07.82 - Intercostal pain Lipid Panel 3 Months E55.9 - Vitamin D deficiency, unspecified, E78.00 - Pure hypercholesterolemia, unspecified, F32.A - Depression, unspecified, F41.9 - Anxiety disorder, unspecified, I83.812 - Varicose veins of left lower extremity with pain, R00.2 - Palpitations, R07.82 - Intercostal pain UA CC w/rflx Micro + Cult 3 Months E55.9 - Vitamin D deficiency, unspecified, E78.00 - Pure hypercholesterolemia, unspecified, F32.A - Depression, unspecified, F41.9 - Anxiety disorder, unspecified, I83.812 - Varicose veins of left lower extremity with pain, R00.2 - Palpitations, R07.82 - Intercostal pain Medications: New venlafaxine ER 37.5 mg PO DAILY 90 caps 3RF
== END 2025-06-24 11:10 | disposition home or self-care (01) ==
LOC: HO.HMCH 10:18
DX: F41.9 Anxiety disorder, unspecified (principal); F32.A Depression, unspecified; E78.00 Pure hypercholesterolemia, unspecified; E55.9 Vitamin D deficiency, unspecified; N95.1 Menopausal and female climacteric states; M54.50 Low back pain, unspecified; G89.29 Other chronic pain

== ENCOUNTER → 2025-06-24 10:17 | Outpatient (BNVA) | payer MEDICARE, MEDICAID, SELFPAY | DX: F41.9 Anxiety disorder, unspecified (principal); F32.A Depression, unspecified; E55.9 Vitamin D deficiency, unspecified; E78.00 Pure hypercholesterolemia, unspecified; N95.1 Menopausal and female climacteric states; M54.50 Low back pain, unspecified; G89.29 Other chronic pain | CPT/HCPCS: 99212 ==

== ENCOUNTER 2025-08-17 10:30 | Emergency (ER) | payer MEDICARE, MEDICAID, SELFPAY ==
--- NOTE | ~2025-08-17 | XR_ITS ---
EXAMINATION: XR CHEST 1 VIEW HISTORY: pain COMPARISON: There are no prior studies available for comparison. FINDINGS: A single AP portable view of the chest performed at 10:53 AM is submitted. The lungs are expanded and clear. There is no pleural effusion, pneumothorax, or pulmonary vascular congestion. The heart is normal in size. The bones are intact. XR/XR chest 1V IMPRESSION: Clear lungs. Electronically signed by: Steven Clayton MD 08/17/2025 11:07 AM EDT
--- NOTE | 2025-08-17 10:32 | ECG_ITS ---
Test Reason : chest pain Blood Pressure : */* mmHG Vent. Rate : 111 BPM Atrial Rate : 111 BPM P-R Int : 130 ms QRS Dur : 76 ms QT Int : 346 ms P-R-T Axes : 62 81 -35 degrees QTcB Int : 470 ms Sinus tachycardia T wave abnormality, consider inferior ischemia Abnormal ECG When compared with ECG of 05-Sep-2022 11:31, Vent. rate has increased by 42 bpm T wave inversion now evident in Inferior leads Nonspecific T wave abnormality now evident in Lateral leads Referred By: Generic ED Physician Electronically Signed By: NOEMI CHERY
[2025-08-17 10:45] VITALS: BP 127/79; PULSE 117; RESP 16; TEMP 36.6; O2SAT 94; BMI 28.5
--- NOTE | 2025-08-17 10:51 | ED.CHESTPAIN ---
HPI - Chest Pain General Chief Complaint: Chest Pain Stated Complaint: possible heart attack Time Seen by Provider: 08/17/25 10:44 Source: patient and old records reviewed Mode of arrival: ambulatory Limitations: no limitations History of Present Illness ED Provider: JAKE MCCORD narrative: 40 yo male with PMH of anxiety, depression, palpitations, bipolar disorder, esophagitis, here with c/o having a bad panic attack on Sunday subsequently had chest pain which she has had before. She waited it out. The next day she started to note L neck pain, L arm pain, hurts to move and tried edibles but no relief. She is on estrogen/progesterone patches. She has not traveled, no URI. She has no known cardiac disease. She notes pain is still present particularly when she moves. No dyspnea reported. MD complaint: chest pain Onset (ago): day(s) (since Sunday) Timing of current episode: constant Prior episodes: Yes Onset: other Pain location: left chest Pain radiation: left arm and neck Severity: moderate Quality: aching and sharp Relieving factors: nothing Exacerbating factors: movement Context: other Treatment prior to arrival: none Related Data Home Medications ?Medication ?Instructions ?Recorded ?Confirmed Estrogen/progesterone topical 03/29/25 06/24/25 prasterone (DHEA) 50 mg capsule 50 mg PO DAILY 03/29/25 06/24/25 (DHEA) Previous Rx's ?Medication ?Instructions ?Recorded venlafaxine 37.5 mg 37.5 mg PO DAILY #90 caps 06/24/25 capsule,extended release 24 hr diazepam 5 mg tablet (Valium) 5 mg PO BID PRN muscle spasm #8 08/17/25 tabs Allergies Allergy/AdvReac Type Severity Reaction Status Date / Time amoxicillin Allergy Intermediate Rash Verified 08/17/25 10:47 famotidine Allergy Intermediate Chest Pain Verified 08/17/25 10:47 Latex, Natural Rubber Allergy Mild rash Verified 08/17/25 10:47 Review of Systems Review of Systems: Constitutional : No Weight loss, No Fever, No Chills ENT/Mouth : No sore throat, No Rhinorrhea Eyes: No Eye Pain, No Swelling Cardiovascular : pos Chest Pain, no SOB, no Dyspnea on Exertion, No Orthopnea, No Edema, No Palpitations Respiratory : No Cough, No Sputum Gastrointestinal : pos Nausea, No Vomiting, No Diarrhea, No abdominal Pain, No Hematochezia, No Melena Genitourinary : No Dysuria, No Urinary Frequency Musculoskeletal : No joint pain, No Myalgias, No Joint Swelling Skin : No Skin Lesions, No rash Neuro : No Weakness, No Numbness, No Dizziness, No Headache All other systems reviewed and are negative [facility] Past Medical History Attestation statement: The following information was validated with the patient. Source: old records reviewed Medical History Otero's esophagus Bipolar disorder Anxiety and depression Intestinal polyps Surgical History H/O tubal ligation Family History Family History Maternal Grandmother Leukemia Maternal Grandfather Emphysema lung Paternal Grandmother Alcoholism Mother No problems noted. Father Substance abuse Maternal Uncle Myocardial infarct Social History Social History Housing: Apartment Patient Tobacco Use Status: Former Tobacco user Tobacco use type: Cigarette e-Cigarette/Vaping Use: Never Used Second Hand Smoke Exposure: Yes Substance Use Type: Marijuana Advance Directives: No Advance Directives Information Provided: Yes service: No Current occupational status: unemployed Cognitive needs: No Hearing needs: No Vision needs: Yes Physical Exam Vital Signs: Vital Signs: Last Vital Signs Temp 97.8 F 08/17/25 10:45 Pulse 117 H 08/17/25 10:45 Resp 16 08/17/25 10:45 BP 130/41 L 08/17/25 11:31 Pulse Ox 94 08/17/25 10:45 O2 Del Method Room Air 08/17/25 10:45 BMI result Body Mass Index 28.5 Appearance: Alert. Oriented X3. No acute distress. Eyes: Pupils equal, round and reactive to light. ENT: Pharynx normal. Neck: Normal inspection. L neck ttp reproduces pain, trapezius L side ttp distal NV intact CVS: Normal heart rate and rhythm. Pulses normal. Respiratory: No respiratory distress. Breath sounds normal. Abdomen: Soft and nontender. Skin: Skin warm and dry. Normal skin color. Normal skin turgor. Extremities: No lower extremity edema. No calf ttp Neuro: Oriented X 3. No motor deficit. No sensory deficit. CN2-12 intact Course Course Course Narrative: BPs were checked in forearms suspect some error distal pulses bounding Medications Administered Generic Name Dose Route Start Last Admin Trade Name Cory PRN Reason Stop Dose Admin Magnesium Sulfate 2 gm in 50 mls @ 25 mls/hr 08/17/25 10:59 08/17/25 11:29 Magnesium Sulfate/H2o IV 08/17/25 12:58 25 mls/hr ONCE ONE Administration Discontinued Medications Generic Name Dose Route Start Last Admin Trade Name Cory PRN Reason Stop Dose Admin Diazepam 5 mg 08/17/25 10:58 08/17/25 11:06 Diazepam 5 Mg Tablet PO 08/17/25 10:59 5 mg ONCE ONE Administration Ketorolac Tromethamine 15 mg 08/17/25 10:58 08/17/25 11:33 Ketorolac Tromethamine 15 Mg/Ml Vial IVPUSH 08/17/25 10:59 15 mg ONCE ONE Administration Medical Decision Making Medical Decision Making [facility] Narrative: 40 yo male with PMH of anxiety, depression, palpitations, bipolar disorder, esophagitis, here with c/o atypical chest pain and reproduceable MSK pain at this time EKG, trop x 1, ddimer, BP in both arms - treat with toradol and PO valium. Diff MSK, strain, low prob VTE and ACS Differential Diagnosis Differential Diagnoses: The differential diagnosis associated with the presentation includes neck pain, strain, low prob VTE, no hx of ACS, strain, spasm Admission/Observation Consideration of admission/observation: Escalation of care including admission/observation considered symmetric pulses, atypical chest pain, trop flat, ddimer negative stable for DC home Lab Data [facility] Lab Attestation statement: I reviewed the patient's lab results. 08/17/25 10:56 08/17/25 10:56 Labs: Lab Results 08/17/25 Range/Units 10:56 WBC 5.9 (4.8-10.8) X10*3/uL RBC 4.83 (4.20-5.50) X10*6/uL Hgb 14.3 (12.0-16.0) g/dl Hct 41.5 (37.0-47.0) % MCV 85.9 (80.0-98.0) fL MCH 29.6 (27.0-33.0) pg MCHC 34.5 (31.0-35.0) g/dl RDW 13.1 (11.0-16.0) % Plt Count 255 (160-400) X10*3/uL MPV 9.6 (9.4-12.3) fL Immature Gran % (Auto) 0.2 (0.0-0.4) % Neut % (Auto) 57.4 (45-73) % Lymph % (Auto) 32.3 (20-40) % Douglas % (Auto) 8.2 (2-11) % Eos % (Auto) 1.2 (0-4) % Baso % (Auto) 0.7 (0-2) % Lymph # (Auto) 1.9 (1.2-4.9) X10*3/uL Douglas # (Auto) 0.5 (0.1-1.2) X10*3/uL Eos # (Auto) 0.1 (0.0-0.4) X10*3/uL Baso # (Auto) 0.0 (0.0-0.2) X10*3/uL Abs Immat Gran (auto) 0.01 (0.00-0.03) X10*3/uL Absolute Neuts (auto) 3.4 (2.0-8.3) x10*3/uL Absolute Nucleated RBC 0.000 (0.0-0.012) X10*3/uL Nucleated RBC % (auto) 0.0 (0.0-0.2) /100WBC PT 10.4 L (10.9-12.4) SEC INR 0.9 (0.9-1.1) D-Dimer High Sensitivty 159 NG/ML Sodium 140 (135-145) mmol/L Potassium 3.8 (3.3-5.1) mmol/L Chloride 110 H (96-108) mmol/L Carbon Dioxide 23 (22-29) mmol/L Anion Gap 11 L (12-20) BUN 15 (9-16) mg/dL Creatinine 0.67 (0.5-1.4) mg/dL Estim Creat Clear Calc 117.9 Estimated GFR > 60 Random Glucose 105 (60-115) mg/dL Calcium 8.9 (8.4-10.2) mg/dL Magnesium 2.0 (1.6-2.6) mg/dL Total Bilirubin 0.3 (0.0-1.0) mg/dL Direct Bilirubin 0.1 (0.0-0.5) mg/dL AST 25 (5-31) U/L ALT 25 (0-31) U/L Alkaline Phosphatase 38 L (39-117) U/L Troponin I High Sens < 2.7 (<3.5-17.0) ng/L Total Protein 7.2 (6.5-8.0) g/dL Albumin 4.6 (3.5-5.0) g/dL Beta HCG, Quant < 2 mIU/mL Independent Interpretation I performed an independent interpretation of an: EKG and Plain X-Ray (normal ) Interpretation: Rate: 111 Rhythm: sinus tach [place]: normal Normal P waves. Normal JENNIFER. Normal QRS complex. ST T wave : no MILLER, t wave inversions II, III, aVF qTC: 470 prior studies: hx of T wave inversions in III The study has been interpreted contemporaneously by me. . Radiology Impression Discussion of test interpretation with radiology: I have reviewed the radiologist's reading. External Record Review External record reviewed: Outpatient record Prescription Management I considered prescription management with: Other Discharge Plan Discharge Clinical Impression: Atypical chest pain, T wave inversion in EKG, Muscle spasm Patient Disposition: Home, Self-Care Instructions: Chest Pain (ED) Additional Instructions: EKG showed some mild t wave inversion in inf leads though you have had this before in past to see variation labs reassuring CXR normal negative troponin and negative ddimer please follow up with your pen maker and primary care as soon as possible return for any worsening symptoms or concerns no motrin or ibuprofen for 8 hours Prescriptions: New diazepam [Valium] 5 mg tablet 5 mg PO BID PRN (Reason: muscle spasm) Qty: 8 0RF Rx Instructions: partial fill is okay No Action venlafaxine 37.5 mg capsule,extended release 24hr 37.5 mg PO DAILY Qty: 90 3RF DHEA 50 mg capsule 50 mg PO DAILY Estrogen/progesterone topical Rx Instructions: CRM 5/200 mg/ml, apply 2 pump topically to skin once a day Print Language: Dutch
[2025-08-17 11:02] LABS: Hematocrit 41.5 % (37.0-47.0); Hemoglobin 14.3 g/dl (12.0-16.0); Imm Gran Abs Auto 0.01 X10*3/uL (0.00-0.03); Imm Gran Pct Auto 0.2 % (0.0-0.4); Lymphocytes Absolute Auto 1.9 X10*3/uL (1.2-4.9); MANUAL DIFF FLAG NO; Mean Corpuscular HGB Conc 34.5 g/dl (31.0-35.0); Mean Corpuscular Hemoglobin 29.6 pg (27.0-33.0); Mean Corpuscular Volume 85.9 fL (80.0-98.0); NRBC Abs Auto 0.000 X10*3/uL (0.0-0.012); NRBC Pct Auto 0.0 /100WBC (0.0-0.2); Platelet Count 255 X10*3/uL (160-400); Red Blood Count 4.83 X10*6/uL (4.20-5.50); White Blood Count 5.9 X10*3/uL (4.8-10.8)
[2025-08-17 11:07] LABS: INTERNATIONAL NORM RATIO 0.9 (0.9-1.1); Prothrombin Time 10.4 SEC (10.9-12.4)
[2025-08-17 11:25] LABS: Alanine Aminotransferase 25 U/L (0-31); Albumin Level 4.6 g/dL (3.5-5.0); Alkaline Phosphatase 38 U/L (39-117); Anion Gap 11 (12-20); Aspartate Amino Transferase 25 U/L (5-31); Blood Urea Nitrogen 15 mg/dL (9-16); Calcium 8.9 mg/dL (8.4-10.2); Carbon Dioxide 23 mmol/L (22-29); Chloride 110 mmol/L (96-108); Creatinine Clr Calc Pharmacy 117.9; Estimated Glomerular Filt Rate > 60; Magnesium 2.0 mg/dL (1.6-2.6); Potassium 3.8 mmol/L (3.3-5.1); Sodium 140 mmol/L (135-145); Total Protein 7.2 g/dL (6.5-8.0); Troponin-I High Sensitivity < 2.7 ng/L (<3.5-17.0)
[2025-08-17 11:28] VITALS: BP 129/92
[2025-08-17] MEDS: Magnesium Sulfate/H2O 2 GM/50 ML PIGGYBACK IV (11:29)
[2025-08-17 11:31] VITALS: BP 130/41
[2025-08-17 11:32] LABS: D Dimer High Sensitivity 159 NG/ML
[2025-08-17 12:02] VITALS: BP 130/41; PULSE 95; RESP 16; TEMP -17.7; TEMP 0; O2SAT 95
== END 2025-08-17 12:04 | disposition home or self-care (01) ==
PROVIDERS: Emergency Provider Emergency Medicine
DX: R07.9 Chest pain, unspecified (principal); M62.838 Other muscle spasm; R94.31 Abnormal electrocardiogram [ECG] [EKG]; R00.2 Palpitations; R00.0 Tachycardia, unspecified; F41.9 Anxiety disorder, unspecified
CPT/HCPCS: 36415; 71045; 80048; 80076; 83735; 84484; 84702; 85025; 85379; 85610; 93005; 96365; 96375; 99284; 99285; J1885; J3475

== ENCOUNTER → 2025-08-17 10:32 | Outpatient (BNV) | payer MEDICARE, MEDICAID, SELFPAY | PROVIDERS: Emergency Provider Emergency Medicine; Visit Provider Internal Medicine | DX: R00.1 Bradycardia, unspecified (principal) | CPT/HCPCS: 93010 ==

== ENCOUNTER → 2025-08-17 10:43 | Outpatient (BNV) | payer MEDICARE, MEDICAID, SELFPAY | PROVIDERS: Emergency Provider Emergency Medicine; Visit Provider Radiology Diagnostic Radiology | DX: R07.9 Chest pain, unspecified (principal) | CPT/HCPCS: 71045 ==

== ENCOUNTER 2025-08-20 10:30 | Outpatient (AMB) | payer MEDICARE, MEDICAID, SELFPAY ==
[2025-08-20 10:57] VITALS: BP 104/60; PULSE 99; RESP 18; TEMP 36.2; O2SAT 99; BMI 28.4
--- NOTE | 2025-08-20 10:57 | A.OFFPC_ITS ---
Vital Signs 08/20/25 10:57 Height 5 ft 6 in Weight 176 lb BMI 28.4 BP 104/60 Blood Pressure Location Lt brachial Position Sitting Respiration 18 Pulse 99 Pulse Source Pulse Oximeter Temp 97.1 F Temp Source Temporal Artery Scan Pulse Oximetry (%) 99 Oxygen Delivery Method Room Air Intake Visit Reasons: [facility] [place] 08/17 Possible Heart Attack Day Trader Required: No Accompanied by: Self / Same As Patient Allergies amoxicillin Allergy (Intermediate, Verified 08/23/25 23:35) Rash famotidine Allergy (Intermediate, Verified 08/23/25 23:35) Chest Pain Latex, Natural Rubber Allergy (Mild, Verified 08/23/25 23:35) rash Medication List - Last Reconciled 08/20/25 by BENNETT Zapata diazepam (Valium) 5 mg PO BID PRN [Estrogen/progesterone CRM 5/200 mg/ml, apply 2 pump topically to skin once a day] prasterone (DHEA) (DHEA) 50 mg PO DAILY venlafaxine ER 37.5 mg PO DAILY Tobacco use date assessed: 08/20/25 Dental Screening Dental Screen Date: 08/20/25 Did you have a dental visit in the last 12 months?: No Did you have a dental problem in the last 6 months where you did not have access to dental care?: No Was dental information given to patient?: No HPI [facility] [place] 08/17 Possible Heart Attack HPI Details The patient is a 40-year-old female presenting for evaluation of left shoulder and neck pain and to discuss a recent emergency department visit. She experienced a severe panic attack with chest pain on Sunday the , which was followed by 10 days of muscular pain in her chest, left arm, shoulder blade, and neck. The pain was exacerbated after she moved incorrectly, causing a shooting pain down her arm, which she describes as unbearable and suggestive of a pinched nerve. The pain is localized mostly to the shoulder and neck, is worse when the arm is dangling or when she lies on it, and has disrupted her sleep for nearly two weeks. Due to the pain, she presented to an urgent care center, where an EKG showed inverted T-waves, a finding she has a history of. She was sent to the emergency room, where a repeat EKG showed mild tachycardia. The ER workup included a negative D-dimer, a normal chest X-ray, and a diagnosis of musculoskeletal chest pain. They recommended a follow-up with cardiology, for which she is pending an appointment. The patient has a history of anxiety, PTSD, and panic attacks, which have previously prompted ER visits. She has been on venlafaxine 37.5 mg for 2.5 months, which has provided significant improvement. She also uses an estrogen and progesterone cream and was recently prescribed Valium at urgent care. A prior cardiac workup in 2022 included an echo and a 3-day Holter monitor, which showed only few PVCs and no other significant arrhythmias. She also reports frequent, random muscle flutters all over her body and frequent urination with high fluid intake. FOR[facility] Medical History Otero's esophagus Bipolar disorder Anxiety and depression Intestinal polyps Surgical History H/O tubal ligation Family History Maternal Grandmother Leukemia Maternal Grandfather Emphysema lung Paternal Grandmother Alcoholism Mother No problems noted. Father Substance abuse Maternal Uncle Myocardial infarct Social History Housing: Apartment Patient Tobacco Use Status: Former Tobacco user Tobacco use type: Cigarette e-Cigarette/Vaping Use: Never Used Second Hand Smoke Exposure: Yes Substance Use Type: Marijuana service: No Current occupational status: unemployed Cognitive needs: No Hearing needs: No Vision needs: Yes Female Reproductive History Menstrual Age of Menarche: 10 Questionnaire PHQ-9 Over the last 2 weeks, how often have you been bothered by any of the following problems? Depression Screening Interpretation: Positive Depression Screening Done: Yes Source: Developed by Drs. Steven Mason, Gabby Mahajan, Daniel German and colleagues, with an educational cecil from [employer]. Thrive Questionnaire Date Thrive assessed: 12/08/24 I am a: Patient What is your living situation today?: I choose not to answer this question Within the past 12 months, did the food you bought not last and you didn't have the money to get more?: I choose not to answer this question Within the past 12 months, did you worry whether your food would run out before you got money to buy more?: Sometimes True Do you have trouble paying for medicines?: Yes Do you have trouble getting transportation to medical appointments?: Yes Do you have trouble paying your heating and electricity bill?: I choose not to answer this question Do you have trouble taking care of your child, family member or friend?: No Do you have trouble with day-to-day activities such as bathing, preparing meals, shopping, managing finances, etc.?: Yes Are you currently unemployed and looking for a job?: No Are you interested in more education?: Yes Please select the resources that you would like help with: None Currently or been in a relationship where the following occur: No concerns reported THRIVE Score: 2 MEGAN-7 AMB Questionnaire MEGAN-7 Date MEGAN - 7 assessed: 06/24/25 Source: Developed by Drs. Steven Mason, Gabby Mahajan, Daniel German and colleagues, with an educational cecil from [employer]. Review of Systems Const Denies body aches, Denies chills, Denies fever(s), Denies headache(s) and Denies poor appetite Eyes Reports no additional complaints ENT Denies dysphagia, Denies dizziness, Denies headache(s), Reports neck pain and Denies odynophagia Card Denies chest pain, Denies syncope, Denies edema, Denies irregular heart rhythm, Denies lightheadedness and Denies dyspnea Resp Denies cough and Denies dyspnea GI Denies abdominal pain, Denies constipation, Denies dysphagia, Denies diarrhea, Denies nausea, Denies odynophagia and Denies vomiting Reports no additional complaints Musc Reports arthralgias (Left shoulder), Reports neck pain, Reports numbness (Fingers) and Reports radiating pain into limb (Left arm) Skin/Breast Reports system reviewed and no additional complaints, except as documented Neuro Denies dizziness, Denies syncope, Denies headache(s) and Reports numbness (Fingers) Psych Reports anxiety, Reports depression, Denies homicidal ideation and Denies suicidal ideation Physical exam (Primary Care) Vital Signs: Last Vital Signs Temp 97.1 F 08/20/25 10:57 Pulse 99 08/20/25 10:57 Resp 18 08/20/25 10:57 BP 104/60 08/20/25 10:57 Pulse Ox 99 08/20/25 10:57 Oxygen Delivery Method Room Air 08/20/25 10:57 BMI result Body Mass Index 28.4 Tobacco/Smoking Status: Tobacco use Status Tobacco use date assessed 08/20/25 08/20/25 11:04 Patient Tobacco Use Status Former Tobacco user 08/20/25 11:04 Tobacco use type Cigarette 08/20/25 11:04 e-Cigarette/Vaping Use Never Used 08/20/25 11:04 Depression Screening Interpretation: Positive Thrive Assessment: Date of Thrive Assessment Date Thrive assessed 12/08/24 08/20/25 11:04 Currently or been in a relationship where the following occur: No concerns reported Const General: cooperative, healthy appearing, comfortable and no acute distress Orientation/consciousness: patient oriented x3 HENMT Head: Yes normocephalic Ears: hearing grossly normal bilaterally General nose exam: Normal external nose present Eyes General: appearance normal, both eyes and all related structures Conjunctivae: conjunctivae normal Neck Neck: Yes full ROM and Yes no lymphadenopathy Resp Effort & Inspection: normal respiratory effort Auscultation: clear to auscultation bilaterally, no crackles, no rales, no rhonchi and no wheezes Cardio Rate: regular rate Rhythm: regular rhythm Skin General skin exam: no rashes or lesions noted Neuro General: patient oriented x3 Gait exam (Neuro): Normal gait present Extrem General: Yes normal to inspection, Yes full ROM and No edema Left lower extremity: lower leg (Varicose veins) Psych Appearance: grossly normal Mental Status: mental status grossly normal Speech and movement: Normal speech and movement present Affect: normal affect Attitude: cooperative Insight: Good insight present (Psych) Judgement: Good judgement present (Psych) Coding Level of Care Code Est Pt Level 3 (34975) Diagnoses Anxiety and depression F41.9; F32.A Neck pain M54.2 Left shoulder pain, unspecified chronicity M25.512 Chronicity: unspecified Finger numbness R20.0 Intercostal pain R07.82 Chest pain type: intercostal pain Time Spent (min) 34 Assessment & Plan Assessment & Plan (1) Anxiety and depression: Code(s): F41.9 - Anxiety disorder, unspecified; F32.A - Depression, unspecified Category: Medical Plan: The patient is seen a therapist and is awaiting to see psychiatrist. The patient has been tried on many SSRIs in the past with no relief of her symptoms. She purchased venlafaxine ER 37.5 mg daily online after this has proven to work for her mother. The patient has been taking his medication and has been feeling much better in his requesting provider to prescribe this medication for her, so she could stop paying out of pocket. Patient denies SI/HI. The patient also has chronic low back pain and might benefit from dual effect of this medication. This medication was ordered for the patient. We will have the patient follow up in 3 months. (2) Neck pain: Code(s): M54.2 - Cervicalgia Category: Medical Plan: The patient's left shoulder, neck, and arm pain is assessed to be musculoskeletal in nature, likely representing significant muscle tension, possibly exacerbated by her sleeping position. To rule out underlying pathology, an X-ray of the left shoulder will be ordered. A referral will be placed for physical therapy to help loosen the muscles and provide therapeutic exercises. A prescription for cyclobenzaprine will be provided for use at bedtime as a muscle relaxant. Use of anti-inflammatory medication such as Motrin was discussed, although Tylenol is an alternative given the patient's concern about interactions with venlafaxine. (3) Left shoulder pain: Code(s): M25.512 - Pain in left shoulder Category: Medical Qualifiers: Chronicity: unspecified Qualified Code(s): M25.512 - Pain in left shoulder Plan: Same as above (4) Finger numbness: Code(s): R20.0 - Anesthesia of skin Category: Medical Plan: The patient was referred to physical therapy. May assist for the if symptoms persist after physical therapy. (5) Chest pain: Code(s): R07.9 - Chest pain, unspecified Category: Medical Qualifiers: Chest pain type: intercostal pain Qualified Code(s): R07.82 - Intercostal pain Plan: The patient was evaluated at urgent care and the ER for cardiac concerns after an EKG showed inverted T-waves, which is a chronic finding. Review of a 2022 Holter monitor showed benign findings. The patient will proceed with the cardiology follow-up as recommended by the ER for comprehensive evaluation and r eassurance. Orders: Orders XR shoulder LT min 2V 08/20/25 M25.512 - Pain in left shoulder PT Evaluation and Treatment 08/20/25 M25.512 - Pain in left shoulder, M54.2 - Cervicalgia Medications: New cyclobenzaprine 10 mg PO BEDTIME PRN 30 tabs 1RF muscle spasm
== END 2025-08-20 11:48 | disposition home or self-care (01) ==
LOC: HO.HMCH 10:30
DX: F41.9 Anxiety disorder, unspecified (principal); F32.A Depression, unspecified; M54.2 Cervicalgia; M25.512 Pain in left shoulder; R20.0 Anesthesia of skin; R07.82 Intercostal pain

== ENCOUNTER 2025-08-20 10:30 | Outpatient (REF) | payer MEDICARE, MEDICAID, SELFPAY ==
--- NOTE | ~2025-08-20 | XR_ITS ---
EXAMINATION: XR SHOULDER 2 OR MORE VIEWS LEFT HISTORY: M25.512 - Pain in left shoulder COMPARISON: There are no prior studies available for comparison. FINDINGS: Four views of the left shoulder are submitted. Osseous mineralization is normal. There is no fracture or dislocation. The glenohumeral and acromioclavicular joint spaces are preserved. The soft tissues are unremarkable. XR/XR shoulder LT min 2V IMPRESSION: Unremarkable examination of the left shoulder. Electronically signed by: Steven Clayton MD 08/20/2025 12:20 PM EDT
== END 2025-08-20 10:31 | disposition home or self-care (01) ==
LOC: HO.XRAY 10:30
DX: M25.512 Pain in left shoulder (principal); F41.9 Anxiety disorder, unspecified; F32.A Depression, unspecified; M54.2 Cervicalgia; R20.0 Anesthesia of skin; R07.82 Intercostal pain; Z79.899 Other long term (current) drug therapy
CPT/HCPCS: 73030; 99212

== ENCOUNTER → 2025-08-20 12:02 | Outpatient (BNV) | payer MEDICARE, MEDICAID, SELFPAY | PROVIDERS: Visit Provider Radiology Diagnostic Radiology | DX: M25.512 Pain in left shoulder (principal) | CPT/HCPCS: 73030 ==

== ENCOUNTER 2025-10-01 08:54 | Outpatient (AMB) | payer MEDICARE, MEDICAID, SELFPAY ==
--- NOTE | 2025-10-01 09:08 | A.OFFVIS_ITS ---
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 She visited the emergency room on 08/17/2025 after experiencing a panic attack which led to sharp chest pain, followed by weeks of residual aching muscular pain down her left arm and chest that was sore to touch. Her workup in the ER, including EKG, troponin, and D- dimer, was normal, and the discomfort was attributed to musculoskeletal causes. The patient reports a long-standing history of sharp, stabbing chest pain in the lower left breast area, which she typically associates with anxiety. She also describes a separate, deep, fluttery sensation in the mid-chest, occurring randomly about 2-3 times a year, which has become more extreme and is associated with dizziness. This fluttering is what prompted a prior Holter monitor evaluation. The chest pain is rarely associated with physical activity, though she does note becoming winded easily with exertion. Her past medical history is significant for anxiety, depression, bipolar disorder, and Otero's esophagus. She is managed with venlafaxine for her anxiety and is also on hormone therapy for perimenopause. She reports smoking marijuana since age 17 to manage stomach issues and anxiety. Prior cardiac testing includes an echocardiogram on 08/21/2023 which showed a normal ejection fraction of 60% with no valve or wall motion abnormalities. A 3- day Holter monitor on 05/08/2023 showed sinus rhythm with an average heart rate of 77 bpm, rare supraventricular and ventricular ectopy, and her symptoms correlated with sinus rhythm and sinus tachycardia. [facility] Medical History Otero's esophagus Bipolar disorder Anxiety and depression Intestinal polyps Surgical History H/O tubal ligation Family History Maternal Grandmother Leukemia Maternal Grandfather Emphysema lung Paternal Grandmother Alcoholism Mother No problems noted. Father Substance abuse Maternal Uncle Myocardial infarct Social History Housing: Apartment Patient Tobacco Use Status: Former Tobacco user Tobacco use type: Cigarette e-Cigarette/Vaping Use: Never Used Second Hand Smoke Exposure: Yes Substance Use Type: Marijuana service: No Current occupational status: unemployed Cognitive needs: No Hearing needs: No Vision needs: Yes Female Reproductive History Menstrual Age of Menarche: 10 Review of Systems Const All systems reviewed & are unremarkable except as noted in HPI and below ENT Denies dizziness Card Reports chest pain, Denies chest pain at rest, Denies chest pain with activity, Denies rapid heart rate, Denies pedal edema, Denies edema, Denies leg edema, Denies lightheadedness, Denies palpitations, Denies dyspnea, Denies dyspnea on exertion and Denies orthopnea Resp Denies cough, Denies dyspnea and Denies dyspnea on exertion GI Denies hematochezia and Denies change in stool character Musc Denies abnormal gait, Denies limited range of motion, Denies muscle cramps, Denies muscle weakness, Denies numbness, Denies radiating pain into limb, Denies stiffness and Denies tingling Neuro Denies abnormal gait, Denies dizziness, Denies numbness and Denies tingling Endo Denies palpitations Physical Exam Vital Signs: Last Vital Signs Pulse 96 10/01/25 09:09 BP 108/62 10/01/25 09:09 BMI result Body Mass Index 27.6 Const General: cooperative, healthy appearing, comfortable and no acute distress Orientation/consciousness: patient oriented x3 HEENT Head: Yes normal to inspection Neck Neck: Yes normal visual inspection Resp Effort & Inspection: normal respiratory effort Auscultation: clear to auscultation bilaterally, no crackles, no rales, no rhonchi and no wheezes Cardio Rate: regular rate Rhythm: regular rhythm Heart sounds: S1 normal heart sound present, S2 normal heart sound present, no gallops, no murmurs and no rubs Neuro General: patient oriented x3 Extrem General: Yes normal to inspection, No no pedal edema and No calf tenderness Psych Appearance: grossly normal Mental Status: mental status grossly normal Speech and movement: Normal speech and movement present Assessment & Plan Assessment & Plan (1) Chest pain: Code(s): R07.9 - Chest pain, unspecified Category: Medical Qualifiers: Chest pain type: intercostal pain Qualified Code(s): R07.82 - Intercostal pain Plan: Atypical chest discomfort. Low cardiac risk profile. Her EKG does show nonspecific ST and T-wave abnormality in the inferior lateral leads. She does have some shortness of breath with exertion. For these reasons will order an exercise stress test to ensure no ischemia. Plan to review results with her following the test. Signs and symptoms of true angina discussed. At present ca rdiology will be as needed unless stress test is abnormal. (2) Palpitations: Code(s): R00.2 - Palpitations Category: Medical Plan: Reports of heart palpitations which feels like a flutter in her upper chest and throat that occurs 2 to 3 times a year. Prior Holter monitor did not show any significant findings. Recommended [employer] device for periodic home rhythm checks. These results can be shared with her PCP or this office as needed. (3) Abnormal finding on EKG: Code(s): R94.31 - Abnormal electrocardiogram [ECG] [EKG] Category: Medical Plan: As above (4) Hospital discharge follow-up: Code(s): Z51.89 - Encounter for other specified aftercare Category: Medical Plan: ED notes reviewed Plan I explained to the patient that her recent chest pain, which was painful to touch and was associated with movement, is not cardiac in origin but rather musculoskeletal or from a pinched nerve. I reviewed her EKG from the emergency room, noting nonspecific findings that are not concerning in the setting of musculoskeletal pain. To provide thorough documentation and reassurance, I recommended a treadmill stress test to evaluate her heart's response to exercise. I reassured her that based on her history and a normal echo from two years ago, I do not believe she has a heart problem. Regarding her infrequent fluttering sensations, I explained that a hospital- based monitor would likely not capture an event. I recommended she purchase a [employer] device to record her heart rhythm during these episodes and share the recordings with her doctor or bring them to me if concerning. Follow-up in this clinic will be on an as-needed basis. Orders: Orders CA stress test Today R00.2 - Palpitations, R07.82 - Intercostal pain, R94.31 - Abnormal electrocardiogram [ECG] [EKG] Patient Instructions: - We have ordered a treadmill stress test for you. Our central scheduling department will call you to schedule this appointment. - It is recommended that you purchase a personal heart monitor called [employer]here[employer]Mobile ([employer] [id number]), which is available on [employer] for about $70. - When you feel the fluttering sensation in your chest, use the [employer] device and the farhad on your phone to record your heart rhythm. - You can share these recordings with your primary care doctor. If you record a rhythm that concerns you, please call our office to arrange a follow-up visit to review it. - Remember that chest pain that hurts when you press on the area is typically not coming from your heart. - You do not need a scheduled follow-up appointment at this time. Please follow up with us as needed for any new or worsening symptoms. Patient was informed and verbally consented to the use of an ambient scribe for clinic note documentation during this visit. Visit time spent on chart review, interview, assessment, orders, documentation. Coding Level of Care Code Est Pt Level 4 (57838) Add On Problem Visit Only Diagnoses Intercostal pain R07.82 Chest pain type: intercostal pain Palpitations R00.2 Abnormal finding on EKG R94.31 Hospital discharge follow-up Z51.89 Time Spent (min) 28
[2025-10-01 09:09] VITALS: BP 108/62; PULSE 96; BMI 27.6
== END 2025-10-01 09:40 | disposition home or self-care (01) ==
LOC: HO.HCS 08:55
PROVIDERS: Visit Provider Nurse Practitioner Family
DX: R07.82 Intercostal pain (principal); R00.2 Palpitations; R94.31 Abnormal electrocardiogram [ECG] [EKG]; Z51.89 Encounter for other specified aftercare
CPT/HCPCS: 99214; G2211

== ENCOUNTER → 2025-10-01 08:54 | Outpatient (BNVA) | payer MEDICARE, MEDICAID, SELFPAY | PROVIDERS: Visit Provider Nurse Practitioner Family | DX: R07.82 Intercostal pain (principal); R00.2 Palpitations; R94.31 Abnormal electrocardiogram [ECG] [EKG]; Z51.89 Encounter for other specified aftercare | CPT/HCPCS: 99212 ==